=== PATIENT | male | born 1975 | race Caucasian/White ===

== ENCOUNTER 2019-03-14 06:05 | Inpatient (IN) | payer MEDICARE, OTHER ==
[2019-03-14] VITALS (19 sets, daily range): BP systolic 99–158; BP diastolic 64–95
[~2019-03-14] VITALS: Ht 142.2 cm; Wt 44.7 kg
--- NOTE | 2019-03-14 06:00 | NUR ---
Patient admitted to room 105 at 0545 from [facility], this RN received report from Rhina TY. Patient was transferred over to bed, placed on monitor, RT at bedside placed patient on vent. Patient currently sedated. Patient does react to pain. Attempt was made to orient patient to room, call light, and hospital protocol-unable to assess, pt is currently sedated. Family in waiting room updated on patient status. Dr. Leyva called for admission orders.
[~2019-03-14 06:05] MED LIST: CELE200C PO; CHOL500016 PO; OMEP40CA45 PO; PHEN100C PO; PHEN50TA3 PO; [UNRECOGNIZED DRUG - OTHER] PO
[2019-03-14] MEDS ORDERED: MORPHINE SULFATE 2 MG/ML VIAL. IV PRN (06:30)
[2019-03-14] MEDS ORDERED: fentaNYL PF VIAL 100 MCG/2 ML VIAL IV PRN ×2 (06:30)
[2019-03-14] MEDS ORDERED: PROPOFOL 100 ML IV PRN (06:30)
[2019-03-14] MEDS ORDERED: MORPHINE SULFATE 4 MG/ML VIAL. IV PRN (06:30)
[2019-03-14] MEDS ORDERED: ASPIRIN ENTERIC COATED 325 MG TABLET.DR. PO SCH (08:00)
[2019-03-14 08:09] LABS: BASO % 0 % (0-3); EOS % 0 % (0-3); HEMATOCRIT 42.4 % (39.0-53.0); HEMOGLOBIN 14.5 g/dL (13.0-17.5); LYMPH # 0.7 x10^3/uL (1.0-4.8); LYMPH % 6 % (24-48); MEAN CORPUSCULAR HEMOGLOBIN 31 pg (25-35); MEAN CORPUSCULAR HGB CONC 34 g/dL (31-37); MEAN CORPUSCULAR VOLUME 90 fL (79-100); MONO # 0.7 x10^3/uL (0.0-1.1); MONO % 6 % (0-9); NEUT # 11.5 x10^3/uL (1.8-7.7); NEUT % 89 % (31-73); PLATELET COUNT 130 x10^3/uL (140-400); RED BLOOD COUNT 4.69 x10^6/uL (4.30-5.70); WHITE BLOOD COUNT 12.9 x10^3/uL (4.0-11.0)
--- NOTE | 2019-03-14 08:31 | RAD ---
PORTABLE CHEST 1V INDICATION: Intubated. COMPARISON STUDY: 03/14/2019. FINDINGS: Left chest tube in place, with sidehole overlying the chest wall. Stable endotracheal tube, enteric tube, and left IJ central venous catheter Lungs: Partially expanded left lung. Stable left lung opacities. Pleura: Persistent left pneumothorax. Heart and Mediastinum: Stable cardiomediastinal silhouette and great vessels. IMPRESSION: 1. Left chest tube with sidehole overlying the chest wall, possibly not within the pleural space. Remaining life support devices as above. 2. Partial expansion of the left lung with persistent pneumothorax. Electronically signed by: Patrick Palma MD (03/14/2019 8:28 AM) [facility]
[2019-03-14 08:37] LABS: ALBUMIN 3.3 g/dL (3.4-5.0); ALBUMIN/GLOBULIN RATIO 0.8 (1.0-1.7); CALCIUM 9.5 mg/dL (8.5-10.1); CREATININE 0.6 mg/dL (0.7-1.3); GFR 147.8; POTASSIUM 3.6 mmol/L (3.5-5.1); TOTAL BILIRUBIN 0.4 mg/dL (0.2-1.0); TOTAL PROTEIN 7.6 g/dL (6.4-8.2)
[2019-03-14] MEDS ORDERED: ACETAMINOPHEN 325 MG TABLET. PO PRN (08:45)
[2019-03-14] MEDS ORDERED: ASPIRIN RECTAL 300 MG SUPP. PR PRN (08:45)
[2019-03-14] MEDS: CHLORHEXIDINE 0.12% 15 ML MOUTHWASH. MM SCH ×2 (09:00→21:40)
[2019-03-14] MEDS: AMINO AC 3%/ELECTROLYTE/GLYCER 1,000 ML IV SCH ×2 (09:09→21:42)
[2019-03-14] MEDS: FOSPHENYTOIN 100 MG/2 ML VIAL. IV SCH ×3 (09:10→21:41)
[2019-03-14] MEDS: PANTOPRAZOLE IV PUSH 40 MG VIAL. IVP SCH ×2 (09:10→21:41)
[2019-03-14 09:42] LABS: BASE EXCESS ABG 7 mmol/L (-3-3); HCO3 ABG 30 mmol/L (21-28); PCO2 ABG 37 mmHg (35-46); PO2 ABG 249 mmHg (75-108); SAT O2 ABG 99 % (92-99)
[2019-03-14 09:44] LABS: FIO2 ABG 80
[2019-03-14 11:17] LABS: % BANDS 15 % (0-9); % LYMPHS 9 % (24-48); % MONOS 5 % (0-10); % SEGS 71 % (35-66); PLT ESTIMATE DECREASED (ADEQUATE)
--- NOTE | 2019-03-14 11:29 | PDOC2 ---
NEUROLOGY CONSULT Date of Admission Date of Admission DATE: 03/14/19 TIME: 11:20 Reason for Consult Reason for Consult: stroke Referring Physician Referring Physician: Dr. Leyva Source Source: Chart review History of Present Illness History of Present Illness The patient is a 44-year-old retirement resident with history of cerebral palsy and seizures. He came to [facility] yesterday with nausea, vomiting, diarrhea, malaise, weakness, and fever. He did have lactic acidosis. There was also leukocytosis. CT of the abdomen showed gastric distention with air and contrast fluid level. He developed increasing respiratory distress and obtundation. He had a central line placed which caused a pneumothorax and then was intubated. he has not had any witness seizure activity. He did have abnormal head CT as reviewed below, CT in [place] was negative. There is no listed history of stroke. Past Medical History Cardiovascular: Other ( congenital heart disease, details not known) CENTRAL NERVOUS SYSTEM: Seizure, Other (Cerebral palsy) GI: Other ( esophagitis) Renal/: Urinary Incontinence Past Surgical History Past Surgical History: No pertinent history Family History Family History: Other ( unknown) Social History Social History Lives in retirement, no known tobacco, alcohol, or street drug use Current Medications Current Medications Current Medications Fentanyl Citrate 30 ml @ 0 mls/hr CONT PRN IV SEE PROTOCOL; Start 03/14/19 at 06:30 Propofol 100 ml @ 0 mls/hr CONT PRN IV SEE PROTOCOL; Start 03/14/19 at 06:30 Fentanyl Citrate (Fentanyl 2ml Vial) 25 mcg PRN Q1HR PRN IV SEE COMMENTS; Start 03/14/19 at 06:30 Fentanyl Citrate (Fentanyl 2ml Vial) 50 mcg PRN Q1HR PRN IV SEE COMMENTS; Start 03/14/19 at 06:30 Chlorhexidine Gluconate (Peridex) 15 ml BID MM ; Start 03/14/19 at 09:00 Morphine Sulfate (Morphine Sulfate) 2 mg PRN Q1HR PRN IV SEE COMMENTS.; Start 03/14/19 at 06:30 Morphine Sulfate (Morphine Sulfate) 4 mg PRN Q1HR PRN IV SEE COMMENTS.; Start 03/14/19 at 06:30 Ceftriaxone Sodium (Rocephin) 1 gm Q24H IVP ; Start 03/14/19 at 11:00 Metronidazole 100 ml @ 100 mls/hr Q8HRS IV Last administered on 03/14/19 09:11; Start 03/14/19 at 09:00 Fosphenytoin Sodium (Cerebyx) 100 mg Q8HRS IV Last administered on 03/14/19 09:10; Start 03/14/19 at 09:00 Pantoprazole Sodium (PROTONIX VIAL for IV PUSH) 40 mg BID IVP Last administered on 03/14/19 09:10; Start 03/14/19 at 09:00 Amino Acids/ Glycerin/ Electrolytes 1,000 ml @ 80 mls/hr [id number] IV Last administered on 03/14/19 09:09; Start 03/14/19 at 08:45 Acetaminophen (Tylenol) 650 mg PRN Q6HRS PRN PO TEMP > 100.4F; Start 03/14/19 at 08:45 Acetaminophen (Tylenol Supp) 650 mg PRN Q4HRS PRN VA TEMP > 100.4F; Start 03/14/19 at 08:45 Aspirin (Ecotrin) 325 mg [id number] PO Last administered on 03/14/19 09:14; Start 03/14/19 at 08:00 Aspirin (Aspirin Rectal Supp) 300 mg PRN DAILY PRN VA IF UNABLE TO TAKE PO; Start 03/14/19 at 08:45 Active Scripts Active Reported Omeprazole 40 Mg Capsule.dr 40 Mg PO DAILY Phenytoin 50 Mg Tab.chew 100 Mg PO QHS Phenytoin 50 Mg Tab.chew 75 Mg PO DAILY08 Allergies Allergies: Coded Allergies: No Known Drug Allergies (Unverified , 10/10/14) ROS Review of System Not reliably obtained Physical Exam Physical Examination General: Well-developed, well-nourished white male in no acute distress HEENT: Normocephalic andatraumatic. Temporal arteriespulsatile and nontender. Neck: Supple without bruit, no meningismus Musculoskeletal: Stability:see neurologic. Gait exam:see neurologic. Tone:see neurologic.Strength:see neurologic. Neurological: Mental Status:orientation, memory, attention span/concentration, language, fund of knowledge: intubated and sedated. Cranial Nerves:Pupils equal and reactive to light. There is no facial asymmetry. All other cranial related problems are negative except as mentioned before.Reflexes:2+ and symmetric with silent p lantar responses. Motor: No movement to pain, increased tone in all 4 extremities. Coordination and gait:Not testable. Sensory: not testable. Vitals VITALS Vital Signs Date Time Temp Pulse Resp B/P (MAP) Pulse Ox O2 Delivery O2 Flow Rate FiO2 03/14/19 09:00 100 Ventilator 03/14/19 06:45 58 16 141/86 (104) 03/14/19 06:00 98.1 98.1 Labs Labs Laboratory Tests Test 03/14/19 07:57 03/14/19 09:00 White Blood Count 12.9 x10^3/uL (4.0-11.0) Red Blood Count 4.69 x10^6/uL (4.30-5.70) Hemoglobin 14.5 g/dL (13.0-17.5) Hematocrit 42.4 % (39.0-53.0) Mean Corpuscular Volume 90 fL (79-100) Mean Corpuscular Hemoglobin 31 pg (25-35) Mean Corpuscular Hemoglobin Concent 34 g/dL (31-37) Red Cell Distribution Width 14.0 % (11.5-14.5) Platelet Count 130 x10^3/uL (140-400) Neutrophils (%) (Auto) 89 % (31-73) Lymphocytes (%) (Auto) 6 % (24-48) Monocytes (%) (Auto) 6 % (0-9) Eosinophils (%) (Auto) 0 % (0-3) Basophils (%) (Auto) 0 % (0-3) Neutrophils # (Auto) 11.5 x10^3/uL (1.8-7.7) Lymphocytes # (Auto) 0.7 x10^3/uL (1.0-4.8) Monocytes # (Auto) 0.7 x10^3/uL (0.0-1.1) Eosinophils # (Auto) 0.0 x10^3/uL (0.0-0.7) Basophils # (Auto) 0.0 x10^3/uL (0.0-0.2) Segmented Neutrophils % 71 % (35-66) Band Neutrophils % 15 % (0-9) Lymphocytes % 9 % (24-48) Monocytes % 5 % (0-10) Platelet Estimate Decreased (ADEQUATE) Sodium Level 149 mmol/L (136-145) Potassium Level 3.6 mmol/L (3.5-5.1) Chloride Level 110 mmol/L (98-107) Carbon Dioxide Level 31 mmol/L (21-32) Anion Gap 8 (6-14) Blood Urea Nitrogen 5 mg/dL (8-26) Creatinine 0.6 mg/dL (0.7-1.3) Estimated GFR (Cockcroft-Gault) 147.8 BUN/Creatinine Ratio 8 (6-20) Glucose Level 124 mg/dL (70-99) Lactic Acid Level 1.8 mmol/L (0.4-2.0) Calcium Level 9.5 mg/dL (8.5-10.1) Total Bilirubin 0.4 mg/dL (0.2-1.0) Aspartate Amino Transf (AST/SGOT) 39 U/L (15-37) Alanine Aminotransferase (ALT/SGPT) 26 U/L (16-63) Alkaline Phosphatase 106 U/L (46-116) Total Protein 7.6 g/dL (6.4-8.2) Albumin 3.3 g/dL (3.4-5.0) Albumin/Globulin Ratio 0.8 (1.0-1.7) O2 Saturation 99 % (92-99) Arterial Blood pH 7.52 (7.35-7.45) Arterial Blood pCO2 at Patient Temp 37 mmHg (35-46) Arterial Blood pO2 at Patient Temp 249 mmHg (75-108) Arterial Blood HCO3 30 mmol/L (21-28) Arterial Blood Base Excess 7 mmol/L (-3-3) FiO2 80 Laboratory Tests Test 03/14/19 07:57 03/14/19 09:00 White Blood Count 12.9 x10^3/uL (4.0-11.0) Red Blood Count 4.69 x10^6/uL (4.30-5.70) Hemoglobin 14.5 g/dL (13.0-17.5) Hematocrit 42.4 % (39.0-53.0) Mean Corpuscular Volume 90 fL (79-100) Mean Corpuscular Hemoglobin 31 pg (25-35) Mean Corpuscular Hemoglobin Concent 34 g/dL (31-37) Red Cell Distribution Width 14.0 % (11.5-14.5) Platelet Count 130 x10^3/uL (140-400) Neutrophils (%) (Auto) 89 % (31-73) Lymphocytes (%) (Auto) 6 % (24-48) Monocytes (%) (Auto) 6 % (0-9) Eosinophils (%) (Auto) 0 % (0-3) Basophils (%) (Auto) 0 % (0-3) Neutrophils # (Auto) 11.5 x10^3/uL (1.8-7.7) Lymphocytes # (Auto) 0.7 x10^3/uL (1.0-4.8) Monocytes # (Auto) 0.7 x10^3/uL (0.0-1.1) Eosinophils # (Auto) 0.0 x10^3/uL (0.0-0.7) Basophils # (Auto) 0.0 x10^3/uL (0.0-0.2) Segmented Neutrophils % 71 % (35-66) Band Neutrophils % 15 % (0-9) Lymphocytes % 9 % (24-48) Monocytes % 5 % (0-10) Platelet Estimate Decreased (ADEQUATE) Sodium Level 149 mmol/L (136-145) Potassium Level 3.6 mmol/L (3.5-5.1) Chloride Level 110 mmol/L (98-107) Carbon Dioxide Level 31 mmol/L (21-32) Anion Gap 8 (6-14) Blood Urea Nitrogen 5 mg/dL (8-26) Creatinine 0.6 mg/dL (0.7-1.3) Estimated GFR (Cockcroft-Gault) 147.8 BUN/Creatinine Ratio 8 (6-20) Glucose Level 124 mg/dL (70-99) Lactic Acid Level 1.8 mmol/L (0.4-2.0) Calcium Level 9.5 mg/dL (8.5-10.1) Total Bilirubin 0.4 mg/dL (0.2-1.0) Aspartate Amino Transf (AST/SGOT) 39 U/L (15-37) Alanine Aminotransferase (ALT/SGPT) 26 U/L (16-63) Alkaline Phosphatase 106 U/L (46-116) Total Protein 7.6 g/dL (6.4-8.2) Albumin 3.3 g/dL (3.4-5.0) Albumin/Globulin Ratio 0.8 (1.0-1.7) O2 Saturation 99 % (92-99) Arterial Blood pH 7.52 (7.35-7.45) Arterial Blood pCO2 at Patient Temp 37 mmHg (35-46) Arterial Blood pO2 at Patient Temp 249 mmHg (75-108) Arterial Blood HCO3 30 mmol/L (21-28) Arterial Blood Base Excess 7 mmol/L (-3-3) FiO2 [address] head without contrast: Reason for examination: Pupils nonreactive. Mental status changes. Comparison is made to previous study dated 08/11/2018. Axial images were obtained through the brain. No contrast was administered. Ventricular systems are dilated but unchanged. There appears to be a new large area of decrease density involving the left temporal, parietal and occipital lobes and the left basal ganglia consistent with a large left middle cerebral arterial distribution infarct. There does appear to be a new 5 mm shift of midline to the right. There is no intraparenchymal hemorrhage. No abnormalities of seen at the orbits. No acute bony abnormalities are seen. IMPRESSION: New area of decreased density involving the left temporal, parietal and occipital lobes and the left basal ganglia consistent with a large right middle cerebral arterial distribution infarct. New 5 mm shift of midline to the right. No intraparenchymal hemorrhage evident.. CT angiograms of the head and neck with contrast: Helical images were obtained through the head and neck with intravenous administration of 50 cc Omnipaque 350 using angiographic protocol. 3-D MIPS reconstruction was performed in sagittal and coronal planes. The intracranial carotid arteries bilaterally are patent. There is normal bifurcation into their respective anterior and middle cerebral arteries. A focal site of stenosis or occlusion is not seen. The intracranial vertebral arteries and basilar artery are patent without a site of stenosis or occlusion. There appears be vascular flow in the superior cerebellar and posterior cerebral arteries bilaterally. No large vessel occlusion is identified. The brachiocephalic, left common carotid artery and left subclavian arteries arise from the aorta. The common carotid arteries and internal carotid arteries appear to be patent with no evidence of significant stenosis. The vertebral arteries arise from their respective subclavian arteries and show no evidence of stenosis or occlusions. There appears to be a cystic lesion in the right lobe of the thyroid gland posteriorly measuring approximately 1.5 cm in greatest dimension. Vocal cords are symmetric. Endotracheal tube and NG tube are present. Muscular bundles are symmetric. The parotid and submandibular gland show no gross abnormalities. No acute abnormality seen in the cervical spine. IMPRESSION: No intracranial vascular abnormalities are identified. The carotid and vertebral arteries in the neck are patent. Assessment/Plan Assessment/Plan Impression: Large left middle cerebral artery infarct, unknown time of onset, therefore not a candidate for alteplase or interventional radiology. Carotid studies on CTA are negative. Therefore this may have been a cardio-embolic phenomenon. Medical problems including sepsis syndrome and abdominal process cerebral palsy history Epilepsy history, on phenytoin, on intravenous phenytoin here. Recommendations: MRI of the brain See stroke orders Treatment of medical problems Thank you for letting me help with the patient's care. ROBBY SOLORZANO MD Mar 14, 2019 11:28
[2019-03-14] MEDS: cefTRIAXone IV Push 1 GM VIAL. IVP SCH (11:43)
--- NOTE | 2019-03-14 11:52 | HP ---
ADMIT DATE: 03/14/2019 HISTORY OF PRESENT ILLNESS: The patient is a 44-year-old male patient with cerebral palsy who lived in a care home and was admitted to the Emergency Room of [facility] with recurrent bouts of nausea, vomiting as well as diarrhea. Apparently, his roommate got sick a day before he started having these symptoms. On the day of admission, also has malaise, weakness and fever. His roommate developed episode of nausea, vomiting, diarrhea. No other significant illnesses in the care home were reported. He has been taking his medication as previously directed. He was extensively investigated in the Emergency Room. His lab work showed he has marked lactic acidosis with lactic acid initially as high as 4.1 that has risen further to 7.6; however, his serum lipase and amylase were normal. He did have mild leukocytosis with a white cell count 12,500. His urinalysis was essentially unremarkable. Toxic screen was negative except for his phenytoin level, was anything in the upper limit of normal. He has had acute abdomen series, which showed that there is no new lobar consolidation, pleural fluid or pneumothorax. Pericardial cardiac silhouette is again enlarged. There is unchanged fullness of the right hilar region. There is an S-shaped scoliosis of the thoracolumbar spine. No free air is identified. No gas dilated bowel identified. However CT scan of the abdomen and pelvis showed that the patient has gastric distention with air and contrast fluid level, has thickened wall with narrowed lumen of the duodenum, partial obstruction cannot be excluded. He has prominent renal pelvis bilaterally, but no apparent obstructive uropathy. He did have an NG tube placed. He was started on IV fluid, IV Dilantin, Zofran as well as IV Rocephin and Flagyl. His NG tube was put to intermittent suction and he remained throughout yesterday unresponsive and apparently the patient became extremely short of breath, markedly congested. His IV fluids were turned off. He was given Lasix and thick sputum was suctioned as he was in extreme respiratory distress. The ER physician was consulted. The patient was intubated and apparently had a central line placed. Unfortunately, this resulted in pneumothorax for which a chest tube was placed and eventually the patient was transferred to [facility] Prior to transfer, the patient has a CT scan of the head and neck, which basically showed that the patient has a new area of decreased density involving the left temporoparietal and occipital lobes and left basal ganglia consistent with a large right middle cerebral territory distribution infarct, new 5 mm shift of midline to the right and no intraparenchymal hemorrhage evident. CT angiogram of the head and neck with contrast showed no intracranial vascular abnormality identified. The carotid and vertebral arteries in the neck are patent. CT angiogram of the chest with contrast showed the patient has large left-sided pneumothorax with collapse of the left upper and lower lobes, patchy infiltrate in the right lobe. No evidence of pulmonary embolus and the patient had a chest tube placed and an x-ray was done, showed left chest tube in place with reexpansion of the left lung. There is still some density consistent with atelectasis at the left lung base. The patient was transferred to [facility] with acute hypoxic respiratory failure requiring intubation and mechanical ventilation. He has also iatrogenic pneumothorax for which a chest tube was placed. He has also a new area of decreased density involving the left temporoparietal and occipital lobes and the left basal ganglia consistent with large right middle cerebral artery territory infarct. He was started on propofol as well as fentanyl citrate and we will continue with IV antibiotic in the form of Rocephin and Flagyl. We will consult the sales floor associate as well as the neurologist. PAST MEDICAL HISTORY: Significant for cerebral palsy and seizure disorder. He has some form of congenital heart disease. He also had severe esophagitis and marked cognitive impairment. He has marked muscle wasting and flexion contraction of all 4 limbs. PAST SURGICAL HISTORY: Significant for right great toe amputation done about 12 months ago. FAMILY HISTORY: His mother is . His father is . His grandmother used to be his liner checker and was his DPOA. His aunt now takes care of his financial affairs, but she is not his DPOA. SOCIAL HISTORY: Apparently, he does not smoke, drink alcohol or use recreational drugs. He is single, never , has no children. ALLERGIES: He has no known drug allergies. MEDICATIONS: He is on following medication at care home. He is on phenytoin sodium mg capsule p.o. daily, phenytoin sodium extended release mg daily and phenytoin sodium 100 mg at bedtime. He is on polyethylene glycol 17 grams daily and senna 2 tablets twice a day, omeprazole 40 mg daily. REVIEW OF SYSTEMS: Unobtainable. LABORATORY AND DIAGNOSTIC DATA: His lab work prior to transferring him to [facility] showed a white cell count of 12,900, hemoglobin 14, hematocrit 43, MCV 91, and platelet count of 137,000 with normal manual differential. His chemistry showed a serum sodium 146, potassium 2.8, chloride 106, bicarbonate 31, anion gap of 9, BUN 5, creatinine 0.7, estimated GFR was 123 mL per minute, his glucose 114, calcium was 9.3. Total bilirubin, AST, ALT, alkaline phosphatase were normal. Total protein was 7.1, albumin was 3.1. His prothrombin time, INR and aPTT were all normal. Urinalysis was essentially unremarkable. Toxic screen was also unremarkable and serology for influenza A and B were negative. ASSESSMENT AND PLAN: In summary, this is a 44-year-old male patient with cerebral palsy who is a care home resident, was admitted originally with recurrent bouts of nausea, vomiting, diarrhea. He was noted to have marked gastric dilatation and also wall thickening and narrowing of the lumen of the duodenum for which he has an NG tube that was put to intermittent suction. He was started on IV antibiotic for possible aspiration in the form of Rocephin and Flagyl. He apparently became extremely short of breath and underwent chest x-ray. His IV fluids were discontinued. He was again treated with Lasix, was intubated, started on mechanical ventilation. He has also a central line placed, unfortunately that was complicated by pneumothorax that required chest tube placement. His CT scan of the head showed that he has large infarct involving the left temporoparietal and occipital lobes and the left basal ganglia consistent with large right middle cerebral artery distribution infarct. The plan is obviously to continue with NG tube to intermittent suction. He has hypokalemia, we will replenish. Continue mechanical ventilation. We will continue with IV antibiotic. Consulting the sales floor associate as well as the neurologist. Currently, his aunt takes care of financial affairs but not DPOA. CAREY BURTON MD DR: ELE/quita JOB#: [id number] / [id number]
--- NOTE | 2019-03-14 12:10 | NUR ---
SS following for discharge planning. SS reviewed pt chart and spoke with pt's Aunt, Lynette, via phone. Pt is from [facility], , in [place], [place]. Pt is currently on the vent. SS will continue to follow for discharge planning.
--- NOTE | 2019-03-14 12:33 | PDOC ---
PULMONARY PROGRESS NOTES Vitals Vital Signs Date Time Temp Pulse Resp B/P (MAP) Pulse Ox O2 Delivery O2 Flow Rate FiO2 03/14/19 09:00 100 Ventilator 03/14/19 06:45 58 16 141/86 (104) 03/14/19 06:00 98.1 98.1 Labs Laboratory Tests Test 03/14/19 07:57 03/14/19 09:00 White Blood Count 12.9 x10^3/uL (4.0-11.0) Red Blood Count 4.69 x10^6/uL (4.30-5.70) Hemoglobin 14.5 g/dL (13.0-17.5) Hematocrit 42.4 % (39.0-53.0) Mean Corpuscular Volume 90 fL (79-100) Mean Corpuscular Hemoglobin 31 pg (25-35) Mean Corpuscular Hemoglobin Concent 34 g/dL (31-37) Red Cell Distribution Width 14.0 % (11.5-14.5) Platelet Count 130 x10^3/uL (140-400) Neutrophils (%) (Auto) 89 % (31-73) Lymphocytes (%) (Auto) 6 % (24-48) Monocytes (%) (Auto) 6 % (0-9) Eosinophils (%) (Auto) 0 % (0-3) Basophils (%) (Auto) 0 % (0-3) Neutrophils # (Auto) 11.5 x10^3/uL (1.8-7.7) Lymphocytes # (Auto) 0.7 x10^3/uL (1.0-4.8) Monocytes # (Auto) 0.7 x10^3/uL (0.0-1.1) Eosinophils # (Auto) 0.0 x10^3/uL (0.0-0.7) Basophils # (Auto) 0.0 x10^3/uL (0.0-0.2) Segmented Neutrophils % 71 % (35-66) Band Neutrophils % 15 % (0-9) Lymphocytes % 9 % (24-48) Monocytes % 5 % (0-10) Platelet Estimate Decreased (ADEQUATE) Sodium Level 149 mmol/L (136-145) Potassium Level 3.6 mmol/L (3.5-5.1) Chloride Level 110 mmol/L (98-107) Carbon Dioxide Level 31 mmol/L (21-32) Anion Gap 8 (6-14) Blood Urea Nitrogen 5 mg/dL (8-26) Creatinine 0.6 mg/dL (0.7-1.3) Estimated GFR (Cockcroft-Gault) 147.8 BUN/Creatinine Ratio 8 (6-20) Glucose Level 124 mg/dL (70-99) Lactic Acid Level 1.8 mmol/L (0.4-2.0) Calcium Level 9.5 mg/dL (8.5-10.1) Total Bilirubin 0.4 mg/dL (0.2-1.0) Aspartate Amino Transf (AST/SGOT) 39 U/L (15-37) Alanine Aminotransferase (ALT/SGPT) 26 U/L (16-63) Alkaline Phosphatase 106 U/L (46-116) Total Protein 7.6 g/dL (6.4-8.2) Albumin 3.3 g/dL (3.4-5.0) Albumin/Globulin Ratio 0.8 (1.0-1.7) O2 Saturation 99 % (92-99) Arterial Blood pH 7.52 (7.35-7.45) Arterial Blood pCO2 at Patient Temp 37 mmHg (35-46) Arterial Blood pO2 at Patient Temp 249 mmHg (75-108) Arterial Blood HCO3 30 mmol/L (21-28) Arterial Blood Base Excess 7 mmol/L (-3-3) FiO2 80 Laboratory Tests Test 03/14/19 07:57 03/14/19 09:00 White Blood Count 12.9 x10^3/uL (4.0-11.0) Red Blood Count 4.69 x10^6/uL (4.30-5.70) Hemoglobin 14.5 g/dL (13.0-17.5) Hematocrit 42.4 % (39.0-53.0) Mean Corpuscular Volume 90 fL (79-100) Mean Corpuscular Hemoglobin 31 pg (25-35) Mean Corpuscular Hemoglobin Concent 34 g/dL (31-37) Red Cell Distribution Width 14.0 % (11.5-14.5) Platelet Count 130 x10^3/uL (140-400) Neutrophils (%) (Auto) 89 % (31-73) Lymphocytes (%) (Auto) 6 % (24-48) Monocytes (%) (Auto) 6 % (0-9) Eosinophils (%) (Auto) 0 % (0-3) Basophils (%) (Auto) 0 % (0-3) Neutrophils # (Auto) 11.5 x10^3/uL (1.8-7.7) Lymphocytes # (Auto) 0.7 x10^3/uL (1.0-4.8) Monocytes # (Auto) 0.7 x10^3/uL (0.0-1.1) Eosinophils # (Auto) 0.0 x10^3/uL (0.0-0.7) Basophils # (Auto) 0.0 x10^3/uL (0.0-0.2) Segmented Neutrophils % 71 % (35-66) Band Neutrophils % 15 % (0-9) Lymphocytes % 9 % (24-48) Monocytes % 5 % (0-10) Platelet Estimate Decreased (ADEQUATE) Sodium Level 149 mmol/L (136-145) Potassium Level 3.6 mmol/L (3.5-5.1) Chloride Level 110 mmol/L (98-107) Carbon Dioxide Level 31 mmol/L (21-32) Anion Gap 8 (6-14) Blood Urea Nitrogen 5 mg/dL (8-26) Creatinine 0.6 mg/dL (0.7-1.3) Estimated GFR (Cockcroft-Gault) 147.8 BUN/Creatinine Ratio 8 (6-20) Glucose Level 124 mg/dL (70-99) Lactic Acid Level 1.8 mmol/L (0.4-2.0) Calcium Level 9.5 mg/dL (8.5-10.1) Total Bilirubin 0.4 mg/dL (0.2-1.0) Aspartate Amino Transf (AST/SGOT) 39 U/L (15-37) Alanine Aminotransferase (ALT/SGPT) 26 U/L (16-63) Alkaline Phosphatase 106 U/L (46-116) Total Protein 7.6 g/dL (6.4-8.2) Albumin 3.3 g/dL (3.4-5.0) Albumin/Globulin Ratio 0.8 (1.0-1.7) O2 Saturation 99 % (92-99) Arterial Blood pH 7.52 (7.35-7.45) Arterial Blood pCO2 at Patient Temp 37 mmHg (35-46) Arterial Blood pO2 at Patient Temp 249 mmHg (75-108) Arterial Blood HCO3 30 mmol/L (21-28) Arterial Blood Base Excess 7 mmol/L (-3-3) FiO2 80 Medications Active Scripts Medications Dose Route/Sig Max Daily Dose Days Date Category Omeprazole 40 Mg Capsule.dr 40 Mg PO DAILY 04/30/18 Reported Phenytoin 50 Mg Tab.chew 100 Mg PO QHS 04/30/18 Reported Phenytoin 50 Mg Tab.chew 75 Mg PO DAILY08 04/30/18 Reported Impression . NOTE DICTATED REMOVED CHEST TUBE NON FUNCTIONAL REPLACED WITH SMALL COOK CATH NO COMPLICATIONS WILL CONTINUE SUPPORT FOR RESP FAILURE AND SEPSIS NEURO CONSULTED ALEX LYONS MD Mar 14, 2019 12:33
--- NOTE | 2019-03-14 13:36 | RAD ---
PORTABLE CHEST 1V 1:02 PM Clinical indications: Chest tube placement Comparison: Same day performed at 7:06 AM Findings: Previously seen large bore left-sided chest tube has been replaced with a smaller bore chest tube. The tip of this chest tube is located within the medial upper aspect. No pneumothorax is seen. No pleural effusion is evident. Atelectasis of the left lung field has improved. No new lung infiltrate is seen on the right side. NG tube tip remains within the proximal body of the stomach. ET tube tip is located 2.5 cm above the level of the jovita. Left IJ central line tip is seen within the left brachiocephalic vein. IMPRESSION: Placement of a new smaller bore left-sided chest tube with no pneumothorax. Improvement of left lung field atelectasis. Electronically signed by: Cody Sinclair MD (03/14/2019 1:33 PM) [facility]
[2019-03-14] MEDS ORDERED: PHEN50TA3 PO (15:57)
--- NOTE | 2019-03-14 16:01 | RAD ---
MRI Brain without contrast History: CVA Technique: Multiplanar, multisequential noncontrast MR imaging was performed of the brain. Comparison: There is no previous MRI exam available, correlation made to 03/14/2019 and August 11, [address] exams Findings: There is very large area of restricted diffusion of the left cerebral hemisphere greatest of the temporal occipital lobes extending to the parasagittal parietal lobe with separate small focus of the left frontal cortex also foci of the left thalamus and basal ganglia. There is also restricted diffusion involving the right temporal lobe greater medially. There is left uncal herniation. There is degree of herniation of the medial left temporal lobe inferior to the tentorium by about 2 cm. There is also lesser degree of inferior herniation of the right temporal parenchyma estimated about 1 cm. There is also degree of diffusion signal abnormality of the distorted brainstem and martín, also seen T2 and FLAIR hyperintense signal. There is associated variable acute parenchymal hemorrhage of the left temporal lobe extending to the cortical surface, hypointense on the T2 sequence and mostly isointense on T1 sequence with associated prominent decreased signal on gradient echo sequence. This also involves the inferiorly herniated portion of the left temporal lobe. There is also focus of parenchymal hemorrhage of the medial right temporal lobe site of restricted diffusion, also hypointense on T2 sequence, isointense very slightly hyperintense on T1 sequence and associated decreased signal greatest of sequence adjacent vasogenic edema or defined by T2 and FLAIR hyperintense signal. Right temporal horn is dilated, effacement of the left temporal horn. There is mild intraventricular hemorrhage in the left occipital horn. There is again lateral ventriculomegaly although findings present on older head CT exam. There is again more focal volume loss extending to the cortical surface of the left frontal lobe. There is fairly diffuse dysplastic appearance of the brain parenchyma other than sparing of the frontal lobes and segments of the left temporal lobe. There is visualization of the internal carotid arteries otherwise bilaterally at the skull base although intradural vertebral artery flow void not well- visualized on either side. Basilar artery flow-void is visualized. Small focus of signal change of the right martín is likely sequela of old lacunar infarct, also small focus along the margin of left lateral ventricle. Some mild increased FLAIR signal in the region of sylvian fissures bilaterally concerning for subarachnoid hemorrhage. Fourth ventricle is effaced greater inferiorly. Cerebellar tonsils are at the lower limits of normal. Impression: 1. There are large areas of restricted diffusion bilaterally greater on the left, evidence of recent acute/early subacute infarcts with areas of acute parenchymal hemorrhage and also mild intraventricular hemorrhage, also probable degree of subarachnoid hemorrhage. There is degree of inferior herniation of the hemorrhagic medial left temporal lobe below the tentorium by about 2 cm, to lesser degree on the right. There is left uncal herniation. There is distortion of the brainstem and superior martín. There is also diffusion signal abnormality of the brainstem likely component of ischemia and edema. Cerebellar tonsils at the lower limits of normal, effacement of the fourth ventricle greater inferiorly. 2. Intradural vertebral artery flow voids are not well visualized on either side on this exam although visualization of the basilar artery flow-void. 3. 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 4. There is again lateral ventriculomegaly although more chronic appearance. There is effacement of the left temporal horn, dilatation of the right temporal horn. Findings discussed with patient's nurse Hyacinth at 03/14/2019 2:23 PM, to inform doctor of findings. FOR INTERNAL CODING PURPOSES RESULT CODE: (C) MTDD
--- NOTE | 2019-03-14 18:09 | PDOC2 ---
PALLIATIVE CARE Palliative Care Note Palliative Care Consult requested by to address goals of care. Medical Assessment per medical record; Patient is intubated. Unresponsive to stimuli. Pupils equal -unresponsive. Vamsi+; Breeathing slightly over the vent. Gastric distention--NG tube. Aspiration; Pneumothorax --chest tube CVA--hemorrhagic---seen by Dr. Leal Patient was living in a correction. Parents are . Lynette Lantigua is his aunt/ POA for financial. No DPOA for health care. Per staff Dr. Leal will be talking with his Aunt at 9am. Code Status; Full Code. Plan: Arrange family meeting after Dr. Leal has discussion with aunt. SILVERIO HARPER Mar 14, 2019 18:09
--- NOTE | 2019-03-14 19:56 | CONS ---
DATE OF CONSULTATION: 03/14/2019 ATTENDING PHYSICIAN: Dr. Leyva. CONSULTING PHYSICIAN: Dr. Alex Lyons. REASON FOR CONSULTATION: The patient seen in pulmonary consultation at the request of Dr. Leyva for respiratory failure and vent management. HISTORY OF PRESENT ILLNESS: The patient is a 44-year-old group resident that has a history of cerebral palsy and seizures, came into the Emergency Room with nausea, vomiting, diarrhea, malaise, weakness, and fever. He had elevated lactic acid level. The patient had leukocytosis. The CT abdomen showed some gastric distention. The patient developed increasing respiratory failure. He subsequently underwent intubation, required a central line for IV fluids and IV antibiotics. Subsequently, had a complication of a pneumothorax, a chest tube was placed. The patient underwent a CT head, which was negative. He was transferred to [facility]. He is currently being treated for a sepsis. I discussed the case with Dr. Leyva. The patient is currently receiving IV antibiotics. I reviewed his x-ray, which reveals that the chest tube may be malpositioned outside of the pleural cavity. He does not have an air leak on chest tube. PAST MEDICAL HISTORY: Cerebral palsy, seizure disorder, some form of congenital heart disease. He has severe esophagitis, cognitive impairment, muscle wasting, and four-limb contractures. PAST SURGICAL HISTORY: Previous right toe amputation done approximately 12 months ago. FAMILY HISTORY: Mother and father . He has a grandmother, who used to be his caregiver and DPOA, his aunt is now his DPOA. Socially, he lives in a prison. No history of alcoholism. ALLERGIES: No known drug allergies. REVIEW OF SYSTEMS: Unobtainable secondary to the patient's condition. CURRENT MEDICATIONS: List was reviewed. He is receiving IV Flagyl along with the IV Rocephin. PHYSICAL EXAMINATION: GENERAL: The patient was in the intensive care unit. VITAL SIGNS: Stable. He is hemodynamically stable. Temperature is 98.1. HEENT: Orally placed endotracheal tube. CHEST: Full expansion, no wheezes. CARDIOVASCULAR: Regular rate and rhythm with S1, S2, no S3. ABDOMEN: Soft. EXTREMITIES: Contractures. NEUROLOGIC: The patient was sedated. LABORATORY DATA: Arterial blood gas revealed a pH of 7.52, PaCO2 of 37, pO2 of 239. White count was 12.9, hemoglobin and hematocrit were noted, and platelet count was 130. Electrolytes were noted. Sodium was elevated. Chloride was elevated. BUN was 5, creatinine was 0.6, glucose was 124. AST 39, albumin was 3.3. Chest x-ray once again revealed left-sided chest tube in place, malpositioned. There was partial expansion of the left lung. IMPRESSION: 1. Acute respiratory failure, multifactorial. 2. Suspect sepsis. 3. Large left middle cerebral artery infarct, unknown time of onset. 4. Cerebral palsy. 5. Epilepsy by history. 6. Nausea, vomiting, and diarrhea. 7. Possible aspiration pneumonia. PLAN: 1. We will continue current plan and continue current support with the assist ventilation and make adjustments to normalize pH. 2. Replace chest tube. 3. Empiric antibiotics. 4. Follow Neurology input. 5. Routine labs and follow routine labs. I do appreciate the privilege in sharing in the patient's care. ALEX LYONS MD DR: EVIE/quita JOB#: [id number] / [id number]
[2019-03-14] MEDS: ACETAMINOPHEN 650 MG SUPP.RECT. PR PRN (21:48)
[2019-03-15] VITALS (24 sets, daily range): BP systolic 109–137; BP diastolic 66–89
[2019-03-15] MEDS: FOSPHENYTOIN 100 MG/2 ML VIAL. IV SCH ×3 (06:00→22:00)
[2019-03-15 06:45] LABS: CHOLESTEROL/HDL RATIO 2.1
--- NOTE | 2019-03-15 07:38 | RAD ---
Examination: PORTABLE CHEST 1V History: Respiratory failure Comparison/Correlation: 03/14/2019 Portable Chest X-ray Exam Findings: Portable semiupright frontal view of the chest was obtained. Endotracheal tube and nasogastric tube are again seen. Left internal jugular catheter is again seen terminating within the left brachiocephalic vein. Tubing at the left lung base again seen. No pneumothorax. Left perihilar opacity which may represent atelectasis or scarring is again seen. Right lung field is clear. Levo convexity of the thoracolumbar spine is evident. Old left rib fractures are present. Impression: No change in pulmonary aeration. Electronically signed by: Esvin Crockett MD (03/15/2019 7:35 AM) [facility]
[2019-03-15 08:06] LABS: BASE EXCESS ABG 6 mmol/L (-3-3); HCO3 ABG 30 mmol/L (21-28); PCO2 ABG 44 mmHg (35-46); PO2 ABG 99 mmHg (75-108); SAT O2 ABG 98 % (92-99)
--- NOTE | 2019-03-15 08:22 | PN ---
DATE: 03/15/2019 SUBJECTIVE: The patient is resting slightly propped up in bed, in no apparent distress. He is on mechanical ventilation; however, he was able to breathe on his own, has a gag reflex. He has had an MRI done yesterday, which showed that the patient has large areas of restricted diffusion bilaterally, greater on the left, evidence of recent acute or early subacute infarct with areas of acute parenchymal hemorrhage and also mild intraventricular hemorrhage and also probable degree of subarachnoid hemorrhage. There is also degree of inferior herniation with the hemorrhagic medial left temporal lobe below the tentorium by about 2 cm to a lesser degree on the right. There is left uncal herniation. There is distortion of the brain stem and superior martín. There is also diffusion signal abnormality of the brainstem, likely component of ischemia and edema. Cerebellar tonsils at the lower limit of normal. Effacement of the fourth ventricle greater inferiorly. Intradural vertebral artery flow voids are not well visualized on either side of this exam, although visualization of the basilar artery flow void. Fairly diffuse dysplastic appearance of the brain. There is again more focal volume loss and encephalomalacia extending to the critical surface of the left frontal lobe, likely sequelae of old infarct. There is again lateral ventriculomegaly, although more chronic appearance. There is effacement of the left temporal horn, dilatation of the right temporal horn. His chest x-ray showed no pneumothorax, left perihilar opacity, which may represent atelectasis or scarring is again seen. Right lung montero are clear. Levoconvexity of the thoracolumbar spine is evident. Old left rib fractures are present. PHYSICAL EXAMINATION: GENERAL: On examining him this morning, he was resting slightly propped up in bed, no apparent distress. He was pale, cachectic, but no jaundice, cyanosis or thyromegaly. No jugular venous distention. No lower limb edema. VITAL SIGNS: His heart rate was 70, blood pressure was 129/82, temperature was 98.9, respiratory rate was 12 and oxygen saturation was 99%. HEAD, EYES, EARS, NOSE AND THROAT: Normocephalic, atraumatic. He has orotracheal and orogastric tube in place. NECK: Supple. HEART: Showed normal first and second heart sounds. No gallop or murmur. CHEST: Clear to auscultation. No crepitation or rhonchi. ABDOMEN: Distended, soft, nontender. NEUROLOGIC: He is encephalopathic, has marked muscle wasting and fixed flexion contracture. His intake was 1870, output was 2260. LABORATORY DATA: As of this morning, his white cell count was 12,900, hemoglobin 14.5, hematocrit 42, MCV 90 and platelet count 130,000. His chemistry as of yesterday showed a serum sodium 149, potassium 3.6, chloride 110, bicarbonate 31, anion gap of 8, BUN 5, creatinine was 0.6, estimated GFR was 147 mL per minute. His blood gases showed a pH of 7.52, pCO2 of 37, pO2 of 149, bicarbonate 30, and oxygen saturation was 99% on FiO2 of 80%. ASSESSMENT: 1. Acute respiratory failure. 2. 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 3. Cerebral palsy. 4. Epilepsy. 5. Nausea and vomiting and diarrhea, subsided, possible aspiration pneumonia and pneumothorax. PLAN: Continue with mechanical ventilation. Continue with empiric antibiotic. Await discussion between the family and palliative care team. CAREY BURTON MD DR: ELE/quita JOB#: [id number] / [id number]
[2019-03-15 08:28] LABS: FIO2 ABG 40
[2019-03-15] MEDS: PANTOPRAZOLE IV PUSH 40 MG VIAL. IVP SCH ×2 (10:22→21:13)
[2019-03-15] MEDS: AMINO AC 3%/ELECTROLYTE/GLYCER 1,000 ML IV SCH ×2 (10:22→22:15)
[2019-03-15] MEDS: CHLORHEXIDINE 0.12% 15 ML MOUTHWASH. MM SCH ×2 (10:22→21:13)
--- NOTE | 2019-03-15 10:35 | PDOC ---
PULMONARY PROGRESS NOTES Subjective ON VENT AC MODE Vitals Vital Signs Date Time Temp Pulse Resp B/P (MAP) Pulse Ox O2 Delivery O2 Flow Rate FiO2 03/15/19 09:15 98 Ventilator 03/15/19 07:00 70 12 129/82 (98) 03/15/19 04:00 98.9 98.9 Lungs: Clear Cardiovascular: S1, S2 Abdomen: Soft Extremities: Other (NO CHANGE) Labs Laboratory Tests Test 03/14/19 07:57 03/14/19 09:00 03/15/19 06:05 03/15/19 08:00 White Blood Count 12.9 x10^3/uL (4.0-11.0) Red Blood Count 4.69 x10^6/uL (4.30-5.70) Hemoglobin 14.5 g/dL (13.0-17.5) Hematocrit 42.4 % (39.0-53.0) Mean Corpuscular Volume 90 fL (79-100) Mean Corpuscular Hemoglobin 31 pg (25-35) Mean Corpuscular Hemoglobin Concent 34 g/dL (31-37) Red Cell Distribution Width 14.0 % (11.5-14.5) Platelet Count 130 x10^3/uL (140-400) Neutrophils (%) (Auto) 89 % (31-73) Lymphocytes (%) (Auto) 6 % (24-48) Monocytes (%) (Auto) 6 % (0-9) Eosinophils (%) (Auto) 0 % (0-3) Basophils (%) (Auto) 0 % (0-3) Neutrophils # (Auto) 11.5 x10^3/uL (1.8-7.7) Lymphocytes # (Auto) 0.7 x10^3/uL (1.0-4.8) Monocytes # (Auto) 0.7 x10^3/uL (0.0-1.1) Eosinophils # (Auto) 0.0 x10^3/uL (0.0-0.7) Basophils # (Auto) 0.0 x10^3/uL (0.0-0.2) Segmented Neutrophils % 71 % (35-66) Band Neutrophils % 15 % (0-9) Lymphocytes % 9 % (24-48) Monocytes % 5 % (0-10) Platelet Estimate Decreased (ADEQUATE) Sodium Level 149 mmol/L (136-145) Potassium Level 3.6 mmol/L (3.5-5.1) Chloride Level 110 mmol/L (98-107) Carbon Dioxide Level 31 mmol/L (21-32) Anion Gap 8 (6-14) Blood Urea Nitrogen 5 mg/dL (8-26) Creatinine 0.6 mg/dL (0.7-1.3) Estimated GFR (Cockcroft-Gault) 147.8 BUN/Creatinine Ratio 8 (6-20) Glucose Level 124 mg/dL (70-99) Lactic Acid Level 1.8 mmol/L (0.4-2.0) Calcium Level 9.5 mg/dL (8.5-10.1) Total Bilirubin 0.4 mg/dL (0.2-1.0) Aspartate Amino Transf (AST/SGOT) 39 U/L (15-37) Alanine Aminotransferase (ALT/SGPT) 26 U/L (16-63) Alkaline Phosphatase 106 U/L (46-116) Total Protein 7.6 g/dL (6.4-8.2) Albumin 3.3 g/dL (3.4-5.0) Albumin/Globulin Ratio 0.8 (1.0-1.7) O2 Saturation 99 % (92-99) 98 % (92-99) Arterial Blood pH 7.52 (7.35-7.45) 7.46 (7.35-7.45) Arterial Blood pCO2 at Patient Temp 37 mmHg (35-46) 44 mmHg (35-46) Arterial Blood pO2 at Patient Temp 249 mmHg (75-108) 99 mmHg (75-108) Arterial Blood HCO3 30 mmol/L (21-28) 30 mmol/L (21-28) Arterial Blood Base Excess 7 mmol/L (-3-3) 6 mmol/L (-3-3) FiO2 80 40 Triglycerides Level 59 mg/dL (0-150) Cholesterol Level 169 mg/dL (0-200) LDL Cholesterol, Calculated 77 mg/dL (0-100) VLDL Cholesterol, Calculated 12 mg/dL (0-40) Non-HDL Cholesterol Calculated 89 mg/dL (0-129) HDL Cholesterol 80 mg/dL (40-60) Cholesterol/HDL Ratio 2.1 Laboratory Tests Test 03/15/19 06:05 03/15/19 08:00 Triglycerides Level 59 mg/dL (0-150) Cholesterol Level 169 mg/dL (0-200) LDL Cholesterol, Calculated 77 mg/dL (0-100) VLDL Cholesterol, Calculated 12 mg/dL (0-40) Non-HDL Cholesterol Calculated 89 mg/dL (0-129) HDL Cholesterol 80 mg/dL (40-60) Cholesterol/HDL Ratio 2.1 O2 Saturation 98 % (92-99) Arterial Blood pH 7.46 (7.35-7.45) Arterial Blood pCO2 at Patient Temp 44 mmHg (35-46) Arterial Blood pO2 at Patient Temp 99 mmHg (75-108) Arterial Blood HCO3 30 mmol/L (21-28) Arterial Blood Base Excess 6 mmol/L (-3-3) FiO2 40 Medications Active Scripts Medications Dose Route/Sig Max Daily Dose Days Date Category Omeprazole 40 Mg Capsule. 40 Mg PO DAILY 04/30/18 Reported Phenytoin 50 Mg Tab.chew 100 Mg PO QHS 04/30/18 Reported Phenytoin 50 Mg Tab.chew 75 Mg PO DAILY08 04/30/18 Reported Impression . IMPRESSION: 1. Acute respiratory failure, multifactorial. 2. Suspect sepsis. 3. Large left middle cerebral artery infarct, unknown time of onset. 4. Cerebral palsy. 5. Epilepsy by history. 6. Nausea, vomiting, and diarrhea. 7. Possible aspiration pneumonia. Plan . D/W DR WINTER PT TAKEN OFF VENT....HE DOES ASSIST VENT,,,,COUGH AND GAG REFLEX IS PRESENT POSSIBLE COMFORT CARE PT CHANGE OF MEANINGFUL RECOVERY IS NILL SILVERIO IS MEETING WITH FINANCIAL DPOA TODAY ALXE LYONS MD Mar 15, 2019 10:35
--- NOTE | 2019-03-15 11:18 | PDOC ---
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 Medical problems including sepsis syndrome and abdominal process Cerebral palsy history Epilepsy history, on phenytoin, on intravenous phenytoin here. Plan I discussed the very poor prognosis with the patient's Aunt. He does not have a medical power of district attorney, but she agrees with do not resuscitate for which we do not need official medical power of district attorney. I have written do not resuscitate. Await echocardiogram Monitor on full ICU care for another day or 2 and then make decision about extubation. Discussed with Pippa Leyva and Gayla Subjective none Objective Vital Signs Date Time Temp Pulse Resp B/P (MAP) Pulse Ox O2 Delivery O2 Flow Rate FiO2 03/15/19 09:15 98 Ventilator 03/15/19 07:00 70 12 129/82 (98) 03/15/19 04:00 98.9 98.9 Intake and Output 03/15/19 07:00 Intake Total 1872 ml Output Total 2360 ml Balance -488 ml Intake IV Total 1872 ml Output Urine Total 2350 ml Chest Tube Drainage Total 10 ml PHYSICAL EXAM Intubated, no response Pupils very sluggish EOM not elicited. CN: no focal findings. Muscle tone: normal. Muscle strength: no response to pain DTR: 1+ Plantar reflex: silent Gait: not examined Sensory exam: not cooperative. Cerebellar: not cooperative Review of Relevant I have reviewed the following items lucy (where applicable) has been applied. Labs Laboratory Tests Test 03/14/19 07:57 03/14/19 09:00 03/15/19 06:05 03/15/19 08:00 White Blood Count 12.9 x10^3/uL (4.0-11.0) Red Blood Count 4.69 x10^6/uL (4.30-5.70) Hemoglobin 14.5 g/dL (13.0-17.5) Hematocrit 42.4 % (39.0-53.0) Mean Corpuscular Volume 90 fL (79-100) Mean Corpuscular Hemoglobin 31 pg (25-35) Mean Corpuscular Hemoglobin Concent 34 g/dL (31-37) Red Cell Distribution Width 14.0 % (11.5-14.5) Platelet Count 130 x10^3/uL (140-400) Neutrophils (%) (Auto) 89 % (31-73) Lymphocytes (%) (Auto) 6 % (24-48) Monocytes (%) (Auto) 6 % (0-9) Eosinophils (%) (Auto) 0 % (0-3) Basophils (%) (Auto) 0 % (0-3) Neutrophils # (Auto) 11.5 x10^3/uL (1.8-7.7) Lymphocytes # (Auto) 0.7 x10^3/uL (1.0-4.8) Monocytes # (Auto) 0.7 x10^3/uL (0.0-1.1) Eosinophils # (Auto) 0.0 x10^3/uL (0.0-0.7) Basophils # (Auto) 0.0 x10^3/uL (0.0-0.2) Segmented Neutrophils % 71 % (35-66) Band Neutrophils % 15 % (0-9) Lymphocytes % 9 % (24-48) Monocytes % 5 % (0-10) Platelet Estimate Decreased (ADEQUATE) Sodium Level 149 mmol/L (136-145) Potassium Level 3.6 mmol/L (3.5-5.1) Chloride Level 110 mmol/L (98-107) Carbon Dioxide Level 31 mmol/L (21-32) Anion Gap 8 (6-14) Blood Urea Nitrogen 5 mg/dL (8-26) Creatinine 0.6 mg/dL (0.7-1.3) Estimated GFR (Cockcroft-Gault) 147.8 BUN/Creatinine Ratio 8 (6-20) Glucose Level 124 mg/dL (70-99) Lactic Acid Level 1.8 mmol/L (0.4-2.0) Calcium Level 9.5 mg/dL (8.5-10.1) Total Bilirubin 0.4 mg/dL (0.2-1.0) Aspartate Amino Transf (AST/SGOT) 39 U/L (15-37) Alanine Aminotransferase (ALT/SGPT) 26 U/L (16-63) Alkaline Phosphatase 106 U/L (46-116) Total Protein 7.6 g/dL (6.4-8.2) Albumin 3.3 g/dL (3.4-5.0) Albumin/Globulin Ratio 0.8 (1.0-1.7) O2 Saturation 99 % (92-99) 98 % (92-99) Arterial Blood pH 7.52 (7.35-7.45) 7.46 (7.35-7.45) Arterial Blood pCO2 at Patient Temp 37 mmHg (35-46) 44 mmHg (35-46) Arterial Blood pO2 at Patient Temp 249 mmHg (75-108) 99 mmHg (75-108) Arterial Blood HCO3 30 mmol/L (21-28) 30 mmol/L (21-28) Arterial Blood Base Excess 7 mmol/L (-3-3) 6 mmol/L (-3-3) FiO2 80 40 Triglycerides Level 59 mg/dL (0-150) Cholesterol Level 169 mg/dL (0-200) LDL Cholesterol, Calculated 77 mg/dL (0-100) VLDL Cholesterol, Calculated 12 mg/dL (0-40) Non-HDL Cholesterol Calculated 89 mg/dL (0-129) HDL Cholesterol 80 mg/dL (40-60) Cholesterol/HDL Ratio 2.1 Laboratory Tests Test 03/15/19 06:05 03/15/19 08:00 Triglycerides Level 59 mg/dL (0-150) Cholesterol Level 169 mg/dL (0-200) LDL Cholesterol, Calculated 77 mg/dL (0-100) VLDL Cholesterol, Calculated 12 mg/dL (0-40) Non-HDL Cholesterol Calculated 89 mg/dL (0-129) HDL Cholesterol 80 mg/dL (40-60) Cholesterol/HDL Ratio 2.1 O2 Saturation 98 % (92-99) Arterial Blood pH 7.46 (7.35-7.45) Arterial Blood pCO2 at Patient Temp 44 mmHg (35-46) Arterial Blood pO2 at Patient Temp 99 mmHg (75-108) Arterial Blood HCO3 30 mmol/L (21-28) Arterial Blood Base Excess 6 mmol/L (-3-3) FiO2 40 Medications Current Medications Fentanyl Citrate 30 ml @ 0 mls/hr CONT PRN IV SEE PROTOCOL; Start 03/14/19 at 06:30 Propofol 100 ml @ 0 mls/hr CONT PRN IV SEE PROTOCOL; Start 03/14/19 at 06:30 Fentanyl Citrate (Fentanyl 2ml Vial) 25 mcg PRN Q1HR PRN IV SEE COMMENTS; Start 03/14/19 at 06:30 Fentanyl Citrate (Fentanyl 2ml Vial) 50 mcg PRN Q1HR PRN IV SEE COMMENTS; Start 03/14/19 at 06:30 Chlorhexidine Gluconate (Peridex) 15 ml BID MM Last administered on 03/15/19at 10:22; Start 03/14/19 at 09:00 Morphine Sulfate (Morphine Sulfate) 2 mg PRN Q1HR PRN IV SEE COMMENTS.; Start 03/14/19 at 06:30 Morphine Sulfate (Morphine Sulfate) 4 mg PRN Q1HR PRN IV SEE COMMENTS.; Start 03/14/19 at 06:30 Ceftriaxone Sodium (Rocephin) 1 gm Q24H IVP Last administered on 03/14/19at 11:43; Start 03/14/19 at 11:00 Metronidazole 100 ml @ 100 mls/hr Q8HRS IV Last administered on 03/15/19 06:01; Start 03/14/19 at 09:00 Fosphenytoin Sodium (Cerebyx) 100 mg Q8HRS IV Last administered on 03/15/19 06:00; Start 03/14/19 at 09:00 Pantoprazole Sodium (PROTONIX VIAL for IV PUSH) 40 mg BID IVP Last administered on 03/15/19 10:22; Start 03/14/19 at 09:00 Amino Acids/ Glycerin/ Electrolytes 1,000 ml @ 80 mls/hr [id number] IV Last administered on 03/15/19 10:22; Start 03/14/19 at 08:45 Acetaminophen (Tylenol) 650 mg PRN Q6HRS PRN PO TEMP > 100.4F; Start 03/14/19 at 08:45 Acetaminophen (Tylenol Supp) 650 mg PRN Q4HRS PRN IN TEMP > 100.4F Last administered on 03/14/19at 21:48; Start 03/14/19 at 08:45 Aspirin (Ecotrin) 325 mg [id number] PO Last administered on 03/14/19at 09:14; Start 03/14/19 at 08:00; Stop 03/14/19 at 19:56; Status DC Aspirin (Aspirin Rectal Supp) 300 mg PRN DAILY PRN IN IF UNABLE TO TAKE PO; Start 03/14/19 at 08:45; Stop 03/14/19 at 19:56; Status DC Active Scripts Active Reported Phenytoin 50 Mg Tab.chew 75 Mg PO NOON Omeprazole 40 Mg Capsule.dr 40 Mg PO DAILY Phenytoin 50 Mg Tab.chew 100 Mg PO QHS Phenytoin 50 Mg Tab.chew 50 Mg PO DAILY08 Vitals/I & O Vital Sign - Last 24 Hours 03/14/19 03/14/19 03/14/19 03/14/19 12:00 12:00 13:10 14:00 Temp 100.2 100.2 Pulse 82 74 Resp 16 12 B/P (MAP) 99/68 (78) 119/72 (88) Pulse Ox 98 95 100 O2 Delivery Ventilator Mechanical Ventilator Ventilator Ventilator 03/14/19 03/14/19 03/14/19 03/14/19 15:00 15:42 16:00 16:00 Temp 100.7 100.7 Pulse 74 82 Resp 12 14 B/P (MAP) 119/71 (87) 111/68 (82) Pulse Ox 99 98 97 O2 Delivery Ventilator Ventilator Mechanical Ventilator Ventilator 03/14/19 03/14/19 03/14/19 03/14/19 17:00 17:35 18:00 19:00 Pulse 88 89 90 Resp 14 15 12 B/P (MAP) 113/69 (84) 123/70 (87) 124/69 (87) Pulse Ox 98 98 98 98 O2 Delivery Ventilator Ventilator Ventilator Ventilator 03/14/19 03/14/19 03/14/19 03/14/19 19:26 20:00 20:00 21:00 Temp 102.8 102.8 Pulse 92 94 Resp 12 12 B/P (MAP) 115/68 (84) 109/67 (81) Pulse Ox 98 97 97 O2 Delivery Ventilator Mechanical Ventilator Ventilator Ventilator 03/14/19 03/14/19 03/14/19 03/14/19 21:08 22:00 23:00 23:30 Pulse 86 82 Resp 12 12 B/P (MAP) 109/64 (79) 107/66 (80) Pulse Ox 98 97 97 97 O2 Delivery Ventilator Ventilator Ventilator Ventilator 03/14/19 03/15/19 03/15/19 03/15/19 23:59 00:01 01:00 01:39 Temp 99.5 99.5 Pulse 89 75 Resp 12 12 B/P (MAP) 109/66 (80) 121/70 (87) Pulse Ox 97 98 98 O2 Delivery Mechanical Ventilator Ventilator Ventilator Ventilator 03/15/19 03/15/19 03/15/19 03/15/19 02:00 02:51 03:00 04:00 Temp 98.9 98.9 Pulse 72 75 71 Resp 12 12 12 B/P (MAP) 121/73 (89) 121/79 (93) 123/75 (91) Pulse Ox 98 98 98 97 O2 Delivery Ventilator Ventilator Ventilator Ventilator 03/15/19 03/15/19 03/15/19 03/15/19 04:00 05:00 05:18 06:00 Pulse 72 78 Resp 12 12 B/P (MAP) 137/89 (105) 124/81 (95) Pulse Ox 97 98 98 O2 Delivery Mechanical Ventilator Ventilator Ventilator Ventilator 03/15/19 03/15/19 03/15/19 07:00 07:56 09:15 Pulse 70 Resp 12 B/P (MAP) 129/82 (98) Pulse Ox 99 98 98 O2 Delivery Ventilator Ventilator Ventilator Intake and Output 03/14/19 03/14/19 03/15/19 15:00 23:00 07:00 Intake Total 111 ml 773 ml 988 ml Output Total 600 ml 1085 ml 675 ml Balance -489 ml -312 ml 313 ml Images MRI Brain without contrast History: CVA Technique: Multiplanar, multisequential noncontrast MR imaging was performed of the brain. Comparison: There is no previous MRI exam available, correlation made to 03/14/2019 and August 11, [address] exams Findings: There is very large area of restricted diffusion of the left cerebral hemisphere greatest of the temporal occipital lobes extending to the parasagittal parietal lobe with separate small focus of the left frontal cortex also foci of the left thalamus and basal ganglia. There is also restricted diffusion involving the right temporal lobe greater medially. There is left uncal herniation. There is degree of herniation of the medial left temporal lobe inferior to the tentorium by about 2 cm. There is also lesser degree of inferior herniation of the right temporal parenchyma estimated about 1 cm. There is also degree of diffusion signal abnormality of the distorted brainstem and martín, also seen T2 and FLAIR hyperintense signal. There is associated variable acute parenchymal hemorrhage of the left temporal lobe extending to the cortical surface, hypointense on the T2 sequence and mostly isointense on T1 sequence with associated prominent decreased signal on gradient echo sequence. This also involves the inferiorly herniated portion of the left temporal lobe. There is also focus of parenchymal hemorrhage of the medial right temporal lobe site of restricted diffusion, also hypointense on T2 sequence, isointense very slightly hyperintense on T1 sequence and associated decreased signal greatest of sequence adjacent vasogenic edema or defined by T2 and FLAIR hyperintense signal. Right temporal horn is dilated, effacement of the left temporal horn. There is mild intraventricular hemorrhage in the left occipital horn. There is again lateral ventriculomegaly although findings present on older head CT exam. There is again more focal volume loss extending to the cortical surface of the left frontal lobe. There is fairly diffuse dysplastic appearance of the brain parenchyma other than sparing of the frontal lobes and segments of the left temporal lobe. There is visualization of the internal carotid arteries otherwise bilaterally at the skull base although intradural vertebral artery flow void not well- visualized on either side. Basilar artery flow-void is visualized. Small focus of signal change of the right martín is likely sequela of old lacunar infarct, also small focus along the margin of left lateral ventricle. Some mild increased FLAIR signal in the region of sylvian fissures bilaterally concerning for subarachnoid hemorrhage. Fourth ventricle is effaced greater inferiorly. Cerebellar tonsils are at the lower limits of normal. Impression: 1. There are large areas of restricted diffusion bilaterally greater on the left, evidence of recent acute/early subacute infarcts with areas of acute parenchymal hemorrhage and also mild intraventricular hemorrhage, also probable degree of subarachnoid hemorrhage. There is degree of inferior herniation of the hemorrhagic medial left temporal lobe below the tentorium by about 2 cm, to lesser degree on the right. There is left uncal herniation. There is distortion of the brainstem and superior martín. There is also diffusion signal abnormality of the brainstem likely component of ischemia and edema. Cerebellar tonsils at the lower limits of normal, effacement of the fourth ventricle greater i nferiorly. 2. Intradural vertebral artery flow voids are not well visualized on either side on this exam although visualization of the basilar artery flow-void. 3. 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 4. There is again lateral ventriculomegaly although more chronic appearance. There is effacement of the left temporal horn, dilatation of the right temporal horn. ROBBY SOLORZANO MD Mar 15, 2019 11:18
--- NOTE | 2019-03-15 11:19 | PDOC2 ---
PALLIATIVE CARE Palliative Care Note Palliative Care Patient remains on vent. overbreathing the vent. No response to verbal stimuli. +gag reflex. Met with patient's Aunt Lynette and Marcia Power System Dispatcher of [facility] where patient lives. Patient has 3 uncles and 3 aunts not involved in his care or decisions. Mother . Grandmother who was primary senior clinical data analyst . Unknown father. Dr. Leal spoke with Lynette. Reviewed medical condition. Her understanding: Severe stroke --bleed--on both sides of his brain. Plan review again in 2-3 days. Plan echo to r/o bloods clots. Lynette describes patient has usually "happy, could feed himself, loves his toys, could transfer self but not walk" "Mental age of 2-3 year old " [address] Leal will meet again per family in 2-3 days. Lynette is patient's Financial Power of Studio Owner. No guardian or power of associate attorney for health care decisions. Code Status; DNR. SILVERIO HARPER Mar 15, 2019 11:19
[2019-03-15] MEDS: cefTRIAXone IV Push 1 GM VIAL. IVP SCH (12:28)
[2019-03-15 17:24] LABS: BASO % 0 % (0-3); EOS % 0 % (0-3); HEMATOCRIT 42.7 % (39.0-53.0); HEMOGLOBIN 14.2 g/dL (13.0-17.5); LYMPH # 1.7 x10^3/uL (1.0-4.8); LYMPH % 14 % (24-48); MEAN CORPUSCULAR HEMOGLOBIN 30 pg (25-35); MEAN CORPUSCULAR HGB CONC 33 g/dL (31-37); MEAN CORPUSCULAR VOLUME 91 fL (79-100); MONO % 8 % (0-9); NEUT # 9.5 x10^3/uL (1.8-7.7); NEUT % 78 % (31-73); PLATELET COUNT 139 x10^3/uL (140-400); RED BLOOD COUNT 4.71 x10^6/uL (4.30-5.70); RED CELL DISTRIBUTION WIDTH 14.7 % (11.5-14.5); WHITE BLOOD COUNT 12.2 x10^3/uL (4.0-11.0)
[2019-03-15 17:37] LABS: CALCIUM 9.7 mg/dL (8.5-10.1); CREATININE 0.8 mg/dL (0.7-1.3); POTASSIUM 3.9 mmol/L (3.5-5.1)
[2019-03-15] MEDS: PIPERACILLIN/TAZOBACTAM 3.375 GM in IV NORMAL SALINE 50ML 50 ML IV SCH (18:48)
[2019-03-15] MEDS: ACETAMINOPHEN 650 MG SUPP.RECT. PR PRN (18:50)
[2019-03-15] MEDS ORDERED: VANCOMYCIN 1 GM in IV NORMAL SALINE 250ML 250 ML IV ONE (19:00)
[2019-03-15] MEDS ORDERED: CONTRAST GIVEN. MC PRN (21:00)
[2019-03-15] MEDS ORDERED: VANCOMYCIN 1 GM in IV NORMAL SALINE 250ML 250 ML IV SCH (21:00)
[2019-03-16] VITALS (25 sets, daily range): BP systolic 99–204; BP diastolic 71–136
[2019-03-16] MEDS: PIPERACILLIN/TAZOBACTAM 3.375 GM in IV NORMAL SALINE 50ML 50 ML IV SCH ×4 (00:40→16:56)
[2019-03-16] MEDS: VANCOMYCIN PER PHARMACY MC PRN ×2 (00:58→09:00)
--- NOTE | 2019-03-16 00:59 | NUR ---
Pharmacy Vancomycin Dosing Note S:Consulted to monitor and dose vancomycin started 03/15/19. O:FILES,JEANIE is a 44 year old M with Sepsis . Height: 4 feet, 8 inches Weight: 43.630778 kg Fraser Body Weight: 40.80 Adjusted Body Weight: 41.96 Dosing Weight: Actual Other Antibiotics: ZOSYN FLAGYL LABS: Last BUN: 12 Last Creatinine: 0.8 Creatinine Clearance: 74 mL/min Last WBC: 12.2 Last Procalcitonin: Tmax (past 24 hours): Microbiology: I/O: Drug Levels: Last level: on at Last dose given 03/15/19 at 2100 Vancomycin Dosing: Loading Dose: 1000 mg x1 Dosing Weight: Actual Target Trough: 15-20 A: Based on: WT AND CRCL P: 1. Begin Vancomycin 750 mg IV q12h 2. Follow up Trough level on 03/17/19 at 0830 3. Pharmacy will continue to monitor, follow and adjust therapy as needed. HANK MANZANARES RPH, 03/16/19 0059 Signed: 03/16/19 at 58 by HANK MANZANARES RPH PHA
[2019-03-16] MEDS: FOSPHENYTOIN 100 MG/2 ML VIAL. IV SCH ×2 (06:15→15:23)
[2019-03-16 07:18] LABS: BASE EXCESS ABG 6 mmol/L (-3-3); HCO3 ABG 32 mmol/L (21-28); PCO2 ABG 49 mmHg (35-46); PO2 ABG 108 mmHg (75-108); SAT O2 ABG 98 % (92-99)
[2019-03-16 08:03] LABS: CREATININE 0.6 mg/dL (0.7-1.3); GFR 147.8
--- NOTE | 2019-03-16 08:21 | NUR ---
SS following up with discharge planning. Pt remains on the vent at this time. Palliative Care consulted for goals of care. SS will continue to follow for discharge planning.
[2019-03-16 08:25] LABS: FIO2 ABG 35
--- NOTE | 2019-03-16 08:37 | CARD ---
MR#: [id number] Date of Study: 03/15/2019 Ordering Physician: ROBBY SOLORZANO, Referring Physician: ROBBY SOLORZANO, Tech: Silvana Agosto APPROVED REPORT EXAM: Two-dimensional and M-mode echocardiogram with Doppler and color Doppler. Other Information Quality : FairHR: 109bpm Technically limited study due to Rapid heart rate INDICATION CVA/TIA Echo Enhancing Agent Indication: Rule Out Septal Defect Agent/Amount Used: Agitated Saline 20mL 2D DIMENSIONS IVSd0.9 (0.7-1.1cm)LVDd2.9 (3.9-5.9cm) PWd1.2 (0.7-1.1cm)LVDs1.8 (2.5-4.0cm) LEFT VENTRICLE Not well visualized. Grossly normal LV function. EF 50% RIGHT VENTRICLE RV not well visualized. ATRIA Atria not well visualized. AORTIC VALVE The aortic valve is not well visualized. MITRAL VALVE Not well visualized. TRICUSPID VALVE The tricuspid valve is not well visualized. PULMONIC VALVE The pulmonic valve is not visualized. GREAT VESSELS The aortic root is not well visualized. PERICARDIAL EFFUSION No significant pericardial effusion Critical Notification Critical Value: No <Conclusion> Grossly normal LV function. EF 50% Essentially non-diagnostic surface echo, if clinical inidication present, consider ALDO. Technically very difficult study Signed by : Gulshan Cobian, Electronically Approved : 03/16/2019 08:37:02
--- NOTE | 2019-03-16 09:16 | NUR ---
Apnea Test Result: Patient makes weak respiratory effort, at a rate of 60/minute. ABG shows uncompensated increase in hypercapnia.
[2019-03-16 09:31] LABS: BASE EXCESS ABG 4 mmol/L (-3-3); HCO3 ABG 39 mmol/L (21-28); PO2 ABG > 503 mmHg (75-108); SAT O2 ABG 100 % (92-99)
[2019-03-16 09:33] LABS: PCO2 ABG 126 mmHg (35-46)
[2019-03-16 09:34] LABS: FIO2 ABG 100
--- NOTE | 2019-03-16 09:45 | PDOC ---
PULMONARY PROGRESS NOTES Subjective ON VENT AC MODE Vitals Vital Signs Date Time Temp Pulse Resp B/P (MAP) Pulse Ox O2 Delivery O2 Flow Rate FiO2 03/16/19 09:10 100 03/16/19 09:00 63 60 204/136 (158) Ventilator 03/16/19 07:00 98.3 98.3 Lungs: Clear Cardiovascular: S1, S2 Abdomen: Soft Extremities: Other (NO CHANGE) Labs Laboratory Tests Test 03/15/19 06:05 03/15/19 08:00 03/15/19 17:00 03/16/19 07:00 Triglycerides Level 59 mg/dL (0-150) Cholesterol Level 169 mg/dL (0-200) LDL Cholesterol, Calculated 77 mg/dL (0-100) VLDL Cholesterol, Calculated 12 mg/dL (0-40) Non-HDL Cholesterol Calculated 89 mg/dL (0-129) HDL Cholesterol 80 mg/dL (40-60) Cholesterol/HDL Ratio 2.1 O2 Saturation 98 % (92-99) 98 % (92-99) Arterial Blood pH 7.46 (7.35-7.45) 7.43 (7.35-7.45) Arterial Blood pCO2 at Patient Temp 44 mmHg (35-46) 49 mmHg (35-46) Arterial Blood pO2 at Patient Temp 99 mmHg (75-108) 108 mmHg (75-108) Arterial Blood HCO3 30 mmol/L (21-28) 32 mmol/L (21-28) Arterial Blood Base Excess 6 mmol/L (-3-3) 6 mmol/L (-3-3) FiO2 40 35 White Blood Count 12.2 x10^3/uL (4.0-11.0) Red Blood Count 4.71 x10^6/uL (4.30-5.70) Hemoglobin 14.2 g/dL (13.0-17.5) Hematocrit 42.7 % (39.0-53.0) Mean Corpuscular Volume 91 fL (79-100) Mean Corpuscular Hemoglobin 30 pg (25-35) Mean Corpuscular Hemoglobin Concent 33 g/dL (31-37) Red Cell Distribution Width 14.7 % (11.5-14.5) Platelet Count 139 x10^3/uL (140-400) Neutrophils (%) (Auto) 78 % (31-73) Lymphocytes (%) (Auto) 14 % (24-48) Monocytes (%) (Auto) 8 % (0-9) Eosinophils (%) (Auto) 0 % (0-3) Basophils (%) (Auto) 0 % (0-3) Neutrophils # (Auto) 9.5 x10^3/uL (1.8-7.7) Lymphocytes # (Auto) 1.7 x10^3/uL (1.0-4.8) Monocytes # (Auto) 1.0 x10^3/uL (0.0-1.1) Eosinophils # (Auto) 0.0 x10^3/uL (0.0-0.7) Basophils # (Auto) 0.0 x10^3/uL (0.0-0.2) Sodium Level 154 mmol/L (136-145) Potassium Level 3.9 mmol/L (3.5-5.1) Chloride Level 114 mmol/L (98-107) Carbon Dioxide Level 34 mmol/L (21-32) Anion Gap 6 (6-14) Blood Urea Nitrogen 12 mg/dL (8-26) Creatinine 0.8 mg/dL (0.7-1.3) Estimated GFR (Cockcroft-Gault) 106.0 Glucose Level 153 mg/dL (70-99) Lactic Acid Level 1.7 mmol/L (0.4-2.0) Calcium Level 9.7 mg/dL (8.5-10.1) Test 03/16/19 07:45 03/16/19 09:15 Creatinine 0.6 mg/dL (0.7-1.3) Estimated GFR (Cockcroft-Gault) 147.8 O2 Saturation 100 % (92-99) Arterial Blood pH 7.10 (7.35-7.45) Arterial Blood pCO2 at Patient Temp 126 mmHg (35-46) Arterial Blood pO2 at Patient Temp > 503 mmHg (75-108) Arterial Blood HCO3 39 mmol/L (21-28) Arterial Blood Base Excess 4 mmol/L (-3-3) FiO2 100 Laboratory Tests Test 03/15/19 17:00 03/16/19 07:00 03/16/19 07:45 03/16/19 09:15 White Blood Count 12.2 x10^3/uL (4.0-11.0) Red Blood Count 4.71 x10^6/uL (4.30-5.70) Hemoglobin 14.2 g/dL (13.0-17.5) Hematocrit 42.7 % (39.0-53.0) Mean Corpuscular Volume 91 fL (79-100) Mean Corpuscular Hemoglobin 30 pg (25-35) Mean Corpuscular Hemoglobin Concent 33 g/dL (31-37) Red Cell Distribution Width 14.7 % (11.5-14.5) Platelet Count 139 x10^3/uL (140-400) Neutrophils (%) (Auto) 78 % (31-73) Lymphocytes (%) (Auto) 14 % (24-48) Monocytes (%) (Auto) 8 % (0-9) Eosinophils (%) (Auto) 0 % (0-3) Basophils (%) (Auto) 0 % (0-3) Neutrophils # (Auto) 9.5 x10^3/uL (1.8-7.7) Lymphocytes # (Auto) 1.7 x10^3/uL (1.0-4.8) Monocytes # (Auto) 1.0 x10^3/uL (0.0-1.1) Eosinophils # (Auto) 0.0 x10^3/uL (0.0-0.7) Basophils # (Auto) 0.0 x10^3/uL (0.0-0.2) Sodium Level 154 mmol/L (136-145) Potassium Level 3.9 mmol/L (3.5-5.1) Chloride Level 114 mmol/L (98-107) Carbon Dioxide Level 34 mmol/L (21-32) Anion Gap 6 (6-14) Blood Urea Nitrogen 12 mg/dL (8-26) Creatinine 0.8 mg/dL (0.7-1.3) 0.6 mg/dL (0.7-1.3) Estimated GFR (Cockcroft-Gault) 106.0 147.8 Glucose Level 153 mg/dL (70-99) Lactic Acid Level 1.7 mmol/L (0.4-2.0) Calcium Level 9.7 mg/dL (8.5-10.1) O2 Saturation 98 % (92-99) 100 % (92-99) Arterial Blood pH 7.43 (7.35-7.45) 7.10 (7.35-7.45) Arterial Blood pCO2 at Patient Temp 49 mmHg (35-46) 126 mmHg (35-46) Arterial Blood pO2 at Patient Temp 108 mmHg (75-108) > 503 mmHg (75-108) Arterial Blood HCO3 32 mmol/L (21-28) 39 mmol/L (21-28) Arterial Blood Base Excess 6 mmol/L (-3-3) 4 mmol/L (-3-3) FiO2 35 100 Medications Active Scripts Medications Dose Route/Sig Max Daily Dose Days Date Category Omeprazole 40 Mg Capsule.dr 40 Mg PO DAILY 04/30/18 Reported Phenytoin 50 Mg Tab.chew 100 Mg PO QHS 04/30/18 Reported Phenytoin 50 Mg Tab.chew 75 Mg PO DAILY08 04/30/18 Reported Impression . IMPRESSION: 1. Acute respiratory failure, multifactorial. 2. Suspect sepsis. 3. Large left middle cerebral artery infarct, unknown time of onset. 4. Cerebral palsy. 5. Epilepsy by history. 6. Nausea, vomiting, and diarrhea. 7. Possible aspiration pneumonia. MRI BRAIN Impression: 1. There are large areas of restricted diffusion bilaterally greater on the left, evidence of recent acute/early subacute infarcts with areas of acute parenchymal hemorrhage and also mild intraventricular hemorrhage, also probable degree of subarachnoid hemorrhage. There is degree of inferior herniation of the hemorrhagic medial left temporal lobe below the tentorium by about 2 cm, to lesser degree on the right. There is left uncal herniation. There is distortion of the brainstem and superior martín. There is also diffusion signal abnormality of the brainstem likely component of ischemia and edema. Cerebellar tonsils at the lower limits of normal, effacement of the fourth ventricle greater inferiorly. 2. Intradural vertebral artery flow voids are not well visualized on either side on this exam although visualization of the basilar artery flow-void. 3. 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 4. There is again lateral ventriculomegaly although more chronic appearance. There is effacement of the left temporal horn, dilatation of the right temporal horn. Plan . D/W DR WINTER AND SILVERIO FROM PALLIATIVE CARE I RECOMMEND WITHDRAWAL OF CARE AND ALLOW NATURAL D/W FAMILY MEMBER AWATING OTHER FAMILY MEMBER TO ARRIVE PRIOR TO POSSIBLY D/C SUPPORT ALEX LYONS MD Mar 16, 2019 09:45
--- NOTE | 2019-03-16 10:00 | PDOC ---
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 Medical problems including sepsis syndrome and abdominal process Cerebral palsy history Epilepsy history, on phenytoin, on intravenous phenytoin here. Not brain Plan DNR I discussed the very poor prognosis with the patient's Aunt. Her sister is driving down from [place], they will make decision about extubation. Subjective none Objective Vital Signs Date Time Temp Pulse Resp B/P (MAP) Pulse Ox O2 Delivery O2 Flow Rate FiO2 03/16/19 09:10 100 03/16/19 09:00 63 60 204/136 (158) Ventilator 03/16/19 07:00 98.3 98.3 Intake and Output 03/16/19 07:00 Intake Total 1889 ml Output Total 2829 ml Balance -940 ml Intake IV Total 1889 ml Output Urine Total 2355 ml Gastric Drainage Total 450 ml Chest Tube Drainage Total 24 ml PHYSICAL EXAM Intubated, no response Note apnea test results, he does have spontaneous respirations, terrible bloodgas. Pupils nonreactive to bright light. Corneal reflex absent. Oculocephalic reflex absent Oculovestibular reflex absent. No facial movement to noxious stimuli at supraorbital nerve, temporomandibular j oint Gag reflex absent. Cough reflex absent to tracheal suctioning. Absence of motor response to noxious stimuli in all four limbs Review of Relevant I have reviewed the following items lucy (where applicable) has been applied. Labs Laboratory Tests Test 03/15/19 06:05 03/15/19 08:00 03/15/19 17:00 03/16/19 07:00 Triglycerides Level 59 mg/dL (0-150) Cholesterol Level 169 mg/dL (0-200) LDL Cholesterol, Calculated 77 mg/dL (0-100) VLDL Cholesterol, Calculated 12 mg/dL (0-40) Non-HDL Cholesterol Calculated 89 mg/dL (0-129) HDL Cholesterol 80 mg/dL (40-60) Cholesterol/HDL Ratio 2.1 O2 Saturation 98 % (92-99) 98 % (92-99) Arterial Blood pH 7.46 (7.35-7.45) 7.43 (7.35-7.45) Arterial Blood pCO2 at Patient Temp 44 mmHg (35-46) 49 mmHg (35-46) Arterial Blood pO2 at Patient Temp 99 mmHg (75-108) 108 mmHg (75-108) Arterial Blood HCO3 30 mmol/L (21-28) 32 mmol/L (21-28) Arterial Blood Base Excess 6 mmol/L (-3-3) 6 mmol/L (-3-3) FiO2 40 35 White Blood Count 12.2 x10^3/uL (4.0-11.0) Red Blood Count 4.71 x10^6/uL (4.30-5.70) Hemoglobin 14.2 g/dL (13.0-17.5) Hematocrit 42.7 % (39.0-53.0) Mean Corpuscular Volume 91 fL (79-100) Mean Corpuscular Hemoglobin 30 pg (25-35) Mean Corpuscular Hemoglobin Concent 33 g/dL (31-37) Red Cell Distribution Width 14.7 % (11.5-14.5) Platelet Count 139 x10^3/uL (140-400) Neutrophils (%) (Auto) 78 % (31-73) Lymphocytes (%) (Auto) 14 % (24-48) Monocytes (%) (Auto) 8 % (0-9) Eosinophils (%) (Auto) 0 % (0-3) Basophils (%) (Auto) 0 % (0-3) Neutrophils # (Auto) 9.5 x10^3/uL (1.8-7.7) Lymphocytes # (Auto) 1.7 x10^3/uL (1.0-4.8) Monocytes # (Auto) 1.0 x10^3/uL (0.0-1.1) Eosinophils # (Auto) 0.0 x10^3/uL (0.0-0.7) Basophils # (Auto) 0.0 x10^3/uL (0.0-0.2) Sodium Level 154 mmol/L (136-145) Potassium Level 3.9 mmol/L (3.5-5.1) Chloride Level 114 mmol/L (98-107) Carbon Dioxide Level 34 mmol/L (21-32) Anion Gap 6 (6-14) Blood Urea Nitrogen 12 mg/dL (8-26) Creatinine 0.8 mg/dL (0.7-1.3) Estimated GFR (Cockcroft-Gault) 106.0 Glucose Level 153 mg/dL (70-99) Lactic Acid Level 1.7 mmol/L (0.4-2.0) Calcium Level 9.7 mg/dL (8.5-10.1) Test 03/16/19 07:45 03/16/19 09:15 Creatinine 0.6 mg/dL (0.7-1.3) Estimated GFR (Cockcroft-Gault) 147.8 O2 Saturation 100 % (92-99) Arterial Blood pH 7.10 (7.35-7.45) Arterial Blood pCO2 at Patient Temp 126 mmHg (35-46) Arterial Blood pO2 at Patient Temp > 503 mmHg (75-108) Arterial Blood HCO3 39 mmol/L (21-28) Arterial Blood Base Excess 4 mmol/L (-3-3) FiO2 100 Laboratory Tests Test 03/15/19 17:00 03/16/19 07:00 03/16/19 07:45 03/16/19 09:15 White Blood Count 12.2 x10^3/uL (4.0-11.0) Red Blood Count 4.71 x10^6/uL (4.30-5.70) Hemoglobin 14.2 g/dL (13.0-17.5) Hematocrit 42.7 % (39.0-53.0) Mean Corpuscular Volume 91 fL (79-100) Mean Corpuscular Hemoglobin 30 pg (25-35) Mean Corpuscular Hemoglobin Concent 33 g/dL (31-37) Red Cell Distribution Width 14.7 % (11.5-14.5) Platelet Count 139 x10^3/uL (140-400) Neutrophils (%) (Auto) 78 % (31-73) Lymphocytes (%) (Auto) 14 % (24-48) Monocytes (%) (Auto) 8 % (0-9) Eosinophils (%) (Auto) 0 % (0-3) Basophils (%) (Auto) 0 % (0-3) Neutrophils # (Auto) 9.5 x10^3/uL (1.8-7.7) Lymphocytes # (Auto) 1.7 x10^3/uL (1.0-4.8) Monocytes # (Auto) 1.0 x10^3/uL (0.0-1.1) Eosinophils # (Auto) 0.0 x10^3/uL (0.0-0.7) Basophils # (Auto) 0.0 x10^3/uL (0.0-0.2) Sodium Level 154 mmol/L (136-145) Potassium Level 3.9 mmol/L (3.5-5.1) Chloride Level 114 mmol/L (98-107) Carbon Dioxide Level 34 mmol/L (21-32) Anion Gap 6 (6-14) Blood Urea Nitrogen 12 mg/dL (8-26) Creatinine 0.8 mg/dL (0.7-1.3) 0.6 mg/dL (0.7-1.3) Estimated GFR (Cockcroft-Gault) 106.0 147.8 Glucose Level 153 mg/dL (70-99) Lactic Acid Level 1.7 mmol/L (0.4-2.0) Calcium Level 9.7 mg/dL (8.5-10.1) O2 Saturation 98 % (92-99) 100 % (92-99) Arterial Blood pH 7.43 (7.35-7.45) 7.10 (7.35-7.45) Arterial Blood pCO2 at Patient Temp 49 mmHg (35-46) 126 mmHg (35-46) Arterial Blood pO2 at Patient Temp 108 mmHg (75-108) > 503 mmHg (75-108) Arterial Blood HCO3 32 mmol/L (21-28) 39 mmol/L (21-28) Arterial Blood Base Excess 6 mmol/L (-3-3) 4 mmol/L (-3-3) FiO2 35 100 Medications Current Medications Fentanyl Citrate 30 ml @ 0 mls/hr CONT PRN IV SEE PROTOCOL; Start 03/14/19 at 06:30 Propofol 100 ml @ 0 mls/hr CONT PRN IV SEE PROTOCOL; Start 03/14/19 at 06:30 Fentanyl Citrate (Fentanyl 2ml Vial) 25 mcg PRN Q1HR PRN IV SEE COMMENTS; Start 03/14/19 at 06:30 Fentanyl Citrate (Fentanyl 2ml Vial) 50 mcg PRN Q1HR PRN IV SEE COMMENTS; Start 03/14/19 at 06:30 Chlorhexidine Gluconate (Peridex) 15 ml BID MM Last administered on 03/15/19at 21:13; Start 03/14/19 at 09:00 Morphine Sulfate (Morphine Sulfate) 2 mg PRN Q1HR PRN IV SEE COMMENTS.; Start 03/14/19 at 06:30 Morphine Sulfate (Morphine Sulfate) 4 mg PRN Q1HR PRN IV SEE COMMENTS.; Start 03/14/19 at 06:30 Ceftriaxone Sodium (Rocephin) 1 gm Q24H IVP Last administered on 03/15/19at 12:28; Start 03/14/19 at 11:00; Stop 03/15/19 at 18:24; Status DC Metronidazole 100 ml @ 100 mls/hr Q8HRS IV Last administered on 03/15/19at 14:16; Start 03/14/19 at 09:00; Stop 03/15/19 at 18:24; Status DC Fosphenytoin Sodium (Cerebyx) 100 mg Q8HRS IV Last administered on 03/16/19at 06:15; Start 03/14/19 at 09:00 Pantoprazole Sodium (PROTONIX VIAL for IV PUSH) 40 mg BID IVP Last administered on 03/15/19at 21:13; Start 03/14/19 at 09:00 Amino Acids/ Glycerin/ Electrolytes 1,000 ml @ 80 mls/hr [id number] IV Last administered on 03/15/19at 22:15; Start 03/14/19 at 08:45 Acetaminophen (Tylenol) 650 mg PRN Q6HRS PRN PO TEMP > 100.4F; Start 03/14/19 at 08:45 Acetaminophen (Tylenol Supp) 650 mg PRN Q4HRS PRN IN TEMP > 100.4F Last administered on 03/15/19at 18:50; Start 03/14/19 at 08:45 Aspirin (Ecotrin) 325 mg [id number] PO Last administered on 03/14/19at 09:14; Start 03/14/19 at 08:00; Stop 03/14/19 at 19:56; Status DC Aspirin (Aspirin Rectal Supp) 300 mg PRN DAILY PRN IN IF UNABLE TO TAKE PO; Start 03/14/19 at 08:45; Stop 03/14/19 at 19:56; Status DC Piperacillin Sod/ Tazobactam Sod 3.375 gm/Sodium Chloride 50 ml @ 100 mls/hr Q6HRS IV Last administered on 03/16/19at 06:15; Start 03/15/19 at 19:00 Vancomycin HCl 1 gm/Sodium Chloride 250 ml @ 250 mls/hr BID IV ; Start 03/15/19 at 21:00; Status UNV Vancomycin HCl (Vanco Per Pharmacy) 1 each PRN DAILY PRN MC SEE COMMENTS Last administered on 03/16/19at 09:00; Start 03/15/19 at 18:30 Vancomycin HCl 1 gm/Sodium Chloride 250 ml @ 250 mls/hr ONCE ONCE IV Last administered on 03/15/19at 21:12; Start 03/15/19 at 19:00; Stop 03/15/19 at 19:59; Status DC Info (CONTRAST GIVEN -- Rx MONITORING) 1 each PRN DAILY PRN MC SEE COMMENTS; Start 03/15/19 at 21:00; Stop 03/17/19 at 20:59; Status Cancel Vancomycin HCl 750 mg/Sodium Chloride 250 ml @ 250 mls/hr Q12H IV ; Start 03/16/19 at 09:00 Vancomycin HCl (Vancomycin Trough Level) 1 each 1X ONCE MC ; Start 03/17/19 at 08:30; Stop 03/17/19 at 08:31 Active Scripts Active Reported Phenytoin 50 Mg Tab.chew 75 Mg PO NOON Omeprazole 40 Mg Capsule.dr 40 Mg PO DAILY Phenytoin 50 Mg Tab.chew 100 Mg PO QHS Phenytoin 50 Mg Tab.chew 50 Mg PO DAILY08 Vitals/I & O Vital Sign - Last 24 Hours 03/15/19 03/15/19 03/15/19 03/15/19 10:00 11:00 12:00 12:00 Temp 101.4 101.4 Pulse 84 92 96 Resp 12 12 B/P (MAP) 133/88 (103) 114/83 (93) 115/84 (94) Pulse Ox 97 99 97 O2 Delivery Ventilator Ventilator Ventilator Mechanical Ventilator 03/15/19 03/15/19 03/15/19 03/15/19 12:08 13:00 14:00 14:04 Pulse 98 98 B/P (MAP) 115/80 (92) 119/72 (88) Pulse Ox 96 98 94 95 O2 Delivery Ventilator Ventilator Ventilator Ventilator 03/15/19 03/15/19 03/15/19 03/15/19 15:00 15:43 16:00 16:00 Temp 103.2 103.2 Pulse 100 107 B/P (MAP) 122/73 (89) 119/72 (88) Pulse Ox 94 98 92 O2 Delivery Ventilator Ventilator Ventilator Mechanical Ventilator 03/15/19 03/15/19 03/15/19 03/15/19 17:00 18:00 18:03 19:00 Temp 102.9 102.9 Pulse 109 108 106 Resp 12 12 12 B/P (MAP) 123/88 (100) 119/87 (98) 122/88 (99) Pulse Ox 94 94 95 96 O2 Delivery Ventilator Ventilator Ventilator Ventilator 03/15/19 03/15/19 03/15/19 03/15/19 19:43 20:00 20:00 21:00 Pulse 106 100 Resp 12 12 B/P (MAP) 113/84 (94) 117/77 (90) Pulse Ox 97 97 98 O2 Delivery Ventilator Ventilator Mechanical Ventilator Ventilator 03/15/19 03/15/19 03/15/19 03/16/19 22:00 22:30 23:00 00:00 Pulse 80 84 Resp 12 12 B/P (MAP) 127/81 (96) 118/86 (97) Pulse Ox 98 99 100 O2 Delivery Ventilator Ventilator Ventilator Mechanical Ventilator 03/16/19 03/16/19 03/16/19 03/16/19 00:00 00:38 01:00 02:00 Temp 98.8 98.8 Pulse 72 80 82 Resp 12 12 12 B/P (MAP) 128/92 (104) 136/98 (111) 133/90 (104) Pulse Ox 99 99 96 O2 Delivery Ventilator Ventilator Ventilator Ventilator 03/16/19 03/16/19 03/16/19 03/16/19 03:00 03:00 04:00 04:00 Temp 98.6 98.6 Pulse 74 74 Resp 12 12 B/P (MAP) 123/86 (98) 133/85 (101) Pulse Ox 100 100 99 O2 Delivery Ventilator Ventilator Mechanical Ventilator Ventilator 03/16/19 03/16/19 03/16/19 03/16/19 05:00 05:20 06:00 07:00 Temp 98.3 98.3 Pulse 80 80 79 Resp 12 12 12 B/P (MAP) 120/84 (96) 124/90 (101) 119/80 (93) Pulse Ox 99 99 99 99 O2 Delivery Ventilator Ventilator Ventilator Ventilator 03/16/19 03/16/19 03/16/19 03/16/19 07:07 08:00 08:00 08:28 Pulse 78 Resp 12 B/P (MAP) 123/84 (97) Pulse Ox 100 99 100 O2 Delivery Ventilator Mechanical Ventilator Ventilator Ventilator 03/16/19 03/16/19 03/16/19 09:00 09:00 09:10 Pulse 63 Resp 60 B/P (MAP) 204/136 (158) Pulse Ox 99 100 100 O2 Delivery Ventilator Intake and Output 03/15/19 03/15/19 03/16/19 15:00 23:00 07:00 Intake Total 100 ml 1789 ml Output Total 925 ml 594 ml 1310 ml Balance -825 ml -594 ml 479 ml Images Echo LEFT VENTRICLE Not well visualized. Grossly normal LV function. EF 50% RIGHT VENTRICLE RV not well visualized. ATRIA Atria not well visualized. AORTIC VALVE The aortic valve is not well visualized. MITRAL VALVE Not well visualized. TRICUSPID VALVE The tricuspid valve is not well visualized. PULMONIC VALVE The pulmonic valve is not visualized. GREAT VESSELS The aortic root is not well visualized. PERICARDIAL EFFUSION No significant pericardial effusion Critical Notification Critical Value: No <Conclusion> Grossly normal LV function. EF 50% Essentially non-diagnostic surface echo, if clinical inidication present, consider ALDO. Technically very difficult study ROBBY SOLORZANO MD Mar 16, 2019 10:00
[2019-03-16] MEDS: VANCOMYCIN 750 MG in IV NORMAL SALINE 250ML 250 ML IV SCH (12:19)
[2019-03-16] MEDS: AMINO AC 3%/ELECTROLYTE/GLYCER 1,000 ML IV SCH (12:19)
[2019-03-16] MEDS: CHLORHEXIDINE 0.12% 15 ML MOUTHWASH. MM SCH (12:20)
[2019-03-16] MEDS: PANTOPRAZOLE IV PUSH 40 MG VIAL. IVP SCH (12:20)
--- NOTE | 2019-03-16 18:09 | PDOC2 ---
PALLIATIVE CARE Palliative Care Note Palliative Care 0855 patient seen. Patient remains on Vent. Spoke with Lynette/aunt. She was waiting for her brother and sister to arrive today. States as a family they will be making decisions. Likely change to comfort care and withdraw life support after family arrives. 1800 Spoke with Cecilia TYmanager retention will be back tomorrow and likely change to comfort care. SILVERIO HARPER Mar 16, 2019 18:09
--- NOTE | 2019-03-16 19:26 | NUR ---
RN notified [facility] that the patient's family would like to move forward with extubation and comfort care tomorrow 03/17 after family arrives around 1030. Reyna KEENAN notified. Dr. Leyva notified of family's wishes and notified that [facility] is currently on site and speaking with family in a private area. Lynette and Yelena, patient's aunt's, are currently in a meeting with [facility] financial service representative, Aron Mc. Report was given to Meaghan TY, updated on apnea test, ice water in ear this morning. See assessments, VS.
--- NOTE | 2019-03-16 19:42 | PN ---
DATE: 03/16/2019 SUBJECTIVE: The patient is resting slightly propped up in bed, in no apparent respiratory distress. He continued to be intubated, mechanically ventilated. Attempt to hold the ____ patient continued to breathe, blood pressure went up high; however, he had bilateral infarcts with areas of acute parenchymal hemorrhage and also mild intraventricular hemorrhage and probable degree of subarachnoid hemorrhage with herniation of the medial left temporal lobe, right temporal lobe, left uncus distorting the brainstem and superior martín with signal abnormality of the brainstem, has dysplastic appearance of the brain with encephalomalacia extending to the cortical surface of the left frontal lobe, has lateral ventriculomegaly more chronic appearance. Medical problems include sepsis syndrome and abdominal process, cerebral palsy and epilepsy history, on phenytoin. Currently not brain . He is a DNR. Poor prognosis was discussed with his aunt and her sister driving down from [place]. They will make a decision about extubation today. PHYSICAL EXAMINATION: GENERAL: When I saw him this morning, he was intubated and mechanically ventilated, pale, cachectic, but no jaundice, cyanosis or thyromegaly. No jugular venous distention. VITAL SIGNS: His heart rate was 91, blood pressure 119/91, temperature was 98, respiratory rate was 12, and oxygen saturation was 100% on FiO2 of 100%. HEAD, EYES, EARS, NOSE AND THROAT: Showed normocephalic, atraumatic. NECK: Supple. HEART: Showed normal first and second heart sounds. No gallop or murmur. CHEST: Clear to auscultation. No crepitation or rhonchi. ABDOMEN: Distended, soft, nontender. NEUROLOGIC: He is encephalopathic, nonverbal, does not open his eyes, nor does he respond to verbal or painful stimuli. His intake was 1870, output was 2260. LABORATORY DATA: As of this morning, his white cell count was 6000, hemoglobin 14, hematocrit 42, MCV 91, and platelet count of 139,000. Chemistry, serum sodium 154, potassium 3.9, chloride 114, bicarbonate 34, anion gap of 6, BUN 12, creatinine 0.8, estimated GFR was 160 mL per minute, glucose 153. Lactic acid was 1.7, calcium was 9.7. When he was taken off of the vent, he became extremely acidotic with a pH of 7.1, pCO2 went up to 126, pO2 503, oxygen saturation 100% on FiO2 of 100%. ASSESSMENT: 1. Acute respiratory failure, multifactorial. 2. Suspect sepsis. 3. Large left middle cerebral artery territory infarct, cerebral palsy, epilepsy by history, nausea, vomiting, diarrhea, possible aspiration pneumonia. Apparently, he was taken off the vent and he does continue to breathe and has a cough and gag reflex, however, chances of meaningful recovery is very poor. His aunt is driving from [place] to discuss the goal of care. CAREY BURTON MD DR: ELE/quita JOB#: [id number] / [id number]
--- NOTE | 2019-03-16 22:49 | PDOC ---
Provider Note Provider Note Anesthesia note: Arterial line placed at the request of [facility]. Utilizing sterile technique, 20 ga Arrow cath placed in right radial artery after betadine then chlorhexidene prep. Secured with tape and covered with op site dressing. Dick MORRIS [employer]UR[employer] HOSTESS Mar 16, 2019 22:49
[2019-03-16 23:41] LABS: BASE EXCESS ABG 4 mmol/L (-3-3); HCO3 ABG 30 mmol/L (21-28); PCO2 ABG 48 mmHg (35-46); PO2 ABG 458 mmHg (75-108); SAT O2 ABG 100 % (92-99)
[2019-03-17] VITALS (26 sets, daily range): BP systolic 108–160; BP diastolic 78–94
[2019-03-17] MEDS: VANCOMYCIN 750 MG in IV NORMAL SALINE 250ML 250 ML IV SCH ×2 (00:03→17:18)
[2019-03-17] MEDS: FOSPHENYTOIN 100 MG/2 ML VIAL. IV SCH ×4 (00:03→21:59)
[2019-03-17] MEDS: PANTOPRAZOLE IV PUSH 40 MG VIAL. IVP SCH ×3 (00:03→21:07)
[2019-03-17] MEDS: PIPERACILLIN/TAZOBACTAM 3.375 GM in IV NORMAL SALINE 50ML 50 ML IV SCH ×4 (00:04→17:17)
[2019-03-17] MEDS: CHLORHEXIDINE 0.12% 15 ML MOUTHWASH. MM SCH ×3 (00:04→21:07)
[2019-03-17 00:10] LABS: BASO % 0 % (0-3); EOS # 0.1 x10^3/uL (0.0-0.7); EOS % 1 % (0-3); HEMATOCRIT 40.9 % (39.0-53.0); HEMOGLOBIN 13.3 g/dL (13.0-17.5); LYMPH # 1.6 x10^3/uL (1.0-4.8); LYMPH % 20 % (24-48); MEAN CORPUSCULAR HEMOGLOBIN 30 pg (25-35); MEAN CORPUSCULAR HGB CONC 33 g/dL (31-37); MEAN CORPUSCULAR VOLUME 91 fL (79-100); MONO # 0.8 x10^3/uL (0.0-1.1); MONO % 9 % (0-9); NEUT # 5.9 x10^3/uL (1.8-7.7); NEUT % 70 % (31-73); PLATELET COUNT 124 x10^3/uL (140-400); RED BLOOD COUNT 4.51 x10^6/uL (4.30-5.70); RED CELL DISTRIBUTION WIDTH 14.8 % (11.5-14.5); WHITE BLOOD COUNT 8.4 x10^3/uL (4.0-11.0)
[2019-03-17 00:16] LABS: FIO2 ABG 100
[2019-03-17 00:28] LABS: ALBUMIN 2.7 g/dL (3.4-5.0); CALCIUM 9.1 mg/dL (8.5-10.1); CREATININE 0.6 mg/dL (0.7-1.3); DIRECT BILIRUBIN 0.1 mg/dL (0.0-0.2); GFR 147.8; POTASSIUM 3.8 mmol/L (3.5-5.1); TOTAL BILIRUBIN 0.4 mg/dL (0.2-1.0); TOTAL PROTEIN 7.6 g/dL (6.4-8.2)
[2019-03-17] MEDS: IV NORMAL SALINE 1000ML BAG 1,000 ML IV SCH ×2 (00:30→16:32)
[2019-03-17 01:34] LABS: PROTHROMBIN TIME PATIENT 15.5 SEC (11.7-14.0)
[2019-03-17 01:44] LABS: PHOSPHORUS 3.1 mg/dL (2.6-4.7)
[2019-03-17 03:08] LABS: BILIRUBIN,URINE NEGATIVE (NEG); CLARITY,URINE CLEAR; COLOR,URINE YELLOW; NITRITE,URINE NEGATIVE (NEG); PH,URINE 5.5; PROTEIN,URINE NEGATIVE (NEG-TRACE); UROBILINOGEN,URINE 0.2 mg/dL (0.2 mg/dL)
[2019-03-17 03:16] LABS: SQUAMOUS EPITHELIAL CELL,UR OCC /LPF
[2019-03-17 03:17] LABS: AMORPHOUS SEDIMENT,UR PRESENT /HPF; BACTERIA,URINE 0 /HPF (0-FEW); RBC,URINE RARE /HPF (0-2); WBC,URINE RARE /HPF (0-4)
--- NOTE | 2019-03-17 03:41 | RAD ---
Chest AP portable at 2244: Reason for examination: Organ donor. Comparison is made to previous study dated 03/15/2019. Endotracheal tube, NG tube and central venous line remain present. The heart size is normal. Mediastinum is unremarkable. Lung montero continue to show hazy opacity in the left lung base which could reflect discoid atelectasis but pneumonia cannot be excluded. No acute bony abnormalities are seen. Impression: Hazy opacity in the left lung base which could reflect discoid atelectasis or infiltrate. Electronically signed by: Tamika Maynard MD (03/17/2019 3:38 AM) [id number]
[2019-03-17 06:07] LABS: BASE EXCESS ABG 4 mmol/L (-3-3); HCO3 ABG 30 mmol/L (21-28); PCO2 ABG 49 mmHg (35-46); PO2 ABG 496 mmHg (75-108); SAT O2 ABG 100 % (92-99)
[2019-03-17 06:08] LABS: FIO2 ABG 100
[2019-03-17 06:13] LABS: HEMATOCRIT 38.4 % (39.0-53.0); HEMOGLOBIN 12.7 g/dL (13.0-17.5); RED BLOOD COUNT 4.24 x10^6/uL (4.30-5.70); RED CELL DISTRIBUTION WIDTH 14.8 % (11.5-14.5); WHITE BLOOD COUNT 7.6 x10^3/uL (4.0-11.0)
[2019-03-17 06:38] LABS: PROTHROMBIN TIME PATIENT 15.3 SEC (11.7-14.0)
[2019-03-17 06:43] LABS: ALBUMIN 2.7 g/dL (3.4-5.0); CALCIUM 8.3 mg/dL (8.5-10.1); CREATININE 0.5 mg/dL (0.7-1.3); DIRECT BILIRUBIN 0.1 mg/dL (0.0-0.2); GFR 182.3; MAGNESIUM 1.9 mg/dL (1.8-2.4); PHOSPHORUS 2.9 mg/dL (2.6-4.7); POTASSIUM 3.5 mmol/L (3.5-5.1); TOTAL BILIRUBIN 0.4 mg/dL (0.2-1.0); TOTAL PROTEIN 6.5 g/dL (6.4-8.2)
--- NOTE | 2019-03-17 08:54 | RAD ---
Examination: PORTABLE CHEST 1V History: Organ donor Comparison/Correlation: 03/16/2019 Portable Chest X-ray Exam Findings: Portable semiupright frontal view of the chest was obtained. Right internal jugular catheter is present. Endotracheal tube and nasogastric tube are in place. Left basilar chest tube noted. Chest tube is kinked laterally. Heart size and pulmonary vasculature are normal. No infiltrate or pneumothorax. Lung montero are clear. No pleural effusion. No acute bony process. Impression: No infiltrate. Electronically signed by: Esvin Crockett MD (03/17/2019 8:51 AM) [facility]
--- NOTE | 2019-03-17 09:16 | PDOC ---
PULMONARY PROGRESS NOTES Subjective ON VENT AC MODE Vitals Vital Signs Date Time Temp Pulse Resp B/P (MAP) Pulse Ox O2 Delivery O2 Flow Rate FiO2 03/17/19 08:10 Mechanical Ventilator 03/17/19 08:06 87 12 160/91 (114) 100 03/17/19 07:00 98.2 98.2 Lungs: Clear Cardiovascular: S1, S2 Abdomen: Soft Extremities: Other (NO CHANGE) Labs Laboratory Tests Test 03/15/19 17:00 03/16/19 07:00 03/16/19 07:45 03/16/19 09:15 White Blood Count 12.2 x10^3/uL (4.0-11.0) Red Blood Count 4.71 x10^6/uL (4.30-5.70) Hemoglobin 14.2 g/dL (13.0-17.5) Hematocrit 42.7 % (39.0-53.0) Mean Corpuscular Volume 91 fL (79-100) Mean Corpuscular Hemoglobin 30 pg (25-35) Mean Corpuscular Hemoglobin Concent 33 g/dL (31-37) Red Cell Distribution Width 14.7 % (11.5-14.5) Platelet Count 139 x10^3/uL (140-400) Neutrophils (%) (Auto) 78 % (31-73) Lymphocytes (%) (Auto) 14 % (24-48) Monocytes (%) (Auto) 8 % (0-9) Eosinophils (%) (Auto) 0 % (0-3) Basophils (%) (Auto) 0 % (0-3) Neutrophils # (Auto) 9.5 x10^3/uL (1.8-7.7) Lymphocytes # (Auto) 1.7 x10^3/uL (1.0-4.8) Monocytes # (Auto) 1.0 x10^3/uL (0.0-1.1) Eosinophils # (Auto) 0.0 x10^3/uL (0.0-0.7) Basophils # (Auto) 0.0 x10^3/uL (0.0-0.2) Sodium Level 154 mmol/L (136-145) Potassium Level 3.9 mmol/L (3.5-5.1) Chloride Level 114 mmol/L (98-107) Carbon Dioxide Level 34 mmol/L (21-32) Anion Gap 6 (6-14) Blood Urea Nitrogen 12 mg/dL (8-26) Creatinine 0.8 mg/dL (0.7-1.3) 0.6 mg/dL (0.7-1.3) Estimated GFR (Cockcroft-Gault) 106.0 147.8 Glucose Level 153 mg/dL (70-99) Lactic Acid Level 1.7 mmol/L (0.4-2.0) Calcium Level 9.7 mg/dL (8.5-10.1) O2 Saturation 98 % (92-99) 100 % (92-99) Arterial Blood pH 7.43 (7.35-7.45) 7.10 (7.35-7.45) Arterial Blood pCO2 at Patient Temp 49 mmHg (35-46) 126 mmHg (35-46) Arterial Blood pO2 at Patient Temp 108 mmHg (75-108) > 503 mmHg (75-108) Arterial Blood HCO3 32 mmol/L (21-28) 39 mmol/L (21-28) Arterial Blood Base Excess 6 mmol/L (-3-3) 4 mmol/L (-3-3) FiO2 35 100 Test 03/16/19 23:32 03/16/19 23:40 03/17/19 01:30 03/17/19 05:50 O2 Saturation 100 % (92-99) Arterial Blood pH 7.41 (7.35-7.45) Arterial Blood pCO2 at Patient Temp 48 mmHg (35-46) Arterial Blood pO2 at Patient Temp 458 mmHg (75-108) Arterial Blood HCO3 30 mmol/L (21-28) Arterial Blood Base Excess 4 mmol/L (-3-3) FiO2 100 White Blood Count 8.4 x10^3/uL (4.0-11.0) 7.6 x10^3/uL (4.0-11.0) Red Blood Count 4.51 x10^6/uL (4.30-5.70) 4.24 x10^6/uL (4.30-5.70) Hemoglobin 13.3 g/dL (13.0-17.5) 12.7 g/dL (13.0-17.5) Hematocrit 40.9 % (39.0-53.0) 38.4 % (39.0-53.0) Mean Corpuscular Volume 91 fL (79-100) 91 fL (79-100) Mean Corpuscular Hemoglobin 30 pg (25-35) 30 pg (25-35) Mean Corpuscular Hemoglobin Concent 33 g/dL (31-37) 33 g/dL (31-37) Red Cell Distribution Width 14.8 % (11.5-14.5) 14.8 % (11.5-14.5) Platelet Count 124 x10^3/uL (140-400) 112 x10^3/uL (140-400) Neutrophils (%) (Auto) 70 % (31-73) Lymphocytes (%) (Auto) 20 % (24-48) Monocytes (%) (Auto) 9 % (0-9) Eosinophils (%) (Auto) 1 % (0-3) Basophils (%) (Auto) 0 % (0-3) Neutrophils # (Auto) 5.9 x10^3/uL (1.8-7.7) Lymphocytes # (Auto) 1.6 x10^3/uL (1.0-4.8) Monocytes # (Auto) 0.8 x10^3/uL (0.0-1.1) Eosinophils # (Auto) 0.1 x10^3/uL (0.0-0.7) Basophils # (Auto) 0.0 x10^3/uL (0.0-0.2) Prothrombin Time 15.5 SEC (11.7-14.0) 15.3 SEC (11.7-14.0) Prothromb Time International Ratio 1.3 (0.8-1.1) 1.2 (0.8-1.1) Activated Partial Thromboplast Time 32 SEC (24-38) 32 SEC (24-38) Fibrinogen 902 mg/dL (200-440) 910 mg/dL (200-440) Sodium Level 152 mmol/L (136-145) 154 mmol/L (136-145) Potassium Level 3.8 mmol/L (3.5-5.1) 3.5 mmol/L (3.5-5.1) Chloride Level 115 mmol/L (98-107) 116 mmol/L (98-107) Carbon Dioxide Level 31 mmol/L (21-32) 31 mmol/L (21-32) Anion Gap 6 (6-14) 7 (6-14) Blood Urea Nitrogen 13 mg/dL (8-26) 13 mg/dL (8-26) Creatinine 0.6 mg/dL (0.7-1.3) 0.5 mg/dL (0.7-1.3) Estimated GFR (Cockcroft-Gault) 147.8 182.3 Glucose Level 136 mg/dL (70-99) 112 mg/dL (70-99) Lactic Acid Level 1.0 mmol/L (0.4-2.0) 0.9 mmol/L (0.4-2.0) Calcium Level 9.1 mg/dL (8.5-10.1) 8.3 mg/dL (8.5-10.1) Phosphorus Level 3.1 mg/dL (2.6-4.7) 2.9 mg/dL (2.6-4.7) Magnesium Level 2.0 mg/dL (1.8-2.4) 1.9 mg/dL (1.8-2.4) Total Bilirubin 0.4 mg/dL (0.2-1.0) 0.4 mg/dL (0.2-1.0) Direct Bilirubin 0.1 mg/dL (0.0-0.2) 0.1 mg/dL (0.0-0.2) Gamma Glutamyl Transpeptidase 69 U/L (10-85) 84 U/L (10-85) Aspartate Amino Transf (AST/SGOT) 32 U/L (15-37) 36 U/L (15-37) Alanine Aminotransferase (ALT/SGPT) 21 U/L (16-63) 22 U/L (16-63) Alkaline Phosphatase 80 U/L (46-116) 79 U/L (46-116) Lactate Dehydrogenase 395 U/L (85-227) 387 U/L (85-227) Total Protein 7.6 g/dL (6.4-8.2) 6.5 g/dL (6.4-8.2) Albumin 2.7 g/dL (3.4-5.0) 2.7 g/dL (3.4-5.0) Amylase Level 210 U/L (25-115) 234 U/L (25-115) Lipase 381 U/L (73-393) 443 U/L (73-393) Urine Collection Type Unknown Urine Color Yellow Urine Clarity Clear Urine pH 5.5 Urine Specific [place] 1.020 Urine Protein Negative mg/dL (NEG-TRACE) Urine Glucose (UA) Negative mg/dL (NEG) Urine Ketones (Stick) Negative mg/dL (NEG) Urine Blood Negative (NEG) Urine Nitrite Negative (NEG) Urine Bilirubin Negative (NEG) Urine Urobilinogen Dipstick 0.2 mg/dL (0.2 mg/dL) Urine Leukocyte Esterase Negative (NEG) Urine RBC Rare /HPF (0-2) Urine WBC Rare /HPF (0-4) Urine Squamous Epithelial Cells Occ /LPF Urine Amorphous Sediment Present /HPF Urine Bacteria 0 /HPF (0-FEW) Urine Mucus Slight /LPF Ionized Calcium 1.14 mmol/L (1.13-1.32) Test 03/17/19 06:00 03/17/19 06:33 03/17/19 08:23 O2 Saturation 100 % (92-99) Arterial Blood pH 7.40 (7.35-7.45) Arterial Blood pCO2 at Patient Temp 49 mmHg (35-46) Arterial Blood pO2 at Patient Temp 496 mmHg (75-108) Arterial Blood HCO3 30 mmol/L (21-28) Arterial Blood Base Excess 4 mmol/L (-3-3) FiO2 100 Glucose (Fingerstick) 89 mg/dL (70-99) 90 mg/dL (70-99) Laboratory Tests Test 03/16/19 23:32 03/16/19 23:40 03/17/19 01:30 03/17/19 05:50 O2 Saturation 100 % (92-99) Arterial Blood pH 7.41 (7.35-7.45) Arterial Blood pCO2 at Patient Temp 48 mmHg (35-46) Arterial Blood pO2 at Patient Temp 458 mmHg (75-108) Arterial Blood HCO3 30 mmol/L (21-28) Arterial Blood Base Excess 4 mmol/L (-3-3) FiO2 100 White Blood Count 8.4 x10^3/uL (4.0-11.0) 7.6 x10^3/uL (4.0-11.0) Red Blood Count 4.51 x10^6/uL (4.30-5.70) 4.24 x10^6/uL (4.30-5.70) Hemoglobin 13.3 g/dL (13.0-17.5) 12.7 g/dL (13.0-17.5) Hematocrit 40.9 % (39.0-53.0) 38.4 % (39.0-53.0) Mean Corpuscular Volume 91 fL (79-100) 91 fL (79-100) Mean Corpuscular Hemoglobin 30 pg (25-35) 30 pg (25-35) Mean Corpuscular Hemoglobin Concent 33 g/dL (31-37) 33 g/dL (31-37) Red Cell Distribution Width 14.8 % (11.5-14.5) 14.8 % (11.5-14.5) Platelet Count 124 x10^3/uL (140-400) 112 x10^3/uL (140-400) Neutrophils (%) (Auto) 70 % (31-73) Lymphocytes (%) (Auto) 20 % (24-48) Monocytes (%) (Auto) 9 % (0-9) Eosinophils (%) (Auto) 1 % (0-3) Basophils (%) (Auto) 0 % (0-3) Neutrophils # (Auto) 5.9 x10^3/uL (1.8-7.7) Lymphocytes # (Auto) 1.6 x10^3/uL (1.0-4.8) Monocytes # (Auto) 0.8 x10^3/uL (0.0-1.1) Eosinophils # (Auto) 0.1 x10^3/uL (0.0-0.7) Basophils # (Auto) 0.0 x10^3/uL (0.0-0.2) Prothrombin Time 15.5 SEC (11.7-14.0) 15.3 SEC (11.7-14.0) Prothromb Time International Ratio 1.3 (0.8-1.1) 1.2 (0.8-1.1) Activated Partial Thromboplast Time 32 SEC (24-38) 32 SEC (24-38) Fibrinogen 902 mg/dL (200-440) 910 mg/dL (200-440) Sodium Level 152 mmol/L (136-145) 154 mmol/L (136-145) Potassium Level 3.8 mmol/L (3.5-5.1) 3.5 mmol/L (3.5-5.1) Chloride Level 115 mmol/L (98-107) 116 mmol/L (98-107) Carbon Dioxide Level 31 mmol/L (21-32) 31 mmol/L (21-32) Anion Gap 6 (6-14) 7 (6-14) Blood Urea Nitrogen 13 mg/dL (8-26) 13 mg/dL (8-26) Creatinine 0.6 mg/dL (0.7-1.3) 0.5 mg/dL (0.7-1.3) Estimated GFR (Cockcroft-Gault) 147.8 182.3 Glucose Level 136 mg/dL (70-99) 112 mg/dL (70-99) Lactic Acid Level 1.0 mmol/L (0.4-2.0) 0.9 mmol/L (0.4-2.0) Calcium Level 9.1 mg/dL (8.5-10.1) 8.3 mg/dL (8.5-10.1) Phosphorus Level 3.1 mg/dL (2.6-4.7) 2.9 mg/dL (2.6-4.7) Magnesium Level 2.0 mg/dL (1.8-2.4) 1.9 mg/dL (1.8-2.4) Total Bilirubin 0.4 mg/dL (0.2-1.0) 0.4 mg/dL (0.2-1.0) Direct Bilirubin 0.1 mg/dL (0.0-0.2) 0.1 mg/dL (0.0-0.2) Gamma Glutamyl Transpeptidase 69 U/L (10-85) 84 U/L (10-85) Aspartate Amino Transf (AST/SGOT) 32 U/L (15-37) 36 U/L (15-37) Alanine Aminotransferase (ALT/SGPT) 21 U/L (16-63) 22 U/L (16-63) Alkaline Phosphatase 80 U/L (46-116) 79 U/L (46-116) Lactate Dehydrogenase 395 U/L (85-227) 387 U/L (85-227) Total Protein 7.6 g/dL (6.4-8.2) 6.5 g/dL (6.4-8.2) Albumin 2.7 g/dL (3.4-5.0) 2.7 g/dL (3.4-5.0) Amylase Level 210 U/L (25-115) 234 U/L (25-115) Lipase 381 U/L (73-393) 443 U/L (73-393) Urine Collection Type Unknown Urine Color Yellow Urine Clarity Clear Urine pH 5.5 Urine Specific [place] 1.020 Urine Protein Negative mg/dL (NEG-TRACE) Urine Glucose (UA) Negative mg/dL (NEG) Urine Ketones (Stick) Negative mg/dL (NEG) Urine Blood Negative (NEG) Urine Nitrite Negative (NEG) Urine Bilirubin Negative (NEG) Urine Urobilinogen Dipstick 0.2 mg/dL (0.2 mg/dL) Urine Leukocyte Esterase Negative (NEG) Urine RBC Rare /HPF (0-2) Urine WBC Rare /HPF (0-4) Urine Squamous Epithelial Cells Occ /LPF Urine Amorphous Sediment Present /HPF Urine Bacteria 0 /HPF (0-FEW) Urine Mucus Slight /LPF Ionized Calcium 1.14 mmol/L (1.13-1.32) Test 03/17/19 06:00 03/17/19 06:33 03/17/19 08:23 O2 Saturation 100 % (92-99) Arterial Blood pH 7.40 (7.35-7.45) Arterial Blood pCO2 at Patient Temp 49 mmHg (35-46) Arterial Blood pO2 at Patient Temp 496 mmHg (75-108) Arterial Blood HCO3 30 mmol/L (21-28) Arterial Blood Base Excess 4 mmol/L (-3-3) FiO2 100 Glucose (Fingerstick) 89 mg/dL (70-99) 90 mg/dL (70-99) Medications Active Scripts Medications Dose Route/Sig Max Daily Dose Days Date Category Omeprazole 40 Mg Capsule.dr 40 Mg PO DAILY 04/30/18 Reported Phenytoin 50 Mg Tab.chew 100 Mg PO QHS 04/30/18 Reported Phenytoin 50 Mg Tab.chew 75 Mg PO DAILY08 04/30/18 Reported Impression . IMPRESSION: 1. Acute respiratory failure, multifactorial. 2. Suspect sepsis. 3. Large left middle cerebral artery infarct, unknown time of onset. 4. Cerebral palsy. 5. Epilepsy by history. 6. Nausea, vomiting, and diarrhea. 7. Possible aspiration pneumonia. MRI BRAIN Impression: 1. There are large areas of restricted diffusion bilaterally greater on the left, evidence of recent acute/early subacute infarcts with areas of acute parenchymal hemorrhage and also mild intraventricular hemorrhage, also probable degree of subarachnoid hemorrhage. There is degree of inferior herniation of the hemorrhagic medial left temporal lobe below the tentorium by about 2 cm, to l alena degree on the right. There is left uncal herniation. There is distortion of the brainstem and superior martín. There is also diffusion signal abnormality of the brainstem likely component of ischemia and edema. Cerebellar tonsils at the lower limits of normal, effacement of the fourth ventricle greater inferiorly. 2. Intradural vertebral artery flow voids are not well visualized on either side on this exam although visualization of the basilar artery flow-void. 3. 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 4. There is again lateral ventriculomegaly although more chronic appearance. There is effacement of the left temporal horn, dilatation of the right temporal horn. Plan . PT TO BE EXTUBATED LATER TODAY WILL PERFROM A [facility] FOR TO RULE OUT INFECTION PT IS TO BE AN ORGAN DONOR ALEX LYONS MD Mar 17, 2019 09:16
[2019-03-17] MEDS ORDERED: VANCOMYCIN 1 GM in IV NORMAL SALINE 250ML 250 ML IV ONE (10:00)
[2019-03-17 11:48] LABS: BASO % 0 % (0-3); EOS # 0.2 x10^3/uL (0.0-0.7); EOS % 2 % (0-3); HEMATOCRIT 36.9 % (39.0-53.0); HEMOGLOBIN 12.3 g/dL (13.0-17.5); LYMPH # 1.4 x10^3/uL (1.0-4.8); LYMPH % 18 % (24-48); MEAN CORPUSCULAR HEMOGLOBIN 30 pg (25-35); MEAN CORPUSCULAR HGB CONC 33 g/dL (31-37); MEAN CORPUSCULAR VOLUME 91 fL (79-100); MONO # 0.7 x10^3/uL (0.0-1.1); MONO % 10 % (0-9); NEUT % 69 % (31-73); PLATELET COUNT 106 x10^3/uL (140-400); RED BLOOD COUNT 4.06 x10^6/uL (4.30-5.70); RED CELL DISTRIBUTION WIDTH 14.9 % (11.5-14.5); WHITE BLOOD COUNT 7.3 x10^3/uL (4.0-11.0)
[2019-03-17 12:02] LABS: ALBUMIN 2.5 g/dL (3.4-5.0); CALCIUM 8.3 mg/dL (8.5-10.1); CREATININE 0.5 mg/dL (0.7-1.3); DIRECT BILIRUBIN 0.2 mg/dL (0.0-0.2); GFR 182.3; MAGNESIUM 1.8 mg/dL (1.8-2.4); PHOSPHORUS 3.2 mg/dL (2.6-4.7); POTASSIUM 3.6 mmol/L (3.5-5.1); TOTAL BILIRUBIN 0.4 mg/dL (0.2-1.0); TOTAL PROTEIN 6.9 g/dL (6.4-8.2)
[2019-03-17 12:05] LABS: BASE EXCESS ABG 0 mmol/L (-3-3); HCO3 ABG 25 mmol/L (21-28); PCO2 ABG 43 mmHg (35-46); PO2 ABG 499 mmHg (75-108); SAT O2 ABG 100 % (92-99)
[2019-03-17 12:06] LABS: FIO2 ABG 100
--- NOTE | 2019-03-17 13:13 | RAD ---
Chest CT without contrast Clinical indications: Organ donor TECHNIQUE: Noncontrast helical CT scanning of the chest was performed. Without contrast, the sensitivity to detect organ pathology is decreased. PQRS compliance Statement One or more of the following individualized dose reduction techniques were utilized for this study: 1. Automated exposure control 2. Adjustment of the mA and/or kV according to patient size 3. 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 Heart size is not enlarged. Small amount of pericardial fluid is present. No focal aneurysmal dilatation of the thoracic aorta is seen. No enlarged thoracic lymphadenopathy is evident. ET tube is in place and tip is located above the level of the jovita. NG tube is in place and tip is seen extending into the proximal body of the stomach. Left-sided chest tube is in place and the tip is seen extending into the medial mid aspect of the left pleural space. There is a moderate-sized pneumothorax present on the left side. There is consolidative infiltrate within the posterior aspect of the basal segments and the superior segment of the left lower lobe. Groundglass lung infiltrate is present within the posterior segment of the left upper lobe. Consolidative infiltrate and present within the posterior and lateral basal segments of the right lower lobe. No pleural effusion is seen. There is mucus or debris present within the posterior aspect of the trachea and of the jovita. No adrenal mass is evident. Contrast is seen within the gallbladder. No lytic process is evident. IMPRESSION: Moderate-sized left-sided pneumothorax with chest tube in place. Consolidative infiltrates within the lower lobes bilaterally and groundglass lung infiltrate within the posterior segment of the left upper lobe. Mucus or debris is present within the distal trachea and the jovita. Calcified atheromatous disease of the coronary arteries. Electronically signed by: Cody Sinclair MD (03/17/2019 1:10 PM) [place] [id number]
--- NOTE | 2019-03-17 13:22 | PDOC ---
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 Medical problems including sepsis syndrome and abdominal process Cerebral palsy history Epilepsy history, on phenytoin, on intravenous phenytoin here. Not brain Plan Note plans for organ transplantation. Subjective None Objective Vital Signs Date Time Temp Pulse Resp B/P (MAP) Pulse Ox O2 Delivery O2 Flow Rate FiO2 03/17/19 12:02 100 Ventilator 03/17/19 11:06 98.8 90 12 157/88 (111) 98.8 Intake and Output 03/17/19 07:00 Intake Total 1957 ml Output Total 2174 ml Balance -217 ml Intake Oral 0 ml IV Total 1957 ml Output Urine Total 1840 ml Gastric Drainage Total 300 ml Chest Tube Drainage Total 34 ml PHYSICAL EXAM Intubated, no response Has spontaneous respirations Pupils nonreactive to bright light. Corneal reflex absent. Oculocephalic reflex absent Oculovestibular reflex absent. No facial movement to noxious stimuli at supraorbital nerve, temporomandibular joint Gag reflex absent. Cough reflex absent to tracheal suctioning. Absence of motor response to noxious stimuli in all four limbs Review of Relevant I have reviewed the following items lucy (where applicable) has been applied. Labs Laboratory Tests Test 03/15/19 17:00 03/16/19 07:00 03/16/19 07:45 03/16/19 09:15 White Blood Count 12.2 x10^3/uL (4.0-11.0) Red Blood Count 4.71 x10^6/uL (4.30-5.70) Hemoglobin 14.2 g/dL (13.0-17.5) Hematocrit 42.7 % (39.0-53.0) Mean Corpuscular Volume 91 fL (79-100) Mean Corpuscular Hemoglobin 30 pg (25-35) Mean Corpuscular Hemoglobin Concent 33 g/dL (31-37) Red Cell Distribution Width 14.7 % (11.5-14.5) Platelet Count 139 x10^3/uL (140-400) Neutrophils (%) (Auto) 78 % (31-73) Lymphocytes (%) (Auto) 14 % (24-48) Monocytes (%) (Auto) 8 % (0-9) Eosinophils (%) (Auto) 0 % (0-3) Basophils (%) (Auto) 0 % (0-3) Neutrophils # (Auto) 9.5 x10^3/uL (1.8-7.7) Lymphocytes # (Auto) 1.7 x10^3/uL (1.0-4.8) Monocytes # (Auto) 1.0 x10^3/uL (0.0-1.1) Eosinophils # (Auto) 0.0 x10^3/uL (0.0-0.7) Basophils # (Auto) 0.0 x10^3/uL (0.0-0.2) Sodium Level 154 mmol/L (136-145) Potassium Level 3.9 mmol/L (3.5-5.1) Chloride Level 114 mmol/L (98-107) Carbon Dioxide Level 34 mmol/L (21-32) Anion Gap 6 (6-14) Blood Urea Nitrogen 12 mg/dL (8-26) Creatinine 0.8 mg/dL (0.7-1.3) 0.6 mg/dL (0.7-1.3) Estimated GFR (Cockcroft-Gault) 106.0 147.8 Glucose Level 153 mg/dL (70-99) Lactic Acid Level 1.7 mmol/L (0.4-2.0) Calcium Level 9.7 mg/dL (8.5-10.1) O2 Saturation 98 % (92-99) 100 % (92-99) Arterial Blood pH 7.43 (7.35-7.45) 7.10 (7.35-7.45) Arterial Blood pCO2 at Patient Temp 49 mmHg (35-46) 126 mmHg (35-46) Arterial Blood pO2 at Patient Temp 108 mmHg (75-108) > 503 mmHg (75-108) Arterial Blood HCO3 32 mmol/L (21-28) 39 mmol/L (21-28) Arterial Blood Base Excess 6 mmol/L (-3-3) 4 mmol/L (-3-3) FiO2 35 100 Test 03/16/19 23:32 03/16/19 23:40 03/17/19 01:30 03/17/19 05:50 O2 Saturation 100 % (92-99) Arterial Blood pH 7.41 (7.35-7.45) Arterial Blood pCO2 at Patient Temp 48 mmHg (35-46) Arterial Blood pO2 at Patient Temp 458 mmHg (75-108) Arterial Blood HCO3 30 mmol/L (21-28) Arterial Blood Base Excess 4 mmol/L (-3-3) FiO2 100 White Blood Count 8.4 x10^3/uL (4.0-11.0) 7.6 x10^3/uL (4.0-11.0) Red Blood Count 4.51 x10^6/uL (4.30-5.70) 4.24 x10^6/uL (4.30-5.70) Hemoglobin 13.3 g/dL (13.0-17.5) 12.7 g/dL (13.0-17.5) Hematocrit 40.9 % (39.0-53.0) 38.4 % (39.0-53.0) Mean Corpuscular Volume 91 fL (79-100) 91 fL (79-100) Mean Corpuscular Hemoglobin 30 pg (25-35) 30 pg (25-35) Mean Corpuscular Hemoglobin Concent 33 g/dL (31-37) 33 g/dL (31-37) Red Cell Distribution Width 14.8 % (11.5-14.5) 14.8 % (11.5-14.5) Platelet Count 124 x10^3/uL (140-400) 112 x10^3/uL (140-400) Neutrophils (%) (Auto) 70 % (31-73) Lymphocytes (%) (Auto) 20 % (24-48) Monocytes (%) (Auto) 9 % (0-9) Eosinophils (%) (Auto) 1 % (0-3) Basophils (%) (Auto) 0 % (0-3) Neutrophils # (Auto) 5.9 x10^3/uL (1.8-7.7) Lymphocytes # (Auto) 1.6 x10^3/uL (1.0-4.8) Monocytes # (Auto) 0.8 x10^3/uL (0.0-1.1) Eosinophils # (Auto) 0.1 x10^3/uL (0.0-0.7) Basophils # (Auto) 0.0 x10^3/uL (0.0-0.2) Prothrombin Time 15.5 SEC (11.7-14.0) 15.3 SEC (11.7-14.0) Prothromb Time International Ratio 1.3 (0.8-1.1) 1.2 (0.8-1.1) Activated Partial Thromboplast Time 32 SEC (24-38) 32 SEC (24-38) Fibrinogen 902 mg/dL (200-440) 910 mg/dL (200-440) Sodium Level 152 mmol/L (136-145) 154 mmol/L (136-145) Potassium Level 3.8 mmol/L (3.5-5.1) 3.5 mmol/L (3.5-5.1) Chloride Level 115 mmol/L (98-107) 116 mmol/L (98-107) Carbon Dioxide Level 31 mmol/L (21-32) 31 mmol/L (21-32) Anion Gap 6 (6-14) 7 (6-14) Blood Urea Nitrogen 13 mg/dL (8-26) 13 mg/dL (8-26) Creatinine 0.6 mg/dL (0.7-1.3) 0.5 mg/dL (0.7-1.3) Estimated GFR (Cockcroft-Gault) 147.8 182.3 Glucose Level 136 mg/dL (70-99) 112 mg/dL (70-99) Lactic Acid Level 1.0 mmol/L (0.4-2.0) 0.9 mmol/L (0.4-2.0) Calcium Level 9.1 mg/dL (8.5-10.1) 8.3 mg/dL (8.5-10.1) Phosphorus Level 3.1 mg/dL (2.6-4.7) 2.9 mg/dL (2.6-4.7) Magnesium Level 2.0 mg/dL (1.8-2.4) 1.9 mg/dL (1.8-2.4) Total Bilirubin 0.4 mg/dL (0.2-1.0) 0.4 mg/dL (0.2-1.0) Direct Bilirubin 0.1 mg/dL (0.0-0.2) 0.1 mg/dL (0.0-0.2) Gamma Glutamyl Transpeptidase 69 U/L (10-85) 84 U/L (10-85) Aspartate Amino Transf (AST/SGOT) 32 U/L (15-37) 36 U/L (15-37) Alanine Aminotransferase (ALT/SGPT) 21 U/L (16-63) 22 U/L (16-63) Alkaline Phosphatase 80 U/L (46-116) 79 U/L (46-116) Lactate Dehydrogenase 395 U/L (85-227) 387 U/L (85-227) Total Protein 7.6 g/dL (6.4-8.2) 6.5 g/dL (6.4-8.2) Albumin 2.7 g/dL (3.4-5.0) 2.7 g/dL (3.4-5.0) Amylase Level 210 U/L (25-115) 234 U/L (25-115) Lipase 381 U/L (73-393) 443 U/L (73-393) Urine Collection Type Unknown Urine Color Yellow Urine Clarity Clear Urine pH 5.5 Urine Specific Central 1.020 Urine Protein Negative mg/dL (NEG-TRACE) Urine Glucose (UA) Negative mg/dL (NEG) Urine Ketones (Stick) Negative mg/dL (NEG) Urine Blood Negative (NEG) Urine Nitrite Negative (NEG) Urine Bilirubin Negative (NEG) Urine Urobilinogen Dipstick 0.2 mg/dL (0.2 mg/dL) Urine Leukocyte Esterase Negative (NEG) Urine RBC Rare /HPF (0-2) Urine WBC Rare /HPF (0-4) Urine Squamous Epithelial Cells Occ /LPF Urine Amorphous Sediment Present /HPF Urine Bacteria 0 /HPF (0-FEW) Urine Mucus Slight /LPF Ionized Calcium 1.14 mmol/L (1.13-1.32) Test 03/17/19 06:00 03/17/19 06:33 03/17/19 08:23 03/17/19 08:30 O2 Saturation 100 % (92-99) Arterial Blood pH 7.40 (7.35-7.45) Arterial Blood pCO2 at Patient Temp 49 mmHg (35-46) Arterial Blood pO2 at Patient Temp 496 mmHg (75-108) Arterial Blood HCO3 30 mmol/L (21-28) Arterial Blood Base Excess 4 mmol/L (-3-3) FiO2 100 Glucose (Fingerstick) 89 mg/dL (70-99) 90 mg/dL (70-99) Vancomycin Level Trough 9.0 mcg/mL (10.0-20.0) Vancomycin Last Dose Date 03/16/19 Vancomycin Last Dose Time 2100 Test 03/17/19 10:09 03/17/19 11:40 03/17/19 11:50 03/17/19 12:00 Glucose (Fingerstick) 80 mg/dL (70-99) White Blood Count 7.3 x10^3/uL (4.0-11.0) Red Blood Count 4.06 x10^6/uL (4.30-5.70) Hemoglobin 12.3 g/dL (13.0-17.5) Hematocrit 36.9 % (39.0-53.0) Mean Corpuscular Volume 91 fL (79-100) Mean Corpuscular Hemoglobin 30 pg (25-35) Mean Corpuscular Hemoglobin Concent 33 g/dL (31-37) Red Cell Distribution Width 14.9 % (11.5-14.5) Platelet Count 106 x10^3/uL (140-400) Neutrophils (%) (Auto) 69 % (31-73) Lymphocytes (%) (Auto) 18 % (24-48) Monocytes (%) (Auto) 10 % (0-9) Eosinophils (%) (Auto) 2 % (0-3) Basophils (%) (Auto) 0 % (0-3) Neutrophils # (Auto) 5.0 x10^3/uL (1.8-7.7) Lymphocytes # (Auto) 1.4 x10^3/uL (1.0-4.8) Monocytes # (Auto) 0.7 x10^3/uL (0.0-1.1) Eosinophils # (Auto) 0.2 x10^3/uL (0.0-0.7) Basophils # (Auto) 0.0 x10^3/uL (0.0-0.2) Prothrombin Time 15.0 SEC (11.7-14.0) Prothromb Time International Ratio 1.2 (0.8-1.1) Activated Partial Thromboplast Time 31 SEC (24-38) Fibrinogen 851 mg/dL (200-440) Sodium Level 153 mmol/L (136-145) Potassium Level 3.6 mmol/L (3.5-5.1) Chloride Level 117 mmol/L (98-107) Carbon Dioxide Level 30 mmol/L (21-32) Anion Gap 6 (6-14) Blood Urea Nitrogen 14 mg/dL (8-26) Creatinine 0.5 mg/dL (0.7-1.3) Estimated GFR (Cockcroft-Gault) 182.3 Glucose Level 88 mg/dL (70-99) Lactic Acid Level 0.8 mmol/L (0.4-2.0) Calcium Level 8.3 mg/dL (8.5-10.1) Phosphorus Level 3.2 mg/dL (2.6-4.7) Magnesium Level 1.8 mg/dL (1.8-2.4) Total Bilirubin 0.4 mg/dL (0.2-1.0) Direct Bilirubin 0.2 mg/dL (0.0-0.2) Gamma Glutamyl Transpeptidase 78 U/L (10-85) Aspartate Amino Transf (AST/SGOT) 42 U/L (15-37) Alanine Aminotransferase (ALT/SGPT) 21 U/L (16-63) Alkaline Phosphatase 76 U/L (46-116) Lactate Dehydrogenase 376 U/L (85-227) Total Protein 6.9 g/dL (6.4-8.2) Albumin 2.5 g/dL (3.4-5.0) Amylase Level 217 U/L (25-115) Lipase 369 U/L (73-393) Ionized Calcium 1.13 mmol/L (1.13-1.32) O2 Saturation 100 % (92-99) Arterial Blood pH 7.39 (7.35-7.45) Arterial Blood pCO2 at Patient Temp 43 mmHg (35-46) Arterial Blood pO2 at Patient Temp 499 mmHg (75-108) Arterial Blood HCO3 25 mmol/L (21-28) Arterial Blood Base Excess 0 mmol/L (-3-3) FiO2 100 Laboratory Tests Test 03/16/19 23:32 03/16/19 23:40 03/17/19 01:30 03/17/19 05:50 O2 Saturation 100 % (92-99) Arterial Blood pH 7.41 (7.35-7.45) Arterial Blood pCO2 at Patient Temp 48 mmHg (35-46) Arterial Blood pO2 at Patient Temp 458 mmHg (75-108) Arterial Blood HCO3 30 mmol/L (21-28) Arterial Blood Base Excess 4 mmol/L (-3-3) FiO2 100 White Blood Count 8.4 x10^3/uL (4.0-11.0) 7.6 x10^3/uL (4.0-11.0) Red Blood Count 4.51 x10^6/uL (4.30-5.70) 4.24 x10^6/uL (4.30-5.70) Hemoglobin 13.3 g/dL (13.0-17.5) 12.7 g/dL (13.0-17.5) Hematocrit 40.9 % (39.0-53.0) 38.4 % (39.0-53.0) Mean Corpuscular Volume 91 fL (79-100) 91 fL (79-100) Mean Corpuscular Hemoglobin 30 pg (25-35) 30 pg (25-35) Mean Corpuscular Hemoglobin Concent 33 g/dL (31-37) 33 g/dL (31-37) Red Cell Distribution Width 14.8 % (11.5-14.5) 14.8 % (11.5-14.5) Platelet Count 124 x10^3/uL (140-400) 112 x10^3/uL (140-400) Neutrophils (%) (Auto) 70 % (31-73) Lymphocytes (%) (Auto) 20 % (24-48) Monocytes (%) (Auto) 9 % (0-9) Eosinophils (%) (Auto) 1 % (0-3) Basophils (%) (Auto) 0 % (0-3) Neutrophils # (Auto) 5.9 x10^3/uL (1.8-7.7) Lymphocytes # (Auto) 1.6 x10^3/uL (1.0-4.8) Monocytes # (Auto) 0.8 x10^3/uL (0.0-1.1) Eosinophils # (Auto) 0.1 x10^3/uL (0.0-0.7) Basophils # (Auto) 0.0 x10^3/uL (0.0-0.2) Prothrombin Time 15.5 SEC (11.7-14.0) 15.3 SEC (11.7-14.0) Prothromb Time International Ratio 1.3 (0.8-1.1) 1.2 (0.8-1.1) Activated Partial Thromboplast Time 32 SEC (24-38) 32 SEC (24-38) Fibrinogen 902 mg/dL (200-440) 910 mg/dL (200-440) Sodium Level 152 mmol/L (136-145) 154 mmol/L (136-145) Potassium Level 3.8 mmol/L (3.5-5.1) 3.5 mmol/L (3.5-5.1) Chloride Level 115 mmol/L (98-107) 116 mmol/L (98-107) Carbon Dioxide Level 31 mmol/L (21-32) 31 mmol/L (21-32) Anion Gap 6 (6-14) 7 (6-14) Blood Urea Nitrogen 13 mg/dL (8-26) 13 mg/dL (8-26) Creatinine 0.6 mg/dL (0.7-1.3) 0.5 mg/dL (0.7-1.3) Estimated GFR (Cockcroft-Gault) 147.8 182.3 Glucose Level 136 mg/dL (70-99) 112 mg/dL (70-99) Lactic Acid Level 1.0 mmol/L (0.4-2.0) 0.9 mmol/L (0.4-2.0) Calcium Level 9.1 mg/dL (8.5-10.1) 8.3 mg/dL (8.5-10.1) Phosphorus Level 3.1 mg/dL (2.6-4.7) 2.9 mg/dL (2.6-4.7) Magnesium Level 2.0 mg/dL (1.8-2.4) 1.9 mg/dL (1.8-2.4) Total Bilirubin 0.4 mg/dL (0.2-1.0) 0.4 mg/dL (0.2-1.0) Direct Bilirubin 0.1 mg/dL (0.0-0.2) 0.1 mg/dL (0.0-0.2) Gamma Glutamyl Transpeptidase 69 U/L (10-85) 84 U/L (10-85) Aspartate Amino Transf (AST/SGOT) 32 U/L (15-37) 36 U/L (15-37) Alanine Aminotransferase (ALT/SGPT) 21 U/L (16-63) 22 U/L (16-63) Alkaline Phosphatase 80 U/L (46-116) 79 U/L (46-116) Lactate Dehydrogenase 395 U/L (85-227) 387 U/L (85-227) Total Protein 7.6 g/dL (6.4-8.2) 6.5 g/dL (6.4-8.2) Albumin 2.7 g/dL (3.4-5.0) 2.7 g/dL (3.4-5.0) Amylase Level 210 U/L (25-115) 234 U/L (25-115) Lipase 381 U/L (73-393) 443 U/L (73-393) Urine Collection Type Unknown Urine Color Yellow Urine Clarity Clear Urine pH 5.5 Urine Specific Central 1.020 Urine Protein Negative mg/dL (NEG-TRACE) Urine Glucose (UA) Negative mg/dL (NEG) Urine Ketones (Stick) Negative mg/dL (NEG) Urine Blood Negative (NEG) Urine Nitrite Negative (NEG) Urine Bilirubin Negative (NEG) Urine Urobilinogen Dipstick 0.2 mg/dL (0.2 mg/dL) Urine Leukocyte Esterase Negative (NEG) Urine RBC Rare /HPF (0-2) Urine WBC Rare /HPF (0-4) Urine Squamous Epithelial Cells Occ /LPF Urine Amorphous Sediment Present /HPF Urine Bacteria 0 /HPF (0-FEW) Urine Mucus Slight /LPF Ionized Calcium 1.14 mmol/L (1.13-1.32) Test 03/17/19 06:00 03/17/19 06:33 03/17/19 08:23 03/17/19 08:30 O2 Saturation 100 % (92-99) Arterial Blood pH 7.40 (7.35-7.45) Arterial Blood pCO2 at Patient Temp 49 mmHg (35-46) Arterial Blood pO2 at Patient Temp 496 mmHg (75-108) Arterial Blood HCO3 30 mmol/L (21-28) Arterial Blood Base Excess 4 mmol/L (-3-3) FiO2 100 Glucose (Fingerstick) 89 mg/dL (70-99) 90 mg/dL (70-99) Vancomycin Level Trough 9.0 mcg/mL (10.0-20.0) Vancomycin Last Dose Date 03/16/19 Vancomycin Last Dose Time 2100 Test 03/17/19 10:09 03/17/19 11:40 03/17/19 11:50 03/17/19 12:00 Glucose (Fingerstick) 80 mg/dL (70-99) White Blood Count 7.3 x10^3/uL (4.0-11.0) Red Blood Count 4.06 x10^6/uL (4.30-5.70) Hemoglobin 12.3 g/dL (13.0-17.5) Hematocrit 36.9 % (39.0-53.0) Mean Corpuscular Volume 91 fL (79-100) Mean Corpuscular Hemoglobin 30 pg (25-35) Mean Corpuscular Hemoglobin Concent 33 g/dL (31-37) Red Cell Distribution Width 14.9 % (11.5-14.5) Platelet Count 106 x10^3/uL (140-400) Neutrophils (%) (Auto) 69 % (31-73) Lymphocytes (%) (Auto) 18 % (24-48) Monocytes (%) (Auto) 10 % (0-9) Eosinophils (%) (Auto) 2 % (0-3) Basophils (%) (Auto) 0 % (0-3) Neutrophils # (Auto) 5.0 x10^3/uL (1.8-7.7) Lymphocytes # (Auto) 1.4 x10^3/uL (1.0-4.8) Monocytes # (Auto) 0.7 x10^3/uL (0.0-1.1) Eosinophils # (Auto) 0.2 x10^3/uL (0.0-0.7) Basophils # (Auto) 0.0 x10^3/uL (0.0-0.2) Prothrombin Time 15.0 SEC (11.7-14.0) Prothromb Time International Ratio 1.2 (0.8-1.1) Activated Partial Thromboplast Time 31 SEC (24-38) Fibrinogen 851 mg/dL (200-440) Sodium Level 153 mmol/L (136-145) Potassium Level 3.6 mmol/L (3.5-5.1) Chloride Level 117 mmol/L (98-107) Carbon Dioxide Level 30 mmol/L (21-32) Anion Gap 6 (6-14) Blood Urea Nitrogen 14 mg/dL (8-26) Creatinine 0.5 mg/dL (0.7-1.3) Estimated GFR (Cockcroft-Gault) 182.3 Glucose Level 88 mg/dL (70-99) Lactic Acid Level 0.8 mmol/L (0.4-2.0) Calcium Level 8.3 mg/dL (8.5-10.1) Phosphorus Level 3.2 mg/dL (2.6-4.7) Magnesium Level 1.8 mg/dL (1.8-2.4) Total Bilirubin 0.4 mg/dL (0.2-1.0) Direct Bilirubin 0.2 mg/dL (0.0-0.2) Gamma Glutamyl Transpeptidase 78 U/L (10-85) Aspartate Amino Transf (AST/SGOT) 42 U/L (15-37) Alanine Aminotransferase (ALT/SGPT) 21 U/L (16-63) Alkaline Phosphatase 76 U/L (46-116) Lactate Dehydrogenase 376 U/L (85-227) Total Protein 6.9 g/dL (6.4-8.2) Albumin 2.5 g/dL (3.4-5.0) Amylase Level 217 U/L (25-115) Lipase 369 U/L (73-393) Ionized Calcium 1.13 mmol/L (1.13-1.32) O2 Saturation 100 % (92-99) Arterial Blood pH 7.39 (7.35-7.45) Arterial Blood pCO2 at Patient Temp 43 mmHg (35-46) Arterial Blood pO2 at Patient Temp 499 mmHg (75-108) Arterial Blood HCO3 25 mmol/L (21-28) Arterial Blood Base Excess 0 mmol/L (-3-3) FiO2 100 Microbiology 03/15/19 Blood Culture - Preliminary, Resulted NO GROWTH AFTER 1 DAY Medications Current Medications Fentanyl Citrate 30 ml @ 0 mls/hr CONT PRN IV SEE PROTOCOL; Start 03/14/19 at 06:30 Propofol 100 ml @ 0 mls/hr CONT PRN IV SEE PROTOCOL; Start 03/14/19 at 06:30 Fentanyl Citrate (Fentanyl 2ml Vial) 25 mcg PRN Q1HR PRN IV SEE COMMENTS; Start 03/14/19 at 06:30 Fentanyl Citrate (Fentanyl 2ml Vial) 50 mcg PRN Q1HR PRN IV SEE COMMENTS; Start 03/14/19 at 06:30 Chlorhexidine Gluconate (Peridex) 15 ml BID MM Last administered on 03/17/19at 09:24; Start 03/14/19 at 09:00 Morphine Sulfate (Morphine Sulfate) 2 mg PRN Q1HR PRN IV SEE COMMENTS.; Start 03/14/19 at 06:30 Morphine Sulfate (Morphine Sulfate) 4 mg PRN Q1HR PRN IV SEE COMMENTS.; Start 03/14/19 at 06:30 Ceftriaxone Sodium (Rocephin) 1 gm Q24H IVP Last administered on 03/15/19at 12:28; Start 03/14/19 at 11:00; Stop 03/15/19 at 18:24; Status DC Metronidazole 100 ml @ 100 mls/hr Q8HRS IV Last administered on 03/15/19at 14:16; Start 03/14/19 at 09:00; Stop 03/15/19 at 18:24; Status DC Fosphenytoin Sodium (Cerebyx) 100 mg Q8HRS IV Last administered on 03/17/19at 06:11; Start 03/14/19 at 09:00 Pantoprazole Sodium (PROTONIX VIAL for IV PUSH) 40 mg BID IVP Last administered on 03/17/19at 09:27; Start 03/14/19 at 09:00 Amino Acids/ Glycerin/ Electrolytes 1,000 ml @ 80 mls/hr [id number] IV Last administered on 03/16/19at 12:19; Start 03/14/19 at 08:45; Stop 03/17/19 at 00:24; Status DC Acetaminophen (Tylenol) 650 mg PRN Q6HRS PRN PO TEMP > 100.4F; Start 03/14/19 at 08:45 Acetaminophen (Tylenol Supp) 650 mg PRN Q4HRS PRN UT TEMP > 100.4F Last administered on 03/15/19at 18:50; Start 03/14/19 at 08:45 Aspirin (Ecotrin) 325 mg [id number] PO Last administered on 03/14/19at 09:14; Start 03/14/19 at 08:00; Stop 03/14/19 at 19:56; Status DC Aspirin (Aspirin Rectal Supp) 300 mg PRN DAILY PRN UT IF UNABLE TO TAKE PO; Start 03/14/19 at 08:45; Stop 03/14/19 at 19:56; Status DC Piperacillin Sod/ Tazobactam Sod 3.375 gm/Sodium Chloride 50 ml @ 100 mls/hr Q6HRS IV Last administered on 03/17/19at 06:11; Start 03/15/19 at 19:00 Vancomycin HCl 1 gm/Sodium Chloride 250 ml @ 250 mls/hr BID IV ; Start 03/15/19 at 21:00; Status UNV Vancomycin HCl (Vanco Per Pharmacy) 1 each PRN DAILY PRN MC SEE COMMENTS Last administered on 03/16/19at 09:00; Start 03/15/19 at 18:30 Vancomycin HCl 1 gm/Sodium Chloride 250 ml @ 250 mls/hr ONCE ONCE IV Last administered on 03/15/19at 21:12; Start 03/15/19 at 19:00; Stop 03/15/19 at 19:59; Status DC Info (CONTRAST GIVEN -- Rx MONITORING) 1 each PRN DAILY PRN MC SEE COMMENTS; Start 03/15/19 at 21:00; Stop 03/17/19 at 20:59; Status Cancel Vancomycin HCl 750 mg/Sodium Chloride 250 ml @ 250 mls/hr Q12H IV Last administered on 03/17/19at 00:03; Start 03/16/19 at 09:00; Stop 03/17/19 at 09:30; Status DC Vancomycin HCl (Vancomycin Trough Level) 1 each 1X ONCE MC Last administered on 03/17/19at 08:30; Start 03/17/19 at 08:30; Stop 03/17/19 at 08:39; Status DC Sodium Chloride 1,000 ml @ 80 mls/hr [id number] IV Last administered on 03/17/19at 00:30; Start 03/17/19 at 00:30 Vancomycin HCl 1 gm/Sodium Chloride 250 ml @ 250 mls/hr 1X ONCE IV Last administered on 03/17/19at 09:49; Start 03/17/19 at 10:00; Stop 03/17/19 at 10:59; Status DC Active Scripts Active Reported Phenytoin 50 Mg Tab.chew 75 Mg PO NOON Omeprazole 40 Mg Capsule.dr 40 Mg PO DAILY Phenytoin 50 Mg Tab.chew 100 Mg PO QHS Phenytoin 50 Mg Tab.chew 50 Mg PO DAILY08 Vitals/I & O Vital Sign - Last 24 Hours 03/16/19 03/16/19 03/16/19 03/16/19 14:00 14:04 15:00 15:15 Pulse 91 97 Resp 12 12 B/P (MAP) 99/71 (80) 108/72 (84) Pulse Ox 100 100 99 98 O2 Delivery Ventilator Ventilator Ventilator Ventilator 03/16/19 03/16/19 03/16/19 03/16/19 16:00 16:00 17:00 17:43 Temp 98.7 99.2 98.7 99.2 Pulse 100 101 Resp 12 12 B/P (MAP) 116/87 (97) 116/81 (93) Pulse Ox 97 97 97 O2 Delivery Ventilator Mechanical Ventilator Ventilator Ventilator 03/16/19 03/16/19 03/16/19 03/16/19 18:00 19:00 19:54 19:59 Temp 100.7 100.7 Pulse 102 100 Resp 16 12 B/P (MAP) 118/81 (93) 122/89 (100) Pulse Ox 98 99 98 O2 Delivery Ventilator Ventilator Mechanical Ventilator Ventilator 03/16/19 03/16/19 03/16/19 03/16/19 20:00 21:00 22:00 22:45 Pulse 98 96 100 96 Resp 12 12 12 B/P (MAP) 119/94 (102) 106/98 (101) 101/94 (96) 136/84 (101) Pulse Ox 99 99 99 O2 Delivery Ventilator Ventilator Ventilator 03/16/19 03/16/19 03/16/19 03/16/19 23:00 23:00 23:33 23:59 Pulse 100 95 Resp 12 B/P (MAP) 143/92 (109) 143/92 (109) Pulse Ox 99 100 O2 Delivery Ventilator Ventilator Mechanical Ventilator 03/17/19 03/17/19 03/17/19 03/17/19 00:00 00:01 01:00 01:00 Temp 99.7 99.7 Pulse 100 100 88 88 Resp 12 12 B/P (MAP) 146/86 (106) 146/86 (106) 159/84 (109) 159/84 (109) Pulse Ox 99 99 O2 Delivery Ventilator Ventilator 03/17/19 03/17/19 03/17/19 03/17/19 01:21 02:00 02:00 03:00 Pulse 87 88 89 Resp 12 12 B/P (MAP) 156/85 (108) 156/85 (108) 159/91 (113) Pulse Ox 100 99 99 O2 Delivery Ventilator Ventilator Ventilator 03/17/19 03/17/19 03/17/19 03/17/19 03:00 03:45 04:00 04:00 Temp 98.0 98.0 Pulse 88 87 Resp 12 B/P (MAP) 159/91 (113) 151/86 (107) Pulse Ox 100 99 O2 Delivery Ventilator Mechanical Ventilator Ventilator 03/17/19 03/17/19 03/17/19 03/17/19 04:00 05:00 05:00 05:38 Pulse 88 82 88 Resp 12 B/P (MAP) 151/86 (107) 159/86 (110) 159/86 (110) Pulse Ox 99 100 O2 Delivery Ventilator Ventilator 03/17/19 03/17/19 03/17/19 03/17/19 06:00 06:00 07:00 07:00 Temp 98.2 98.2 Pulse 95 88 88 100 Resp 12 12 B/P (MAP) 150/88 (108) 150/88 (108) 145/85 (105) 145/85 (105) Pulse Ox 100 100 O2 Delivery Ventilator Ventilator 03/17/19 03/17/19 03/17/19 03/17/19 07:35 08:06 08:10 09:00 Pulse 87 95 Resp 12 12 B/P (MAP) 160/91 (114) 147/89 (108) Pulse Ox 100 100 100 O2 Delivery Ventilator Ventilator Mechanical Ventilator Ventilator 03/17/19 03/17/19 03/17/19 03/17/19 09:17 10:07 11:06 11:11 Temp 98.8 98.8 Pulse 91 90 Resp 12 12 B/P (MAP) 148/85 (106) 157/88 (111) Pulse Ox 100 100 100 100 O2 Delivery Ventilator Ventilator Ventilator Ventilator 03/17/19 12:02 Pulse Ox 100 O2 Delivery Ventilator Intake and Output 03/16/19 03/16/19 03/17/19 15:00 23:00 07:00 Intake Total 300 ml 877 ml 780 ml Output Total 572 ml 982 ml 620 ml Balance -272 ml -105 ml 160 ml ROBBY SOLORZANO MD Mar 17, 2019 13:22
[2019-03-17] MEDS: VANCOMYCIN PER PHARMACY MC PRN (13:38)
--- NOTE | 2019-03-17 13:39 | NUR ---
Pharmacy Vancomycin Dosing Note S: Consulted to monitor and dose vancomycin started 03/15/19. O: FILES,JEANIE is a 44 year old M with Sepsis Other Antibiotics: ZOSYN 3.375G Q6H (03/15 - ) FLAGYL - D/C'D LABS: Last BUN: 14 Last Creatinine: 0.5 Creatinine Clearance: >100 mL/min Last WBC: 7.3 Last Procalcitonin: Tmax (past 24 hours): 102.9 Microbiology: - I/O: 1956/2405 Drug Levels: Last Trough level: 9 on 03/17/19 at 0830 Last dose given 03/15/19 at 2112 Vancomycin Dosing: Dosing Weight: Actual Target Trough: 15-20 A: Based on: trough P: 1. Dose vancomycin 1000mg IV 1x then change Vancomycin to 750 mg IV q8h 2. Pharmacy will continue to monitor, follow and adjust therapy as needed. Lizzy Merchant RPH, 03/17/19 [id number]
--- NOTE | 2019-03-17 13:44 | PDOC4 ---
PROCEDURE Procedure BRONCH BAL NO ENDOBRONCHIAL LESIONS NO PURULENT MATERIAL NO ERYTHMEA OR EDEMA OF AIRWAYS NORMAL SMALL AMOUNT OF THICK WHITE SECRETIONS ON RIGHT SIDE ALEX LYONS MD Mar 17, 2019 13:44
--- NOTE | 2019-03-17 13:53 | OP ---
DATE OF SURGERY: 03/17/2019 ATTENDING PHYSICIAN: Awais Leyva MD PROCEDURE: Bronchoscopy. INDICATIONS: The patient a possible organ donator candidate undergoing a bronchoscopy. Risks, benefits, and alternatives reviewed with the patient's family, they consented. DESCRIPTION OF PROCEDURE: A timeout was performed prior to sedation. Video timeout was performed prior to initiating the procedure. The patient had been sedated in the past with IV medication. The scope was passed through the orally, placed endotracheal tube. The endotracheal tube was properly positioned above the jovita. There was some white thick mucus in the right main stem bronchus. This was cleared away. There were no endobronchial lesions. There was no edema. There was no significant erythema. The scope was wedged into the right lower lobe segment and a bronchoalveolar lavage was performed. The same was done on the left. The return was slightly serosanguineous. There was no evidence of any purulent secretions. FINDINGS: 1. Properly positioned endotracheal tube. 2. No evidence of purulent secretions, no erythema or edema of the airways. 3. Minimal amount of normal appearing thick mucus within the airway. The patient tolerated procedure well with no immediate complications. PLAN: We will send out a BAL for routine analysis. ALEX LYONS MD DR: EVIE/quita JOB#: [id number] / [id number]
[2019-03-17 17:59] LABS: BASE EXCESS ABG -10 mmol/L (-3-3); HCO3 ABG 12 mmol/L (21-28); PO2 ABG 133 mmHg (75-108); SAT O2 ABG 98 % (92-99)
[2019-03-17 18:09] LABS: PCO2 ABG 18 mmHg (35-46)
[2019-03-17 18:30] LABS: BASE EXCESS ABG -1 mmol/L (-3-3); HCO3 ABG 24 mmol/L (21-28); PCO2 ABG 42 mmHg (35-46); PO2 ABG 456 mmHg (75-108); SAT O2 ABG 100 % (92-99)
[2019-03-17 18:35] LABS: FIO2 ABG 100
--- NOTE | 2019-03-17 18:40 | NUR ---
Patient has cough, no gag. Pupils fixed, no corneal reaction, no sedation. Reaction to deep pain. MTN on site. Family at bedside. Will continue to monitor patient.
[2019-03-17 19:00] LABS: BASO % 0 % (0-3); EOS # 0.2 x10^3/uL (0.0-0.7); EOS % 2 % (0-3); HEMATOCRIT 37.7 % (39.0-53.0); HEMOGLOBIN 12.2 g/dL (13.0-17.5); LYMPH # 1.1 x10^3/uL (1.0-4.8); LYMPH % 16 % (24-48); MEAN CORPUSCULAR HEMOGLOBIN 30 pg (25-35); MEAN CORPUSCULAR HGB CONC 32 g/dL (31-37); MEAN CORPUSCULAR VOLUME 91 fL (79-100); MONO # 0.9 x10^3/uL (0.0-1.1); MONO % 12 % (0-9); NEUT # 5.1 x10^3/uL (1.8-7.7); NEUT % 70 % (31-73); PLATELET COUNT 111 x10^3/uL (140-400); RED BLOOD COUNT 4.13 x10^6/uL (4.30-5.70); RED CELL DISTRIBUTION WIDTH 14.8 % (11.5-14.5); WHITE BLOOD COUNT 7.3 x10^3/uL (4.0-11.0)
[2019-03-17 19:13] LABS: ALBUMIN 2.6 g/dL (3.4-5.0); CALCIUM 8.5 mg/dL (8.5-10.1); CREATININE 0.7 mg/dL (0.7-1.3); DIRECT BILIRUBIN 0.1 mg/dL (0.0-0.2); GFR 123.7; MAGNESIUM 1.8 mg/dL (1.8-2.4); PHOSPHORUS 4.1 mg/dL (2.6-4.7); TOTAL BILIRUBIN 0.7 mg/dL (0.2-1.0); TOTAL PROTEIN 7.2 g/dL (6.4-8.2)
[2019-03-17 19:15] LABS: PROTHROMBIN TIME PATIENT 15.1 SEC (11.7-14.0)
[2019-03-17 19:31] LABS: BASE EXCESS ABG -1 mmol/L (-3-3); HCO3 ABG 25 mmol/L (21-28); PCO2 ABG 41 mmHg (35-46); PO2 ABG 108 mmHg (75-108); SAT O2 ABG 98 % (92-99)
[2019-03-17 21:07] LABS: FIO2 ABG 40
--- NOTE | 2019-03-17 22:09 | RAD ---
AP chest x-ray HISTORY: Organ donation, lung program and. FINDINGS: Nasogastric tube tip left upper quadrant region of the gastric cardia. Left jugular central venous catheter tip general radiographic region of the brachiocephalic vein. Endotracheal tube tip 4 cm above the jovita. Heart size normal. Small caliber left pleural catheter, no sizable left pneumothorax evident. Indistinct heterogeneous opacity at the right medial lung bases similar the prior x-ray seen to better detail on recent CT imaging earlier today. No pleural effusions. IMPRESSION: Lines and tubes as described above. Stable atelectasis/infiltrate of the right medial lung base. Electronically signed by: Pola Rascon MD (03/17/2019 10:06 PM) [facility]
[2019-03-18] VITALS (12 sets, daily range): BP systolic 123–137; BP diastolic 72–82
[2019-03-18 00:07] LABS: HEMOGLOBIN A1C 5.2 % (4.8-5.6)
[2019-03-18] MEDS: PIPERACILLIN/TAZOBACTAM 3.375 GM in IV NORMAL SALINE 50ML 50 ML IV SCH ×3 (00:08→12:04)
[2019-03-18] MEDS ORDERED: ALTEPLASE 1MG SYRINGE. INT CAT ONE ×2 (01:00→02:30)
[2019-03-18 01:14] LABS: BASO % 1 % (0-3); EOS # 0.2 x10^3/uL (0.0-0.7); EOS % 3 % (0-3); HEMATOCRIT 36.1 % (39.0-53.0); HEMOGLOBIN 11.9 g/dL (13.0-17.5); LYMPH # 1.2 x10^3/uL (1.0-4.8); LYMPH % 18 % (24-48); MEAN CORPUSCULAR HEMOGLOBIN 30 pg (25-35); MEAN CORPUSCULAR HGB CONC 33 g/dL (31-37); MEAN CORPUSCULAR VOLUME 91 fL (79-100); MONO # 0.9 x10^3/uL (0.0-1.1); MONO % 12 % (0-9); NEUT # 4.8 x10^3/uL (1.8-7.7); NEUT % 67 % (31-73); PLATELET COUNT 102 x10^3/uL (140-400); RED BLOOD COUNT 3.97 x10^6/uL (4.30-5.70); RED CELL DISTRIBUTION WIDTH 14.8 % (11.5-14.5); WHITE BLOOD COUNT 7.1 x10^3/uL (4.0-11.0)
[2019-03-18 01:25] LABS: PROTHROMBIN TIME PATIENT 16.1 SEC (11.7-14.0)
[2019-03-18 01:28] LABS: ALBUMIN 2.5 g/dL (3.4-5.0); CALCIUM 8.8 mg/dL (8.5-10.1); CREATININE 0.8 mg/dL (0.7-1.3); DIRECT BILIRUBIN 0.3 mg/dL (0.0-0.2); PHOSPHORUS 4.1 mg/dL (2.6-4.7); POTASSIUM 3.6 mmol/L (3.5-5.1); TOTAL BILIRUBIN 0.5 mg/dL (0.2-1.0); TOTAL PROTEIN 6.9 g/dL (6.4-8.2)
[2019-03-18] MEDS: VANCOMYCIN 750 MG in IV NORMAL SALINE 250ML 250 ML IV SCH ×2 (02:23→09:41)
[2019-03-18] MEDS: IV NORMAL SALINE 1000ML BAG 1,000 ML IV SCH (02:24)
[2019-03-18 04:32] LABS: BASE EXCESS ABG 1 mmol/L (-3-3); FIO2 ABG 100; HCO3 ABG 26 mmol/L (21-28); PCO2 ABG 44 mmHg (35-46); PO2 ABG 387 mmHg (75-108); SAT O2 ABG 99 % (92-99)
--- NOTE | 2019-03-18 04:57 | PN ---
DATE: 03/17/2019 SUBJECTIVE: The patient continues to be on mechanical ventilation, maintaining his oxygen saturation 100% on FiO2 of 100%. He continues to be on piperacillin and vancomycin as well as Protonix and fosphenytoin. [facility] are planning to harvest kidneys, liver and lungs. PHYSICAL EXAMINATION: GENERAL: When I examined him, he was resting, slightly propped up in bed, continued to be on mechanical ventilation, examined him looked pale, but no jaundice, cyanosis or thyromegaly. No jugular venous distention. No lower limb edema. VITAL SIGNS: His heart rate was 91, blood pressure 148/85, temperature was 98.2, respiratory rate was 12 and oxygen saturation was 100%. HEAD, EYES, EARS, NOSE AND THROAT: Showed normocephalic, atraumatic. He has orotracheal and orogastric tube in place. NECK: Supple. HEART: Showed normal first and second heart sounds. No gallop or murmur. CHEST: Clear to auscultation. No crepitation or rhonchi. ABDOMEN: Distended, soft, nontender. NEUROLOGIC: He is encephalopathic, nonverbal, does not open his eyes spontaneously nor does respond to verbal or painful stimuli. His intake over the last 24 hours was 1900, output was 2677. LABORATORY DATA: His lab work this morning showed a white cell count 7600, hemoglobin 12.7, hematocrit 38, MCV 91, and platelet count of 112,000. His chemistry showed a serum sodium 154, potassium 3.5, chloride 116, bicarbonate 31, anion gap of 7, BUN 13, creatinine 0.5, estimated GFR was 182 mL per minute, his glucose 112, calcium was 8.3. Total bilirubin, AST, ALT, alkaline phosphatase were normal. ASSESSMENT: 1. Acute respiratory failure, multifactorial. 2. Sepsis syndrome. 3. 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 4. Cerebral palsy. 5. Epilepsy. 6. Possible aspiration pneumonia. PLAN: Plan is to continue with mechanical ventilation. The family is deciding to withdraw care this afternoon and [facility] are involved within harvesting the kidneys, liver and lungs. CAREY BURTON MD DR: ELE/quita JOB#: [id number] / [id number]
[2019-03-18] MEDS: FOSPHENYTOIN 100 MG/2 ML VIAL. IV SCH (05:57)
[2019-03-18 06:57] LABS: BASO % 0 % (0-3); EOS # 0.2 x10^3/uL (0.0-0.7); EOS % 3 % (0-3); HEMATOCRIT 34.8 % (39.0-53.0); HEMOGLOBIN 11.3 g/dL (13.0-17.5); LYMPH # 1.3 x10^3/uL (1.0-4.8); LYMPH % 20 % (24-48); MEAN CORPUSCULAR HEMOGLOBIN 30 pg (25-35); MEAN CORPUSCULAR HGB CONC 32 g/dL (31-37); MEAN CORPUSCULAR VOLUME 92 fL (79-100); MONO # 0.8 x10^3/uL (0.0-1.1); MONO % 11 % (0-9); NEUT # 4.4 x10^3/uL (1.8-7.7); NEUT % 66 % (31-73); PLATELET COUNT 97 x10^3/uL (140-400); RED CELL DISTRIBUTION WIDTH 14.7 % (11.5-14.5); WHITE BLOOD COUNT 6.7 x10^3/uL (4.0-11.0)
[2019-03-18 07:02] LABS: ALBUMIN 2.4 g/dL (3.4-5.0); CALCIUM 8.4 mg/dL (8.5-10.1); CREATININE 0.7 mg/dL (0.7-1.3); DIRECT BILIRUBIN 0.2 mg/dL (0.0-0.2); GFR 123.7; PHOSPHORUS 3.4 mg/dL (2.6-4.7); POTASSIUM 3.3 mmol/L (3.5-5.1); TOTAL BILIRUBIN 0.5 mg/dL (0.2-1.0); TOTAL PROTEIN 6.8 g/dL (6.4-8.2)
[2019-03-18 07:14] LABS: PROTHROMBIN TIME PATIENT 15.6 SEC (11.7-14.0)
--- NOTE | 2019-03-18 08:59 | PDOC ---
Provider Note Provider Note Awaiting organ transplantation ROBBY SOLORZANO MD Mar 18, 2019 08:59
[2019-03-18] MEDS: PANTOPRAZOLE IV PUSH 40 MG VIAL. IVP SCH (09:36)
[2019-03-18] MEDS: CHLORHEXIDINE 0.12% 15 ML MOUTHWASH. MM SCH (09:37)
--- NOTE | 2019-03-18 10:12 | PN ---
DATE: 03/18/2019 SUBJECTIVE: The patient continued to be intubated, mechanically ventilated. The transplant team is waiting for surgeon to harvest the organs and apparently none of the surgeons available so far. PHYSICAL EXAMINATION: GENERAL: When I examined him, he looked pale, cachectic, but no jaundice, cyanosis or thyromegaly. No jugular venous distension. No lower limb edema. VITAL SIGNS: His heart rate was 88, blood pressure was 137/80, temperature was 98.3, respiratory rate was 12, and oxygen saturation was 100% on FiO2 of 100%. HEAD, EYES, EARS, NOSE AND THROAT: Showed normocephalic, atraumatic. He has orotracheal and orogastric tube in place. NECK: Supple. HEART: Showed normal first and second heart sounds. No gallop or murmur. CHEST: Clear to auscultation. No crepitation or rhonchi. ABDOMEN: Scaphoid, soft, nontender. NEUROLOGIC: He is encephalopathic. His intake over the last 24 hours was 2000, output was 2400. LABORATORY DATA: His lab work this morning showed a white cell count 6700, hemoglobin 11, hematocrit 34, MCV 92, and platelet count of 97,000. His prothrombin time was 15.6, INR 1.3, aPTT was 29 and fibrinogen was 881. Blood gas showed a pH of 7.39, pCO2 of 44, pO2 387, bicarbonate 26, oxygen saturation was 99% on FiO2 of 100%. His chemistry showed a serum sodium 158, potassium 3.3, chloride 120, bicarbonate 29, anion gap of 9, BUN 16, creatinine 0.7, estimated GFR was 123 mL per minute. His glucose was 104, calcium was 8.4. His phosphorus was 3.4, magnesium 2. His total bilirubin and alkaline phosphatase is normal. AST, ALT are slightly elevated. Lactate dehydrogenase was high. Total protein was 6.8, albumin 2.4. Amylase and lipase were normal. ASSESSMENT: 1. Acute respiratory failure, multifactorial. 2. Sepsis syndrome. 3. Large middle cerebral artery territory infarct. 4. Cerebral palsy. 5. Epilepsy, on phenytoin. 6. Possible aspiration pneumonia. PLAN: To continue with mechanical ventilation. His IV fluid was switched to D5W to correct his hypernatremia and apparently we are waiting for the surgeon approve for organ harvesting before pronouncing him . CAREY BURTON MD DR: Josh JOB#: [id number] / [id number]
[2019-03-18 10:35] LABS: BILIRUBIN,URINE NEGATIVE (NEG); CLARITY,URINE CLEAR; COLOR,URINE YELLOW; NITRITE,URINE NEGATIVE (NEG); PROTEIN,URINE NEGATIVE (NEG-TRACE); UROBILINOGEN,URINE 0.2 mg/dL (0.2 mg/dL)
[2019-03-18 10:44] LABS: BACTERIA,URINE 0 /HPF (0-FEW); RBC,URINE 0 /HPF (0-2); WBC,URINE 0 /HPF (0-4)
--- NOTE | 2019-03-18 10:53 | PDOC ---
PULMONARY PROGRESS NOTES Subjective ON VENT AC MODE Vitals Vital Signs Date Time Temp Pulse Resp B/P (MAP) Pulse Ox O2 Delivery O2 Flow Rate FiO2 03/18/19 10:00 98.6 92 12 132/81 (98) 98 Ventilator 98.6 Lungs: Clear Cardiovascular: S1, S2 Abdomen: Soft Extremities: Other (NO CHANGE) Labs Laboratory Tests Test 03/16/19 23:32 03/16/19 23:40 03/17/19 01:30 03/17/19 05:50 O2 Saturation 100 % (92-99) Arterial Blood pH 7.41 (7.35-7.45) Arterial Blood pCO2 at Patient Temp 48 mmHg (35-46) Arterial Blood pO2 at Patient Temp 458 mmHg (75-108) Arterial Blood HCO3 30 mmol/L (21-28) Arterial Blood Base Excess 4 mmol/L (-3-3) FiO2 100 White Blood Count 8.4 x10^3/uL (4.0-11.0) 7.6 x10^3/uL (4.0-11.0) Red Blood Count 4.51 x10^6/uL (4.30-5.70) 4.24 x10^6/uL (4.30-5.70) Hemoglobin 13.3 g/dL (13.0-17.5) 12.7 g/dL (13.0-17.5) Hematocrit 40.9 % (39.0-53.0) 38.4 % (39.0-53.0) Mean Corpuscular Volume 91 fL (79-100) 91 fL (79-100) Mean Corpuscular Hemoglobin 30 pg (25-35) 30 pg (25-35) Mean Corpuscular Hemoglobin Concent 33 g/dL (31-37) 33 g/dL (31-37) Red Cell Distribution Width 14.8 % (11.5-14.5) 14.8 % (11.5-14.5) Platelet Count 124 x10^3/uL (140-400) 112 x10^3/uL (140-400) Neutrophils (%) (Auto) 70 % (31-73) Lymphocytes (%) (Auto) 20 % (24-48) Monocytes (%) (Auto) 9 % (0-9) Eosinophils (%) (Auto) 1 % (0-3) Basophils (%) (Auto) 0 % (0-3) Neutrophils # (Auto) 5.9 x10^3/uL (1.8-7.7) Lymphocytes # (Auto) 1.6 x10^3/uL (1.0-4.8) Monocytes # (Auto) 0.8 x10^3/uL (0.0-1.1) Eosinophils # (Auto) 0.1 x10^3/uL (0.0-0.7) Basophils # (Auto) 0.0 x10^3/uL (0.0-0.2) Prothrombin Time 15.5 SEC (11.7-14.0) 15.3 SEC (11.7-14.0) Prothromb Time International Ratio 1.3 (0.8-1.1) 1.2 (0.8-1.1) Activated Partial Thromboplast Time 32 SEC (24-38) 32 SEC (24-38) Fibrinogen 902 mg/dL (200-440) 910 mg/dL (200-440) Sodium Level 152 mmol/L (136-145) 154 mmol/L (136-145) Potassium Level 3.8 mmol/L (3.5-5.1) 3.5 mmol/L (3.5-5.1) Chloride Level 115 mmol/L (98-107) 116 mmol/L (98-107) Carbon Dioxide Level 31 mmol/L (21-32) 31 mmol/L (21-32) Anion Gap 6 (6-14) 7 (6-14) Blood Urea Nitrogen 13 mg/dL (8-26) 13 mg/dL (8-26) Creatinine 0.6 mg/dL (0.7-1.3) 0.5 mg/dL (0.7-1.3) Estimated GFR (Cockcroft-Gault) 147.8 182.3 Glucose Level 136 mg/dL (70-99) 112 mg/dL (70-99) Lactic Acid Level 1.0 mmol/L (0.4-2.0) 0.9 mmol/L (0.4-2.0) Calcium Level 9.1 mg/dL (8.5-10.1) 8.3 mg/dL (8.5-10.1) Phosphorus Level 3.1 mg/dL (2.6-4.7) 2.9 mg/dL (2.6-4.7) Magnesium Level 2.0 mg/dL (1.8-2.4) 1.9 mg/dL (1.8-2.4) Total Bilirubin 0.4 mg/dL (0.2-1.0) 0.4 mg/dL (0.2-1.0) Direct Bilirubin 0.1 mg/dL (0.0-0.2) 0.1 mg/dL (0.0-0.2) Gamma Glutamyl Transpeptidase 69 U/L (10-85) 84 U/L (10-85) Aspartate Amino Transf (AST/SGOT) 32 U/L (15-37) 36 U/L (15-37) Alanine Aminotransferase (ALT/SGPT) 21 U/L (16-63) 22 U/L (16-63) Alkaline Phosphatase 80 U/L (46-116) 79 U/L (46-116) Lactate Dehydrogenase 395 U/L (85-227) 387 U/L (85-227) Total Protein 7.6 g/dL (6.4-8.2) 6.5 g/dL (6.4-8.2) Albumin 2.7 g/dL (3.4-5.0) 2.7 g/dL (3.4-5.0) Amylase Level 210 U/L (25-115) 234 U/L (25-115) Lipase 381 U/L (73-393) 443 U/L (73-393) Urine Collection Type Unknown Urine Color Yellow Urine Clarity Clear Urine pH 5.5 Urine Specific [place] 1.020 Urine Protein Negative mg/dL (NEG-TRACE) Urine Glucose (UA) Negative mg/dL (NEG) Urine Ketones (Stick) Negative mg/dL (NEG) Urine Blood Negative (NEG) Urine Nitrite Negative (NEG) Urine Bilirubin Negative (NEG) Urine Urobilinogen Dipstick 0.2 mg/dL (0.2 mg/dL) Urine Leukocyte Esterase Negative (NEG) Urine RBC Rare /HPF (0-2) Urine WBC Rare /HPF (0-4) Urine Squamous Epithelial Cells Occ /LPF Urine Amorphous Sediment Present /HPF Urine Bacteria 0 /HPF (0-FEW) Urine Mucus Slight /LPF Hemoglobin A1c 5.2 % (4.8-5.6) Ionized Calcium 1.14 mmol/L (1.13-1.32) Test 03/17/19 06:00 03/17/19 06:33 03/17/19 08:23 03/17/19 08:30 O2 Saturation 100 % (92-99) Arterial Blood pH 7.40 (7.35-7.45) Arterial Blood pCO2 at Patient Temp 49 mmHg (35-46) Arterial Blood pO2 at Patient Temp 496 mmHg (75-108) Arterial Blood HCO3 30 mmol/L (21-28) Arterial Blood Base Excess 4 mmol/L (-3-3) FiO2 100 Glucose (Fingerstick) 89 mg/dL (70-99) 90 mg/dL (70-99) Vancomycin Level Trough 9.0 mcg/mL (10.0-20.0) Vancomycin Last Dose Date 03/16/19 Vancomycin Last Dose Time 2100 Test 03/17/19 10:09 03/17/19 11:40 03/17/19 11:50 03/17/19 12:00 Glucose (Fingerstick) 80 mg/dL (70-99) White Blood Count 7.3 x10^3/uL (4.0-11.0) Red Blood Count 4.06 x10^6/uL (4.30-5.70) Hemoglobin 12.3 g/dL (13.0-17.5) Hematocrit 36.9 % (39.0-53.0) Mean Corpuscular Volume 91 fL (79-100) Mean Corpuscular Hemoglobin 30 pg (25-35) Mean Corpuscular Hemoglobin Concent 33 g/dL (31-37) Red Cell Distribution Width 14.9 % (11.5-14.5) Platelet Count 106 x10^3/uL (140-400) Neutrophils (%) (Auto) 69 % (31-73) Lymphocytes (%) (Auto) 18 % (24-48) Monocytes (%) (Auto) 10 % (0-9) Eosinophils (%) (Auto) 2 % (0-3) Basophils (%) (Auto) 0 % (0-3) Neutrophils # (Auto) 5.0 x10^3/uL (1.8-7.7) Lymphocytes # (Auto) 1.4 x10^3/uL (1.0-4.8) Monocytes # (Auto) 0.7 x10^3/uL (0.0-1.1) Eosinophils # (Auto) 0.2 x10^3/uL (0.0-0.7) Basophils # (Auto) 0.0 x10^3/uL (0.0-0.2) Prothrombin Time 15.0 SEC (11.7-14.0) Prothromb Time International Ratio 1.2 (0.8-1.1) Activated Partial Thromboplast Time 31 SEC (24-38) Fibrinogen 851 mg/dL (200-440) Sodium Level 153 mmol/L (136-145) Potassium Level 3.6 mmol/L (3.5-5.1) Chloride Level 117 mmol/L (98-107) Carbon Dioxide Level 30 mmol/L (21-32) Anion Gap 6 (6-14) Blood Urea Nitrogen 14 mg/dL (8-26) Creatinine 0.5 mg/dL (0.7-1.3) Estimated GFR (Cockcroft-Gault) 182.3 Glucose Level 88 mg/dL (70-99) Lactic Acid Level 0.8 mmol/L (0.4-2.0) Calcium Level 8.3 mg/dL (8.5-10.1) Phosphorus Level 3.2 mg/dL (2.6-4.7) Magnesium Level 1.8 mg/dL (1.8-2.4) Total Bilirubin 0.4 mg/dL (0.2-1.0) Direct Bilirubin 0.2 mg/dL (0.0-0.2) Gamma Glutamyl Transpeptidase 78 U/L (10-85) Aspartate Amino Transf (AST/SGOT) 42 U/L (15-37) Alanine Aminotransferase (ALT/SGPT) 21 U/L (16-63) Alkaline Phosphatase 76 U/L (46-116) Lactate Dehydrogenase 376 U/L (85-227) Total Protein 6.9 g/dL (6.4-8.2) Albumin 2.5 g/dL (3.4-5.0) Amylase Level 217 U/L (25-115) Lipase 369 U/L (73-393) Ionized Calcium 1.13 mmol/L (1.13-1.32) O2 Saturation 100 % (92-99) Arterial Blood pH 7.39 (7.35-7.45) Arterial Blood pCO2 at Patient Temp 43 mmHg (35-46) Arterial Blood pO2 at Patient Temp 499 mmHg (75-108) Arterial Blood HCO3 25 mmol/L (21-28) Arterial Blood Base Excess 0 mmol/L (-3-3) FiO2 100 Test 03/17/19 13:25 03/17/19 16:08 03/17/19 17:50 03/17/19 18:06 Glucose (Fingerstick) 74 mg/dL (70-99) 79 mg/dL (70-99) White Blood Count 7.3 x10^3/uL (4.0-11.0) Red Blood Count 4.13 x10^6/uL (4.30-5.70) Hemoglobin 12.2 g/dL (13.0-17.5) Hematocrit 37.7 % (39.0-53.0) Mean Corpuscular Volume 91 fL (79-100) Mean Corpuscular Hemoglobin 30 pg (25-35) Mean Corpuscular Hemoglobin Concent 32 g/dL (31-37) Red Cell Distribution Width 14.8 % (11.5-14.5) Platelet Count 111 x10^3/uL (140-400) Neutrophils (%) (Auto) 70 % (31-73) Lymphocytes (%) (Auto) 16 % (24-48) Monocytes (%) (Auto) 12 % (0-9) Eosinophils (%) (Auto) 2 % (0-3) Basophils (%) (Auto) 0 % (0-3) Neutrophils # (Auto) 5.1 x10^3/uL (1.8-7.7) Lymphocytes # (Auto) 1.1 x10^3/uL (1.0-4.8) Monocytes # (Auto) 0.9 x10^3/uL (0.0-1.1) Eosinophils # (Auto) 0.2 x10^3/uL (0.0-0.7) Basophils # (Auto) 0.0 x10^3/uL (0.0-0.2) Prothrombin Time 15.1 SEC (11.7-14.0) Prothromb Time International Ratio 1.2 (0.8-1.1) Activated Partial Thromboplast Time 31 SEC (24-38) Fibrinogen 918 mg/dL (200-440) Sodium Level 157 mmol/L (136-145) Potassium Level 4.0 mmol/L (3.5-5.1) Chloride Level 117 mmol/L (98-107) Carbon Dioxide Level 29 mmol/L (21-32) Anion Gap 11 (6-14) Blood Urea Nitrogen 14 mg/dL (8-26) Creatinine 0.7 mg/dL (0.7-1.3) Estimated GFR (Cockcroft-Gault) 123.7 Glucose Level 93 mg/dL (70-99) Calcium Level 8.5 mg/dL (8.5-10.1) Phosphorus Level 4.1 mg/dL (2.6-4.7) Magnesium Level 1.8 mg/dL (1.8-2.4) Total Bilirubin 0.7 mg/dL (0.2-1.0) Direct Bilirubin 0.1 mg/dL (0.0-0.2) Gamma Glutamyl Transpeptidase 104 U/L (10-85) Aspartate Amino Transf (AST/SGOT) 52 U/L (15-37) Alanine Aminotransferase (ALT/SGPT) 21 U/L (16-63) Alkaline Phosphatase 79 U/L (46-116) Lactate Dehydrogenase 461 U/L (85-227) Total Protein 7.2 g/dL (6.4-8.2) Albumin 2.6 g/dL (3.4-5.0) Amylase Level 236 U/L (25-115) Lipase 420 U/L (73-393) O2 Saturation 98 % (92-99) Arterial Blood pH 7.45 (7.35-7.45) Arterial Blood pCO2 at Patient Temp 18 mmHg (35-46) Arterial Blood pO2 at Patient Temp 133 mmHg (75-108) Arterial Blood HCO3 12 mmol/L (21-28) Arterial Blood Base Excess -10 mmol/L (-3-3) Test 03/17/19 18:13 03/17/19 18:25 03/17/19 19:15 03/17/19 19:58 Glucose (Fingerstick) 89 mg/dL (70-99) 75 mg/dL (70-99) O2 Saturation 100 % (92-99) 98 % (92-99) Arterial Blood pH 7.38 (7.35-7.45) 7.39 (7.35-7.45) Arterial Blood pCO2 at Patient Temp 42 mmHg (35-46) 41 mmHg (35-46) Arterial Blood pO2 at Patient Temp 456 mmHg (75-108) 108 mmHg (75-108) Arterial Blood HCO3 24 mmol/L (21-28) 25 mmol/L (21-28) Arterial Blood Base Excess -1 mmol/L (-3-3) -1 mmol/L (-3-3) FiO2 100 40 Test 03/17/19 21:57 03/17/19 23:52 03/18/19 01:00 03/18/19 01:54 Glucose (Fingerstick) 85 mg/dL (70-99) 93 mg/dL (70-99) 89 mg/dL (70-99) White Blood Count 7.1 x10^3/uL (4.0-11.0) Red Blood Count 3.97 x10^6/uL (4.30-5.70) Hemoglobin 11.9 g/dL (13.0-17.5) Hematocrit 36.1 % (39.0-53.0) Mean Corpuscular Volume 91 fL (79-100) Mean Corpuscular Hemoglobin 30 pg (25-35) Mean Corpuscular Hemoglobin Concent 33 g/dL (31-37) Red Cell Distribution Width 14.8 % (11.5-14.5) Platelet Count 102 x10^3/uL (140-400) Neutrophils (%) (Auto) 67 % (31-73) Lymphocytes (%) (Auto) 18 % (24-48) Monocytes (%) (Auto) 12 % (0-9) Eosinophils (%) (Auto) 3 % (0-3) Basophils (%) (Auto) 1 % (0-3) Neutrophils # (Auto) 4.8 x10^3/uL (1.8-7.7) Lymphocytes # (Auto) 1.2 x10^3/uL (1.0-4.8) Monocytes # (Auto) 0.9 x10^3/uL (0.0-1.1) Eosinophils # (Auto) 0.2 x10^3/uL (0.0-0.7) Basophils # (Auto) 0.0 x10^3/uL (0.0-0.2) Prothrombin Time 16.1 SEC (11.7-14.0) Prothromb Time International Ratio 1.3 (0.8-1.1) Activated Partial Thromboplast Time 32 SEC (24-38) Fibrinogen 864 mg/dL (200-440) Sodium Level 156 mmol/L (136-145) Potassium Level 3.6 mmol/L (3.5-5.1) Chloride Level 119 mmol/L (98-107) Carbon Dioxide Level 29 mmol/L (21-32) Anion Gap 8 (6-14) Blood Urea Nitrogen 17 mg/dL (8-26) Creatinine 0.8 mg/dL (0.7-1.3) Estimated GFR (Cockcroft-Gault) 106.0 Glucose Level 111 mg/dL (70-99) Lactic Acid Level 1.4 mmol/L (0.4-2.0) Calcium Level 8.8 mg/dL (8.5-10.1) Ionized Calcium 1.16 mmol/L (1.13-1.32) Phosphorus Level 4.1 mg/dL (2.6-4.7) Total Bilirubin 0.5 mg/dL (0.2-1.0) Direct Bilirubin 0.3 mg/dL (0.0-0.2) Gamma Glutamyl Transpeptidase 131 U/L (10-85) Aspartate Amino Transf (AST/SGOT) 49 U/L (15-37) Alanine Aminotransferase (ALT/SGPT) 21 U/L (16-63) Alkaline Phosphatase 78 U/L (46-116) Lactate Dehydrogenase 366 U/L (85-227) Total Protein 6.9 g/dL (6.4-8.2) Albumin 2.5 g/dL (3.4-5.0) Amylase Level 206 U/L (25-115) Lipase 360 U/L (73-393) Test 03/18/19 03:51 03/18/19 04:00 03/18/19 06:00 03/18/19 06:02 Glucose (Fingerstick) 87 mg/dL (70-99) 68 mg/dL (70-99) O2 Saturation 99 % (92-99) Arterial Blood pH 7.39 (7.35-7.45) Arterial Blood pCO2 at Patient Temp 44 mmHg (35-46) Arterial Blood pO2 at Patient Temp 387 mmHg (75-108) Arterial Blood HCO3 26 mmol/L (21-28) Arterial Blood Base Excess 1 mmol/L (-3-3) FiO2 100 White Blood Count 6.7 x10^3/uL (4.0-11.0) Red Blood Count 3.80 x10^6/uL (4.30-5.70) Hemoglobin 11.3 g/dL (13.0-17.5) Hematocrit 34.8 % (39.0-53.0) Mean Corpuscular Volume 92 fL (79-100) Mean Corpuscular Hemoglobin 30 pg (25-35) Mean Corpuscular Hemoglobin Concent 32 g/dL (31-37) Red Cell Distribution Width 14.7 % (11.5-14.5) Platelet Count 97 x10^3/uL (140-400) Neutrophils (%) (Auto) 66 % (31-73) Lymphocytes (%) (Auto) 20 % (24-48) Monocytes (%) (Auto) 11 % (0-9) Eosinophils (%) (Auto) 3 % (0-3) Basophils (%) (Auto) 0 % (0-3) Neutrophils # (Auto) 4.4 x10^3/uL (1.8-7.7) Lymphocytes # (Auto) 1.3 x10^3/uL (1.0-4.8) Monocytes # (Auto) 0.8 x10^3/uL (0.0-1.1) Eosinophils # (Auto) 0.2 x10^3/uL (0.0-0.7) Basophils # (Auto) 0.0 x10^3/uL (0.0-0.2) Prothrombin Time 15.6 SEC (11.7-14.0) Prothromb Time International Ratio 1.3 (0.8-1.1) Activated Partial Thromboplast Time 29 SEC (24-38) Fibrinogen 881 mg/dL (200-440) Sodium Level 158 mmol/L (136-145) Potassium Level 3.3 mmol/L (3.5-5.1) Chloride Level 120 mmol/L (98-107) Carbon Dioxide Level 29 mmol/L (21-32) Anion Gap 9 (6-14) Blood Urea Nitrogen 16 mg/dL (8-26) Creatinine 0.7 mg/dL (0.7-1.3) Estimated GFR (Cockcroft-Gault) 123.7 Glucose Level 104 mg/dL (70-99) Lactic Acid Level 1.2 mmol/L (0.4-2.0) Calcium Level 8.4 mg/dL (8.5-10.1) Ionized Calcium 1.14 mmol/L (1.13-1.32) Phosphorus Level 3.4 mg/dL (2.6-4.7) Magnesium Level 2.0 mg/dL (1.8-2.4) Total Bilirubin 0.5 mg/dL (0.2-1.0) Direct Bilirubin 0.2 mg/dL (0.0-0.2) Gamma Glutamyl Transpeptidase 137 U/L (10-85) Aspartate Amino Transf (AST/SGOT) 50 U/L (15-37) Alanine Aminotransferase (ALT/SGPT) 19 U/L (16-63) Alkaline Phosphatase 77 U/L (46-116) Lactate Dehydrogenase 367 U/L (85-227) Total Protein 6.8 g/dL (6.4-8.2) Albumin 2.4 g/dL (3.4-5.0) Amylase Level 173 U/L (25-115) Lipase 277 U/L (73-393) Test 03/18/19 06:14 03/18/19 07:56 03/18/19 08:43 03/18/19 10:12 Glucose (Fingerstick) 79 mg/dL (70-99) 70 mg/dL (70-99) 98 mg/dL (70-99) Urine Collection Type Unknown Urine Color Yellow Urine Clarity Clear Urine pH 5.0 Urine Specific [place] 1.020 Urine Protein Negative mg/dL (NEG-TRACE) Urine Glucose (UA) Negative mg/dL (NEG) Urine Ketones (Stick) Negative mg/dL (NEG) Urine Blood Negative (NEG) Urine Nitrite Negative (NEG) Urine Bilirubin Negative (NEG) Urine Urobilinogen Dipstick 0.2 mg/dL (0.2 mg/dL) Urine Leukocyte Esterase Negative (NEG) Urine RBC 0 /HPF (0-2) Urine WBC 0 /HPF (0-4) Urine Bacteria 0 /HPF (0-FEW) Laboratory Tests Test 03/17/19 11:40 03/17/19 11:50 03/17/19 12:00 03/17/19 13:25 White Blood Count 7.3 x10^3/uL (4.0-11.0) Red Blood Count 4.06 x10^6/uL (4.30-5.70) Hemoglobin 12.3 g/dL (13.0-17.5) Hematocrit 36.9 % (39.0-53.0) Mean Corpuscular Volume 91 fL (79-100) Mean Corpuscular Hemoglobin 30 pg (25-35) Mean Corpuscular Hemoglobin Concent 33 g/dL (31-37) Red Cell Distribution Width 14.9 % (11.5-14.5) Platelet Count 106 x10^3/uL (140-400) Neutrophils (%) (Auto) 69 % (31-73) Lymphocytes (%) (Auto) 18 % (24-48) Monocytes (%) (Auto) 10 % (0-9) Eosinophils (%) (Auto) 2 % (0-3) Basophils (%) (Auto) 0 % (0-3) Neutrophils # (Auto) 5.0 x10^3/uL (1.8-7.7) Lymphocytes # (Auto) 1.4 x10^3/uL (1.0-4.8) Monocytes # (Auto) 0.7 x10^3/uL (0.0-1.1) Eosinophils # (Auto) 0.2 x10^3/uL (0.0-0.7) Basophils # (Auto) 0.0 x10^3/uL (0.0-0.2) Prothrombin Time 15.0 SEC (11.7-14.0) Prothromb Time International Ratio 1.2 (0.8-1.1) Activated Partial Thromboplast Time 31 SEC (24-38) Fibrinogen 851 mg/dL (200-440) Sodium Level 153 mmol/L (136-145) Potassium Level 3.6 mmol/L (3.5-5.1) Chloride Level 117 mmol/L (98-107) Carbon Dioxide Level 30 mmol/L (21-32) Anion Gap 6 (6-14) Blood Urea Nitrogen 14 mg/dL (8-26) Creatinine 0.5 mg/dL (0.7-1.3) Estimated GFR (Cockcroft-Gault) 182.3 Glucose Level 88 mg/dL (70-99) Lactic Acid Level 0.8 mmol/L (0.4-2.0) Calcium Level 8.3 mg/dL (8.5-10.1) Phosphorus Level 3.2 mg/dL (2.6-4.7) Magnesium Level 1.8 mg/dL (1.8-2.4) Total Bilirubin 0.4 mg/dL (0.2-1.0) Direct Bilirubin 0.2 mg/dL (0.0-0.2) Gamma Glutamyl Transpeptidase 78 U/L (10-85) Aspartate Amino Transf (AST/SGOT) 42 U/L (15-37) Alanine Aminotransferase (ALT/SGPT) 21 U/L (16-63) Alkaline Phosphatase 76 U/L (46-116) Lactate Dehydrogenase 376 U/L (85-227) Total Protein 6.9 g/dL (6.4-8.2) Albumin 2.5 g/dL (3.4-5.0) Amylase Level 217 U/L (25-115) Lipase 369 U/L (73-393) Ionized Calcium 1.13 mmol/L (1.13-1.32) O2 Saturation 100 % (92-99) Arterial Blood pH 7.39 (7.35-7.45) Arterial Blood pCO2 at Patient Temp 43 mmHg (35-46) Arterial Blood pO2 at Patient Temp 499 mmHg (75-108) Arterial Blood HCO3 25 mmol/L (21-28) Arterial Blood Base Excess 0 mmol/L (-3-3) FiO2 100 Glucose (Fingerstick) 74 mg/dL (70-99) Test 03/17/19 16:08 03/17/19 17:50 03/17/19 18:06 03/17/19 18:13 Glucose (Fingerstick) 79 mg/dL (70-99) 89 mg/dL (70-99) White Blood Count 7.3 x10^3/uL (4.0-11.0) Red Blood Count 4.13 x10^6/uL (4.30-5.70) Hemoglobin 12.2 g/dL (13.0-17.5) Hematocrit 37.7 % (39.0-53.0) Mean Corpuscular Volume 91 fL (79-100) Mean Corpuscular Hemoglobin 30 pg (25-35) Mean Corpuscular Hemoglobin Concent 32 g/dL (31-37) Red Cell Distribution Width 14.8 % (11.5-14.5) Platelet Count 111 x10^3/uL (140-400) Neutrophils (%) (Auto) 70 % (31-73) Lymphocytes (%) (Auto) 16 % (24-48) Monocytes (%) (Auto) 12 % (0-9) Eosinophils (%) (Auto) 2 % (0-3) Basophils (%) (Auto) 0 % (0-3) Neutrophils # (Auto) 5.1 x10^3/uL (1.8-7.7) Lymphocytes # (Auto) 1.1 x10^3/uL (1.0-4.8) Monocytes # (Auto) 0.9 x10^3/uL (0.0-1.1) Eosinophils # (Auto) 0.2 x10^3/uL (0.0-0.7) Basophils # (Auto) 0.0 x10^3/uL (0.0-0.2) Prothrombin Time 15.1 SEC (11.7-14.0) Prothromb Time International Ratio 1.2 (0.8-1.1) Activated Partial Thromboplast Time 31 SEC (24-38) Fibrinogen 918 mg/dL (200-440) Sodium Level 157 mmol/L (136-145) Potassium Level 4.0 mmol/L (3.5-5.1) Chloride Level 117 mmol/L (98-107) Carbon Dioxide Level 29 mmol/L (21-32) Anion Gap 11 (6-14) Blood Urea Nitrogen 14 mg/dL (8-26) Creatinine 0.7 mg/dL (0.7-1.3) Estimated GFR (Cockcroft-Gault) 123.7 Glucose Level 93 mg/dL (70-99) Calcium Level 8.5 mg/dL (8.5-10.1) Phosphorus Level 4.1 mg/dL (2.6-4.7) Magnesium Level 1.8 mg/dL (1.8-2.4) Total Bilirubin 0.7 mg/dL (0.2-1.0) Direct Bilirubin 0.1 mg/dL (0.0-0.2) Gamma Glutamyl Transpeptidase 104 U/L (10-85) Aspartate Amino Transf (AST/SGOT) 52 U/L (15-37) Alanine Aminotransferase (ALT/SGPT) 21 U/L (16-63) Alkaline Phosphatase 79 U/L (46-116) Lactate Dehydrogenase 461 U/L (85-227) Total Protein 7.2 g/dL (6.4-8.2) Albumin 2.6 g/dL (3.4-5.0) Amylase Level 236 U/L (25-115) Lipase 420 U/L (73-393) O2 Saturation 98 % (92-99) Arterial Blood pH 7.45 (7.35-7.45) Arterial Blood pCO2 at Patient Temp 18 mmHg (35-46) Arterial Blood pO2 at Patient Temp 133 mmHg (75-108) Arterial Blood HCO3 12 mmol/L (21-28) Arterial Blood Base Excess -10 mmol/L (-3-3) Test 03/17/19 18:25 03/17/19 19:15 03/17/19 19:58 03/17/19 21:57 O2 Saturation 100 % (92-99) 98 % (92-99) Arterial Blood pH 7.38 (7.35-7.45) 7.39 (7.35-7.45) Arterial Blood pCO2 at Patient Temp 42 mmHg (35-46) 41 mmHg (35-46) Arterial Blood pO2 at Patient Temp 456 mmHg (75-108) 108 mmHg (75-108) Arterial Blood HCO3 24 mmol/L (21-28) 25 mmol/L (21-28) Arterial Blood Base Excess -1 mmol/L (-3-3) -1 mmol/L (-3-3) FiO2 100 40 Glucose (Fingerstick) 75 mg/dL (70-99) 85 mg/dL (70-99) Test 03/17/19 23:52 03/18/19 01:00 03/18/19 01:54 03/18/19 03:51 Glucose (Fingerstick) 93 mg/dL (70-99) 89 mg/dL (70-99) 87 mg/dL (70-99) White Blood Count 7.1 x10^3/uL (4.0-11.0) Red Blood Count 3.97 x10^6/uL (4.30-5.70) Hemoglobin 11.9 g/dL (13.0-17.5) Hematocrit 36.1 % (39.0-53.0) Mean Corpuscular Volume 91 fL (79-100) Mean Corpuscular Hemoglobin 30 pg (25-35) Mean Corpuscular Hemoglobin Concent 33 g/dL (31-37) Red Cell Distribution Width 14.8 % (11.5-14.5) Platelet Count 102 x10^3/uL (140-400) Neutrophils (%) (Auto) 67 % (31-73) Lymphocytes (%) (Auto) 18 % (24-48) Monocytes (%) (Auto) 12 % (0-9) Eosinophils (%) (Auto) 3 % (0-3) Basophils (%) (Auto) 1 % (0-3) Neutrophils # (Auto) 4.8 x10^3/uL (1.8-7.7) Lymphocytes # (Auto) 1.2 x10^3/uL (1.0-4.8) Monocytes # (Auto) 0.9 x10^3/uL (0.0-1.1) Eosinophils # (Auto) 0.2 x10^3/uL (0.0-0.7) Basophils # (Auto) 0.0 x10^3/uL (0.0-0.2) Prothrombin Time 16.1 SEC (11.7-14.0) Prothromb Time International Ratio 1.3 (0.8-1.1) Activated Partial Thromboplast Time 32 SEC (24-38) Fibrinogen 864 mg/dL (200-440) Sodium Level 156 mmol/L (136-145) Potassium Level 3.6 mmol/L (3.5-5.1) Chloride Level 119 mmol/L (98-107) Carbon Dioxide Level 29 mmol/L (21-32) Anion Gap 8 (6-14) Blood Urea Nitrogen 17 mg/dL (8-26) Creatinine 0.8 mg/dL (0.7-1.3) Estimated GFR (Cockcroft-Gault) 106.0 Glucose Level 111 mg/dL (70-99) Lactic Acid Level 1.4 mmol/L (0.4-2.0) Calcium Level 8.8 mg/dL (8.5-10.1) Ionized Calcium 1.16 mmol/L (1.13-1.32) Phosphorus Level 4.1 mg/dL (2.6-4.7) Total Bilirubin 0.5 mg/dL (0.2-1.0) Direct Bilirubin 0.3 mg/dL (0.0-0.2) Gamma Glutamyl Transpeptidase 131 U/L (10-85) Aspartate Amino Transf (AST/SGOT) 49 U/L (15-37) Alanine Aminotransferase (ALT/SGPT) 21 U/L (16-63) Alkaline Phosphatase 78 U/L (46-116) Lactate Dehydrogenase 366 U/L (85-227) Total Protein 6.9 g/dL (6.4-8.2) Albumin 2.5 g/dL (3.4-5.0) Amylase Level 206 U/L (25-115) Lipase 360 U/L (73-393) Test 03/18/19 04:00 03/18/19 06:00 03/18/19 06:02 03/18/19 06:14 O2 Saturation 99 % (92-99) Arterial Blood pH 7.39 (7.35-7.45) Arterial Blood pCO2 at Patient Temp 44 mmHg (35-46) Arterial Blood pO2 at Patient Temp 387 mmHg (75-108) Arterial Blood HCO3 26 mmol/L (21-28) Arterial Blood Base Excess 1 mmol/L (-3-3) FiO2 100 White Blood Count 6.7 x10^3/uL (4.0-11.0) Red Blood Count 3.80 x10^6/uL (4.30-5.70) Hemoglobin 11.3 g/dL (13.0-17.5) Hematocrit 34.8 % (39.0-53.0) Mean Corpuscular Volume 92 fL (79-100) Mean Corpuscular Hemoglobin 30 pg (25-35) Mean Corpuscular Hemoglobin Concent 32 g/dL (31-37) Red Cell Distribution Width 14.7 % (11.5-14.5) Platelet Count 97 x10^3/uL (140-400) Neutrophils (%) (Auto) 66 % (31-73) Lymphocytes (%) (Auto) 20 % (24-48) Monocytes (%) (Auto) 11 % (0-9) Eosinophils (%) (Auto) 3 % (0-3) Basophils (%) (Auto) 0 % (0-3) Neutrophils # (Auto) 4.4 x10^3/uL (1.8-7.7) Lymphocytes # (Auto) 1.3 x10^3/uL (1.0-4.8) Monocytes # (Auto) 0.8 x10^3/uL (0.0-1.1) Eosinophils # (Auto) 0.2 x10^3/uL (0.0-0.7) Basophils # (Auto) 0.0 x10^3/uL (0.0-0.2) Prothrombin Time 15.6 SEC (11.7-14.0) Prothromb Time International Ratio 1.3 (0.8-1.1) Activated Partial Thromboplast Time 29 SEC (24-38) Fibrinogen 881 mg/dL (200-440) Sodium Level 158 mmol/L (136-145) Potassium Level 3.3 mmol/L (3.5-5.1) Chloride Level 120 mmol/L (98-107) Carbon Dioxide Level 29 mmol/L (21-32) Anion Gap 9 (6-14) Blood Urea Nitrogen 16 mg/dL (8-26) Creatinine 0.7 mg/dL (0.7-1.3) Estimated GFR (Cockcroft-Gault) 123.7 Glucose Level 104 mg/dL (70-99) Lactic Acid Level 1.2 mmol/L (0.4-2.0) Calcium Level 8.4 mg/dL (8.5-10.1) Ionized Calcium 1.14 mmol/L (1.13-1.32) Phosphorus Level 3.4 mg/dL (2.6-4.7) Magnesium Level 2.0 mg/dL (1.8-2.4) Total Bilirubin 0.5 mg/dL (0.2-1.0) Direct Bilirubin 0.2 mg/dL (0.0-0.2) Gamma Glutamyl Transpeptidase 137 U/L (10-85) Aspartate Amino Transf (AST/SGOT) 50 U/L (15-37) Alanine Aminotransferase (ALT/SGPT) 19 U/L (16-63) Alkaline Phosphatase 77 U/L (46-116) Lactate Dehydrogenase 367 U/L (85-227) Total Protein 6.8 g/dL (6.4-8.2) Albumin 2.4 g/dL (3.4-5.0) Amylase Level 173 U/L (25-115) Lipase 277 U/L (73-393) Glucose (Fingerstick) 68 mg/dL (70-99) 79 mg/dL (70-99) Test 03/18/19 07:56 03/18/19 08:43 03/18/19 10:12 Glucose (Fingerstick) 70 mg/dL (70-99) 98 mg/dL (70-99) Urine Collection Type Unknown Urine Color Yellow Urine Clarity Clear Urine pH 5.0 Urine Specific [place] 1.020 Urine Protein Negative mg/dL (NEG-TRACE) Urine Glucose (UA) Negative mg/dL (NEG) Urine Ketones (Stick) Negative mg/dL (NEG) Urine Blood Negative (NEG) Urine Nitrite Negative (NEG) Urine Bilirubin Negative (NEG) Urine Urobilinogen Dipstick 0.2 mg/dL (0.2 mg/dL) Urine Leukocyte Esterase Negative (NEG) Urine RBC 0 /HPF (0-2) Urine WBC 0 /HPF (0-4) Urine Bacteria 0 /HPF (0-FEW) Medications Active Scripts Medications Dose Route/Sig Max Daily Dose Days Date Category Omeprazole 40 Mg Capsule.dr 40 Mg PO DAILY 04/30/18 Reported Phenytoin 50 Mg Tab.chew 100 Mg PO QHS 04/30/18 Reported Phenytoin 50 Mg Tab.chew 75 Mg PO DAILY08 04/30/18 Reported Impression . IMPRESSION: 1. Acute respiratory failure, multifactorial. 2. Suspect sepsis. 3. Large left middle cerebral artery infarct, unknown time of onset. 4. Cerebral palsy. 5. Epilepsy by history. 6. Nausea, vomiting, and diarrhea. 7. Possible aspiration pneumonia. MRI BRAIN Impression: 1. There are large areas of restricted diffusion bilaterally greater on the left, evidence of recent acute/early subacute infarcts with areas of acute parenchymal hemorrhage and also mild intraventricular hemorrhage, also probable degree of subarachnoid hemorrhage. There is degree of inferior herniation of the hemorrhagic medial left temporal lobe below the tentorium by about 2 cm, to lesser degree on the right. There is left uncal herniation. There is distortion of the brainstem and superior martín. There is also diffusion signal abnormality of the brainstem likely component of ischemia and edema. Cerebellar tonsils at the lower limits of normal, effacement of the fourth ventricle greater inferiorly. 2. Intradural vertebral artery flow voids are not well visualized on either side on this exam although visualization of the basilar artery flow-void. 3. 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 4. There is again lateral ventriculomegaly although more chronic appearance. There is effacement of the left temporal horn, dilatation of the right temporal horn. Plan . PT TO BE EXTUBATED TODAY ORGAN DONOR ALEX LYONS MD Mar 18, 2019 10:53
[2019-03-18] MEDS ORDERED: HEPARIN for IV BOLUS 10,000 UNIT/10 ML VIAL. IVP ONE (12:00)
--- NOTE | 2019-03-18 12:06 | PATHOLOGY ---
Note [facility] Accession Number: [id number] TESTS RESULT FLAG UNITS REF RANGE LAB Clinician Provided Cytology Information No. of containers..01 Other (Miscellaneous) Source: LT LUNG BAL DIAGNOSIS: LT LUNG BAL INCONCLUSIVE. NORMAL BRONCHIAL CELLS AND MACROPHAGES ARE PRESENT. RARE GROUP OF ATYPICAL CELLS PRESENT AMONGST BENIGN AND REACTIVE BRONCHIAL EPITHELIAL CELLS AND ABUNDANT ACUTE AND CHRONIC INFLAMMATORY CELLS. A PROPERLY CONTROLLED SPECIAL STAIN IS PERFORMED. GMS (THIN PREP) - NEGAIVE. PLEASE SEE ALSO THE RIGHT LUNG BAL SPECIMEN ([id number]). CLINICAL AND RADIOGRPAHIC CORRELATION IS RECOMMENDED. Pathologist ICD10: 02 J96.90 Signed out by: Lisa Carrera MD, Pathologist NPI- [id number] Performed by: Melissa Barrera, Traveling Passenger Agent ([facility]) Gross description: 01 10ML, RED, CLOUDY /LCS 05/31/1840 0000 Local FLAG LEGEND: L-Low Normal,H-High Normal,LL-Alert Low,HH-Alert High <-Panic Low,>-Panic High,A-Abnormal,AA-Critical Abnormal Performed at: [place] [facility] [address] [place] [address] Andrés Graham MD, 02 [place] [facility] [address] [place] [address] Daniel Goldstein MD, Specimen Comment: A courtesy copy of this report has been sent to Specimen Comment: [phone], . Specimen Comment: Report sent to / DR CRUM Specimen Comment: A duplicate report has been generated due to demographic updates. Performed at: [address], [place], [place] [id number] MD Andrés Graham MD Phone: [phone]
--- NOTE | 2019-03-18 12:06 | PATHOLOGY ---
Note [facility] Accession Number: [id number] TESTS RESULT FLAG UNITS REF RANGE LAB Clinician Provided Cytology Information No. of containers..01 Other (Miscellaneous) Source: RT LUNG BAL DIAGNOSIS: RT LUNG BAL NEGATIVE FOR MALIGNANT EPITHELIAL CELLS. NORMAL BRONCHIAL CELLS AND MACROPHAGES ARE PRESENT. BENIGN AND REACTIVE BRONCHIAL EPITHELIAL CELLS PRESENT AMONGST RARE REACTIVE SQUAMOUS EPITHELIAL CELLS AND ABUNDANT ACUTE AND CHRONIC INFLAMMATORY CELLS. A PROPERLY CONTROLLED SPECIAL STAIN IS PERFORMED. GMS (THIN PREP) - NEGATIVE. PLEASE SEE ALSO THE LEFT LUNG BAL SPECIMEN ([id number]). CLINICAL AND RADIOGRAPHIC CORRELATION IS RECOMMENDED. Pathologist ICD10: 02 J96.90 Signed out by: Lisa Carrera MD, Pathologist NPI- [id number] Performed by: Melissa Barrera, Manager Of Medical ([facility]) Gross description: 01 5ML, RED, CLOUDY /LCS 05/31/1840 0000 Local FLAG LEGEND: L-Low Normal,H-High Normal,LL-Alert Low,HH-Alert High <-Panic Low,>-Panic High,A-Abnormal,AA-Critical Abnormal Performed at: [place] [facility] [address] [place] [address] Andrés Graham MD, [address] [facility] [address] [place] [address] Daniel Goldstein MD, Specimen Comment: A courtesy copy of this report has been sent to Specimen Comment: [phone], . Specimen Comment: [id number] Specimen Comment: Report sent to / DR CRUM Specimen Comment: A duplicate report has been generated due to demographic updates. Performed at: [address], [place], [place] [id number] MD Andrés Graham MD Phone: [phone]
--- NOTE | 2019-03-18 13:45 | NUR ---
Pt taken to PACU at this time. [facility] members and family at the bedside.
--- NOTE | 2019-03-18 14:00 | NUR ---
Pt extubated at this time in PACU, family at the bedside, Dr. Shukla present to pronounce cardiac .
--- NOTE | 2019-03-18 14:19 | NUR ---
Pt pronounced by Dr. Shukla at this time, pt then rushed to OR for organ procurement.
[2019-03-18] MEDS: MORPHINE SULFATE 10 MG/ML VIAL. IV PRN ×2 (14:55→14:56)
== END 2019-03-18 14:19 | disposition expired | DRG 870 ==
LOC: 1 WEST ICU 06:05
PROVIDERS: ADMIT Internal Medicine; ATTEND Internal Medicine
PROC: 5A1955Z Respiratory Ventilation, Greater than 96 Consecutive Hours (ICD-10-PCS; principal; 2019-03-14)
PROC: 0B9J7ZX Drainage of Left Lower Lung Lobe, Via Natural or Artificial Opening, Diagnostic (ICD-10-PCS; 2019-03-17)
PROC: 0B9F7ZX Drainage of Right Lower Lung Lobe, Via Natural or Artificial Opening, Diagnostic (ICD-10-PCS; 2019-03-17)
DX: A41.9 Sepsis, unspecified organism (principal); J96.01 Acute respiratory failure with hypoxia; I63.513 Cerebral infarction due to unspecified occlusion or stenosis of bilateral middle cerebral arteries; I60.9 Nontraumatic subarachnoid hemorrhage, unspecified; I61.5 Nontraumatic intracerebral hemorrhage, intraventricular; G93.5 Compression of brain; J95.811 Postprocedural pneumothorax; J98.11 Atelectasis; E87.6 Hypokalemia; G40.909 Epilepsy, unspecified, not intractable, without status epilepticus; Z66 Do not resuscitate; Z86.73 Personal history of transient ischemic attack (TIA), and cerebral infarction without residual deficits; Z89.421 Acquired absence of other right toe(s); K20.9 Esophagitis, unspecified; R41.89 Other symptoms and signs involving cognitive functions and awareness
CPT/HCPCS: 31622; 36415; 36600; 70551; 71045; 71250; 80048; 80053; 80061; 80076; 80202; 81001; 82150; 82310; 82565; 82805; 82962; 82977; 83036; 83605; 83615; 83690; 83735; 84100; 85007; 85025; 85027; 85384; 85610; 85730; 86713; 86850; 86900; 86901; 87040; 87070; 87086; 87102; 87116; 87205; 87252; 88112; 88313; 93306; 93308; 93320; 93325; 94002; 94003; 94640; C9113; J0696; J1644; J2060; J2270; J2543; J3370; J3490; J7030; J7050; Q2009; G0378